=== PATIENT | female | born 1960 | race Caucasian/White ===

== ENCOUNTER 2019-04-06 15:46 | Inpatient (IN) | payer MEDICARE, MEDICAID, SELFPAY ==
[2019-04-06] VITALS (9 sets, daily range): BP systolic 127–180; BP diastolic 53–115; PULSE 81–106; RESP 18–26; TEMP 36.8–37; O2SAT 90–98; BMI 46.3; BMI 45.2
--- NOTE | 2019-04-06 16:13 | EKG12_ITS ---
Test Reason : SOB Blood Pressure : / mmHG Vent. Rate : 092 BPM Atrial Rate : 092 BPM P-R Int : 150 ms QRS Dur : 076 ms QT Int : 340 ms P-R-T Axes : 069 054 052 degrees QTc Int : 420 ms Normal sinus rhythm Normal ECG Confirmed by YAW LEIJA, GERALD ([id number]), video news editor JAMES BERGER ([id number]) on 04/08/2019 2:04:50 PM Referred By: Jory Raines Confirmed By:GERALD TIDWELL MD
--- NOTE | 2019-04-06 16:34 | ED.VIS.DYS ---
History of Present Illness Chief Complaint: Shortness of Breath Informant: Patient Narrative: Patient presenting for evaluation secondary to shortness of breath. Patient has a underlying history of COPD, chronically on 3 L at home. Patient reports that over the course of about the last 10 days she has had persistent wheezing cough shortness of breath and subjective fevers. She denies any nausea vomiting or diarrhea. She reports that she presented to her primary care office, and they started her on a course of prednisone. She reports that she has been on that over the course of about the last 8 days but is not having any improvement in her symptoms. She denies any chest pain, she does endorse that she has been having some issues with orthopnea recently. She denies any unintended weight gain. No recent hospital admissions or antibiotic exposures. Review of systems otherwise negative. Past Medical History - Allergies and Home Meds Allergies/Adverse Reactions: Allergies cephalexin [From Keflex] Allergy (Verified 04/06/19 15:47) Angioedema ciprofloxacin [From Cipro] Allergy (Verified 04/06/19 15:47) Angioedema sulfamethoxazole [From Bactrim] Allergy (Verified 04/06/19 15:47) Angioedema trimethoprim [From Bactrim] Allergy (Verified 04/06/19 15:47) Angioedema Primary Care Physician: Jake Chavez MD [Family Provider] - Past Medical History: - - COPD, CHF, diabetes, hyperlipidemia Smoking Status: Current every day smoker Review of Systems All systems negative except as indicated General: Reports: Fever, Subjective Eyes: Denies: Visual changes - bilaterally, Diplopia ENT: Denies: Rhinorrhea, Sore throat Cardiovascular: Denies: Chest pain Respiratory: Reports: Dyspnea, Cough, Dyspnea on exertion, Orthopnea Gastrointestinal: Denies: Abdominal pain, Nausea, Vomiting, Diarrhea, Melena, Hematochezia Genitourinary: Denies: Dysuria, Hematuria, Frequency Musculoskeletal: Denies: Back pain, Extremity Pain Skin: Denies: Rash, Wounds Neurological: Denies: Headache, Weakness, Numbness Physical Exam Vital Signs/Narrative: Vital Signs Temp Pulse Resp BP Pulse Ox 04/06/19 15:58 89 24 H 98 04/06/19 15:47 98.5 F 81 18 148/70 H 97 Inital Vital Signs reviewed: Yes General: Well nourished, Well developed, Obese, No Acute Distress Head: Normocephalic, Atraumatic Eyes: Perrl, EOMI. Negative for: Pale conjunctiva, Scleral icterus ENT: Moist mucous membranes Neck: Supple, Nontender Cardiovascular: Regular rate, Regular rhythm, No murmurs Respiratory: - - Prolonged expiratory phase with wheezing throughout the lung santiago and some poor air movement. No respiratory distress or accessory muscle usage. Abdomen: Soft, Nontender, Nondistended, Normal bowel sounds Extremities: Edema - +1 bilaterally symmetric Skin: Normal color, No rash Neurological: Alert, Oriented x3, Cranial nerves II-XII grossly intact, Normal Strength, Normal Sensation Psychological: Normal affect, Normal Mood Diagnostic/Tx/Re-eval Chest X-Ray - ED: 2 View, Read by ED Physician, Read by Radiologist, Normal - Medical Decision Making Patient presenting for evaluation secondary to shortness of breath. Patient was given breathing treatments and Solu-Medrol in the emergency department. PA and lateral chest x-ray by my personal review as well as radiology is found to be negative. CBC chemistry and troponin as well as BNP found to be unremarkable. After 3 breathing treatments, the patient was still significantly dyspneic and was hypoxic on her home O2 at 3 L. She was given an additional 3 breathing treatments, and still has hypoxia at rest on her home O2. I believe she requires admission for failure of outpatient treatment. Disposition: Admit to Med Surg ED Disposition - Plan for ED Patient: Disposition: Acute Care Hospital [facility] Diagnosis: COPD exacerbation, Failure of outpatient treatment
[2019-04-06] MEDS: Albuterol 2.5 MG/3 ML VIAL.NEB. INHALATION ×6 (16:40→18:51)
[2019-04-06] MEDS: Ipratropium/Albuterol Sulfate 3 ML AMPUL.NEB INHALATION ×2 (16:40→23:00)
--- NOTE | 2019-04-06 16:42 | ED.RN ---
2 attempts by moustapha flores 3 attempted by this nurse. unsuccessful./
[2019-04-06] MEDS: MethylPREDNISolone 125 MG/2 ML Vial IV (16:54)
--- NOTE | 2019-04-06 17:05 | RAD_ITS ---
STUDY: X-RAY CHEST REASON FOR EXAM: Female, 59 years old. Chest pain TECHNIQUE: Frontal view of the chest COMPARISON: None. FINDINGS: The lungs are clear. There are no pleural effusions. There is no pneumothorax. The heart is normal in size. The visualized osseous structures are within normal limits. RAD/Chest PA and Lateral IMPRESSION: No acute thoracic pathology. Electronically Signed: Jake Mariano, at 17:34 EST Tel , Service support ,
[2019-04-06 17:37] LABS: Absolute Lymphocyte Count 1.99 X10^3/uL (0.83-4.51); Absolute Neutrophil Count 6.5 X10^3/uL (2.0-7.7); Basophil# 0.03 X10^3/uL; Basophil% 0.3 % (0-1); Eosinophil# 0.09 X10^3/uL; Hematocrit 40.6 % (37-47); Hemoglobin 13.1 g/dL (12.0-15.0); Lymphocyte # 1.99 X10^3/ul (4.0); Lymphocyte % 21.2 % (19-41); Mean Corp Hgb Conc 32.3 g/dL (32-36); Mean Corpuscular Hgb 30.1 pg (27.0-32.0); Mean Corpuscular Volume 93.3 fL (81-99); Mean Platelet Vol. 10.2 fl (6.2-12.0); Monocyte# 0.74 X10^3/uL; Monocyte% 7.9 % (0-10); NRBC Flagged by Analyzer 0 % (0-5); Neutrophil # 6.47 X10^3/uL (2.7-7.7); Neutrophil % 68.9 % (47-70); Platelet Count 215 K/mm3 (150-450); RBC Distribution Width CV 14.1 % (11.6-14.6); RBC Distribution Width SD 48.4 fl (35.1-43.9); Red Blood Count 4.35 M/mm3 (4.2-5.4); White Blood Count 9.4 K/mm3 (4.4-11.0)
[2019-04-06 17:40] LABS: Anion Gap 5 (5-15); BUN 9 mg/dL (7-18); BUN/Creat Ratio 11.2 RATIO (10-20); Calcium,Total 9.1 mg/dL (8.5-10.1); Chloride 100 mmol/L (98-107); EST Glomerular Filtration Rate 78 mL/min (>60); Est Glom Filt Rate - Afr Amer 94 mL/min (>60); Estimated Creatinine Clearance 60.62 ml/min; Glucose 125 mg/dL (74-106); Potassium 4.3 mmol/L (3.5-5.1); Sodium Level 134 mmol/L (136-145)
--- NOTE | 2019-04-06 20:11 | PCM.HP.STD ---
History of Present Illness Date of Admission: 04/06/19 The patient is a 59 year old F with multiple medical issues who presented to the ED today with worsening SOB. She has chronic underlying COPD for which she is only on albuterol at home. She was seen by her PCP about 8 days ago, after having 2 days of SOB, and was given a course of prednisone. She has not had any improvement in her sx and still is complaining SOB. She states she wheezes chronically and still smokes 1/2 PPD but has been smoking for 46 yrs and was smoking 3 PPD up until about 10 yrs ago. She is on chronic O2 at home, which she removes when she smokes, of about 3 L. She denies CP but does c/o of some chest tightness with trying to breath deeply. She states that she is feeling a little better since treatment in the ED but is still fairly SOB. She does have ISABELL and wears CPAP at home of she thinks 10 cm H20. She has chills but no documented fever. She is tachypneic and sats are 90% at the lowest on 3 L in the ED. Past Medical History Past Medical History (Chronic Problems): Chronic Problems (Last Updated 04/06/19 @ 21:11 by Jory Raines DO) COPD exacerbation (Chronic) Medical History: Medical History (Last Updated 04/06/19 @ 21:11 by Jory Raines DO) Anxiety F41.9 Depression F32.9 Diabetes E11.9 GERD (gastroesophageal reflux disease) K21.9 Morbid obesity E66.01 Neuropathy G62.9 ISABELL (obstructive sleep apnea) G47.33 COPD (chronic obstructive pulmonary disease) J44.9 Allergies cephalexin [From Keflex] Allergy (Verified 04/06/19 15:47) Angioedema ciprofloxacin [From Cipro] Allergy (Verified 04/06/19 15:47) Angioedema sulfamethoxazole [From Bactrim] Allergy (Verified 04/06/19 15:47) Angioedema trimethoprim [From Bactrim] Allergy (Verified 04/06/19 15:47) Angioedema Home Medications: Ambulatory Orders Medication Instructions Recorded Colestipol HCl 1 gm PO DAILY 04/06/19 Divalproex Ec 500 mg PO BID 04/06/19 Ibuprofen 600 mg PO TID 04/06/19 Insulin Glargine,Hum.rec.anlog 60 unit SQ QHS 04/06/19 [Basaglar Kwikpen U-100] Insulin Regular, Human [Novolin R] 0 unit SUBCUT ACHS 04/06/19 Lorazepam 0.5 mg PO BID PRN PRN 04/06/19 Metformin HCl 500 mg PO BID 04/06/19 Pantoprazole Sodium [Protonix] 40 mg PO DAILY 04/06/19 Potassium Chloride [K-Dur] 30 meq PO BID 04/06/19 Prednisone 10 mg PO DAILY 04/06/19 Pregabalin 100 mg PO TID 04/06/19 Quetiapine Fumarate [Seroquel] 12.5 mg PO DAILY 04/06/19 Sucralfate [Carafate] 1 gm PO BID 04/06/19 Venlafaxine HCl [Venlafaxine HCl 75 mg PO DAILY 04/06/19 ER] traZODone [Desyrel] 100 mg PO QHS 04/06/19 Surgical History: no surgical history Psychiatric History: No pertinent psych hx Lives: Spouse/ Significant Other Smoking Status: Current every day smoker Tobacco Use: Cigarettes - 10 cigs/day Alcohol: None Drugs: None Review of Systems Constitutional: Reports: Chills, Weakness, Fatigue. Denies: Anorexia, Fever, Night Sweats, Malaise, Weight Change Eyes: Denies: Blurred vision, Cataracts, Conjunctivae Inflammation, Double vision, Drainage, Eyelid Inflammation, Pain, Redness, Vision Change HEENT: Reports: Nasal Congestion. Denies: Difficulty Hearing, Difficulty Swallowing, Dysphasia, Ear Pain, Eye Pain, Hard of Hearing, Head Aches, Hearing Changes, Nasal bleeding, Post Nasal Drip, Sinus Congestion, Sinus Drainage, Sore Throat, Visual Changes Cardiovascular: Reports: Chest Tightness, Light Headedness, Palpitations, Paroxysmal Noc. Dyspnea, Syncope. Denies: Chest Pain, Claudication, Chest Pressure, Edema, Heaviness, Orthopnea Respiratory: Reports: Cough, Pleuritic Pain, Shortness of Breath, Shortness of breath at rest, Sputum production, Wheezing. Denies: Hemoptysis Gastrointestinal: Denies: Abdominal Pain, Constipation, Diarrhea, Dyspepsia, Hematemesis, Hematochezia, Nausea, Melena, Vomiting Genitourinary: Denies: Dysuria, Frequency, Hematuria, Hesitancy, Incontinence, Nocturia, Retention, Urgency Musculoskeletal: Denies: Arm Pain, Back Pain, Foot Pain, Hand Pain, Joint Pain, Joint stiffness, Joint swelling, Joint Tenderness, Leg Pain, Muscle pain, Neck Pain, Shoulder Pain Skin: Reports: Dryness. Denies: Jaundice, Lesions, Pruritis, Rash, Skin Changes Neurological: Denies: Balance problems, Blurred vision, Double vision, Change in Speech, Slurred speech, Confusion, Difficulty swallowing, Focal weakness, Headaches, Incoordination, Numbness, Tingling, Tremor, Seizures Psychiatric: Denies: Anxiety, Depression, Suicidal Ideations Endocrine: Denies: Change in Body Habitus, Heat/ Cold Intolerance, Polydipsia, Polyuria Hematologic/ Lymphatic: Denies: Adenopathy VTE Information - Inpt Only VTE Present on Admission: No VTE Mechan Device Prophylaxis: SCD's VTE Pharm Prophylaxis ordered?: Yes Patient Problems: Active and Suspected Problems (Last Updated 04/06/19 @ 21:11 by Jory Raines DO) Failure of outpatient treatment (Acute) - Physical Exam Vitals/I&O's: Vital Signs Temp Pulse Resp BP Pulse Ox 98.4 F 104 H 20 H 180/101 H 90 04/06/19 17:24 04/06/19 18:42 04/06/19 18:42 04/06/19 18:42 04/06/19 18:42 Oxygen Flow Rate (L/min) 3 Oxygen Delivery Method Nasal Cannula Weight: 114.759 kg Body Mass Index (BMI) 46.3 General: Alert, Oriented x3, Cooperative, No apparent distress, Well developed, Well nourished, - - MO HEENT: Atraumatic, PERRLA, EOMI, Normocephalic, EAC Clear Oral: Moist Mucosa, No Gingival or Mucosal Lesions/ Ulcerations, - - fair dentition, no thrush Neck: Supple, No JVD, Negative Carotid Bruits, Negative Hepatojugular Reflux, No Nodes, Trachea Midline, Thyroid Normal Size and Texture Lungs: No rhonchi, No rales, Diminished - diffusely, Short of Breath, Tachypneic - very mild, Wheezes - diffuse Cardiovascular: Regular rate, Normal S1, Normal S2, No murmurs, No Ectopic Activity, No rub noted, No Gallop Abdomen: Bowel Sounds Present, Soft, Non Tender, Non-Distended, No Hepato-splenomegaly, Obese Extremities: No clubbing, No cyanosis, Edema - trace B LE Skin: No rashes Musculoskeletal: No Muscle Wasting Lymphatic: No Cervical, Supraclavicular, or Inguinal Adenopathy Neurological: Cranial nerves II-XII grossly intact, Deep Tendon Reflexes 2+/4 and Symmetrical, Neuro grossly intact, Motor Exam 5/5 strength throughout Psych/Mental Status: Normal Affect, Appropriate, Alert and oriented to time, place, person, mood and affect Microbiology Past 72 Hours 04/06/19 16:45 Mucosa - Nose Influenza Types A,B Direct FA (JULIETA) - Final Laboratory Results 04/06/19 16:55: WBC 9.4, RBC 4.35, Hgb 13.1, Hct 40.6, MCV 93.3, MCH 30.1, MCHC 32.3, RDW Std Deviation 48.4 H, RDW Coeff of Da 14.1, Plt Count 215, MPV 10.2, Immature Gran % (Auto) 0.700, Neut % (Auto) 68.9, Lymph % (Auto) 21.2, [place] % (Auto) 7.9, Eos % (Auto) 1.0, Baso % (Auto) 0.3, Absolute Neuts (auto) 6.5, Absolute Lymphs (auto) 1.99, Nucleated RBC % 0 04/06/19 16:55: Sodium 134 L, Potassium 4.3, Chloride 100, Carbon Dioxide 29.0, Anion Gap 5, BUN 9, Creatinine 0.80, Estim Creat Clear Calc 60.62, Est GFR (MDRD) Af Amer 94, Est GFR (MDRD) Non-Af 78, BUN/Creatinine Ratio 11.2, Glucose 125 H, Calcium 9.1, Troponin I < 0.015 04/06/19 16:55: B-Natriuretic Peptide 20.0 Assessment/Plan All Active Problems (Last Updated 04/06/19 @ 21:11 by Jory Raines DO) Failure of outpatient treatment (Acute) Acute on Chronic Hypoxemic Respiratory Insufficiency suspected 2/2 AECOPD -5 L nasal cannula (baseline 3) -ok for sat 90-92% -Azithro and Zosyn (many abx allergies) -DuoNebs scheduled -legionella/S.pneumo urine antigens -flu swab -solumedrol 60 q 6 hrs -check CT chest -cxr limited with body habitus -consider ECHO depending on CT results (trops neg/BMP low) -CPAP at HS -Consult pulm -pt needs outpt f/u ISABELL -CPAP 10 cm H2O at hs MO -recommend wgt loss Mild Hyponatremia -monitor--> may be related to pulm issues DM-2 -check A1c -continue Basal insulin 60 u at HS -hold metformin -SSI Med dose -may need higher doses with steroids Diabetic neuropathy -continue Elavil and Lyrica Depression/Anxiety -continue Seroquel/Effexor -prn ativan (home med) would try to wean GERD -Continue PPI/Carafate Tobacco Abuse -Nicotine patch -recommend cessation DVT prophylaxis -SCD/Heparin Code Visit Inpatient E&M: [id number] Init Hosp L3
[2019-04-06] MEDS: Heparin Injection (Vial) 5,000 UNIT/ML VIAL 5000 UNIT SC (23:07)
[2019-04-06] MEDS: traZODone 100 MG Tablet PO (23:08)
[2019-04-06] MEDS: guaiFENesin 600 MG Tablet PO (23:08)
[2019-04-06] MEDS: QUEtiapine 25 MG Tablet 12.5 MG PO (23:08)
[2019-04-06] MEDS: Pregabalin 50 MG Capsule 100 MG PO (23:12)
[2019-04-06 23:21] LABS: Bedside Glucose 290 mg/dL (70-110)
[2019-04-07] VITALS (13 sets, daily range): BP systolic 122–143; BP diastolic 60–86; PULSE 70–102; RESP 14–24; TEMP 36.6–37; O2SAT 91–96
--- NOTE | 2019-04-07 00:01 | CT_ITS ---
HISTORY: PERSISTENT SOB, COPD, DAILY 02, 1/2 PPD SMOKER, DIAB TECHNIQUE: Helically acquired images of the chest were obtained without IV contrast. Number of images including paperwork: [id number]. A radiation dose optimization technique was used for this scan. COMPARISON: None FINDINGS: Motion artifact mildly limits evaluation. VASCULATURE: Vascular calcification including calcification of the coronary arteries. HEART/PERICARDIUM: Mildly enlarged MEDIASTINUM: Unremarkable. ADENOPATHY: No pathologic appearing adenopathy. THYROID: Unremarkable visualized portions. LUNG PARENCHYMA: No consolidation or mass. Mild linear basilar subsegmental atelectasis versus scarring. No focal infiltrate. PLEURAL SPACES: Unremarkable. UPPER ABDOMEN: Bilateral adrenal adenomas, measuring about 2.6 x 1.5 cm on the right and 2.3 x 1.7 cm on the left. OSSEOUS AND SOFT TISSUE STRUCTURES: No acute skeletal findings. Radiopaque cement within L1 partially visualized. DEVICES: Cervical spine hardware partially visualized. CT/Chest without Contrast IMPRESSION: Mild linear basilar subsegmental atelectasis versus scarring. Individualized dose optimization techniques were used for this CT. at 0101 Reported and signed by: Kori Stapleton MD Electronically Signed: Kori Stapleton MD at 1:01 EST Tel , Service support ,
[2019-04-07] MEDS: MethylPREDNISolone 125 MG/2 ML Vial 60 MG IV ×4 (00:39→17:47)
[2019-04-07] MEDS: Ipratropium/Albuterol Sulfate 3 ML AMPUL.NEB INHALATION ×6 (02:30→23:51)
[2019-04-07] MEDS: Heparin Injection (Vial) 5,000 UNIT/ML VIAL 5000 UNIT SC ×3 (06:12→21:31)
[2019-04-07] MEDS: Pregabalin 50 MG Capsule 100 MG PO ×3 (06:12→21:32)
[2019-04-07 06:19] LABS: Absolute Lymphocyte Count 0.77 X10^3/uL (0.83-4.51); Absolute Neutrophil Count 6.7 X10^3/uL (2.0-7.7); Basophil# 0.02 X10^3/uL; Basophil% 0.3 % (0-1); Hematocrit 39.4 % (37-47); Hemoglobin 12.4 g/dL (12.0-15.0); Lymphocyte # 0.77 X10^3/ul (4.0); Lymphocyte % 10.1 % (19-41); Mean Corp Hgb Conc 31.5 g/dL (32-36); Mean Corpuscular Hgb 29.2 pg (27.0-32.0); Mean Corpuscular Volume 92.9 fL (81-99); Monocyte# 0.11 X10^3/uL; Monocyte% 1.4 % (0-10); NRBC Flagged by Analyzer 0 % (0-5); Neutrophil # 6.68 X10^3/uL (2.7-7.7); Neutrophil % 87.2 % (47-70); Platelet Count 227 K/mm3 (150-450); RBC Distribution Width CV 13.8 % (11.6-14.6); Red Blood Count 4.24 M/mm3 (4.2-5.4); White Blood Count 7.7 K/mm3 (4.4-11.0)
[2019-04-07] MEDS: Sucralfate 1 GM Tablet PO ×2 (06:53→17:46)
[2019-04-07] MEDS: Insulin Lispro 100 UNIT/ML INSULN.PEN SC ×3 (06:53→17:46)
[2019-04-07 07:23] LABS: ALB/GLOB Ratio 0.8 RATIO (0.9-2.4); AST(SGOT) 5 U/L (15-37); Alanine Aminotransfer ALT/SGPT 13 U/L (13-56); Albumin, Serum 3.2 g/dL (3.2-5.0); Alkaline Phosphatase 53 U/L (45-117); Anion Gap 7 (5-15); BUN 12 mg/dL (7-18); BUN/Creat Ratio 12.1 RATIO (10-20); Calcium,Total 8.8 mg/dL (8.5-10.1); Chloride 98 mmol/L (98-107); Creatinine, Serum 0.99 mg/dL (0.55-1.02); EST Glomerular Filtration Rate 61 mL/min (>60); Est Glom Filt Rate - Afr Amer 74 mL/min (>60); Estimated Creatinine Clearance 48.99 ml/min; Glucose 237 mg/dL (74-106); Phosphorus 3.4 mg/dL (2.5-4.9); Potassium 4.7 mmol/L (3.5-5.1); Protein, Total 7.2 g/dL (6.4-8.2); Sodium Level 134 mmol/L (136-145); Thyroid Stim Hormone (TSH) 0.81 uIU/mL (0.358-3.74)
[2019-04-07 07:25] LABS: Bedside Glucose 240 mg/dL (70-110)
--- NOTE | 2019-04-07 07:53 | PCM.CONS.PUL ---
Reason for Consult Date of Consultation: 04/07/19 Reason for Consultation: COPD exacerbation History of Present Illness: The patient is a 59-year-old female, with a history as outlined below, who presented to the emergency department on April 06 with complaints of shortness of breath. The patient reportedly has a history of COPD of unknown severity along with chronic hypoxemic respiratory failure with a baseline 3 L/min supplemental oxygen requirement. The patient reports that she was previously being managed by a transportation broker in [place]. She recently relocated to the area, noting that she was last seen by her prior pulmonary provider in the spring 2018. She apparently was evaluated by her primary care provider last week, who placed her on prednisone. The patient's symptoms apparently did not respond to the use of the steroid. The patient is an active smoker of 0.5 packs of cigarettes per day. She was previously a heavier smoker and has been smoking now for approximately 46 years. In addition to her history of COPD, she reports having known obstructive sleep apnea, for which she is prescribed nocturnal Pap therapy. The patient states that she is currently only prescribed a Ventolin rescue inhaler in her home environment. She does not currently utilize any form of a maintenance inhaler regimen. In addition to her shortness of breath, the patient does report having previously had a cough, which was nonproductive in nature. On presentation to the emergency department, the patient was noted to be afebrile and hemodynamically stable. She was maintaining appropriate oxygen saturations on her baseline 3 L/min requirement. Laboratory evaluation revealed no evidence of a leukocytosis. Chemistry profile was unremarkable. Troponin and BNP were both unremarkable. Plain film chest x-ray revealed no acute cardiopulmonary process. A CT chest was subsequently obtained which revealed no focal infiltrate, consolidation, nodule or mass. The patient was subsequently treated with aerosols and IV steroids. The patient was admitted to the medical surgical floor, where she has been maintained on antimicrobials, bronchodilators and steroids. Past Medical History Past Medical History (Chronic Problems): Chronic Problems (Last Updated 04/06/19 @ 21:11 by Jory Raines DO) COPD exacerbation (Chronic) Medical History: Medical History (Last Updated 04/06/19 @ 21:11 by Jory Raines DO) Anxiety F41.9 Depression F32.9 Diabetes E11.9 GERD (gastroesophageal reflux disease) K21.9 Morbid obesity E66.01 Neuropathy G62.9 ISABELL (obstructive sleep apnea) G47.33 COPD (chronic obstructive pulmonary disease) J44.9 Allergies cephalexin [From Keflex] Allergy (Verified 04/06/19 15:47) Angioedema ciprofloxacin [From Cipro] Allergy (Verified 04/06/19 15:47) Angioedema sulfamethoxazole [From Bactrim] Allergy (Verified 04/06/19 15:47) Angioedema trimethoprim [From Bactrim] Allergy (Verified 04/06/19 15:47) Angioedema bees Adverse Reaction (Uncoded 04/06/19 20:14) Hives seafood Adverse Reaction (Uncoded 04/06/19 20:14) Hives Home Medications: Ambulatory Orders Medication Instructions Recorded Colestipol HCl 1 gm PO DAILY 04/06/19 Divalproex Ec 500 mg PO BID 04/06/19 Ibuprofen 600 mg PO TID 04/06/19 Insulin Glargine,Hum.rec.anlog 60 unit SQ QHS 04/06/19 [Basaglar Kwikpen U-100] Insulin Regular, Human [Novolin R] 0 unit SUBCUT ACHS 04/06/19 Lorazepam 0.5 mg PO BID PRN PRN 04/06/19 Metformin HCl 500 mg PO BID 04/06/19 Pantoprazole Sodium [Protonix] 40 mg PO DAILY 04/06/19 Potassium Chloride [K-Dur] 30 meq PO BID 04/06/19 Prednisone 10 mg PO DAILY 04/06/19 Pregabalin 100 mg PO TID 04/06/19 Quetiapine Fumarate [Seroquel] 12.5 mg PO DAILY 04/06/19 Sucralfate [Carafate] 1 gm PO BID 04/06/19 Venlafaxine HCl [Venlafaxine HCl 75 mg PO DAILY 04/06/19 ER] traZODone [Desyrel] 100 mg PO QHS 04/06/19 Surgical History: no surgical history Psychiatric History: No pertinent psych hx Lives: Spouse/ Significant Other Smoking Status: Current every day smoker Tobacco Use: Cigarettes - 10 cigs/day Alcohol: None Drugs: None Review of Systems Constitutional: Denies: Chills, Fever Eyes: Denies: Blurred vision, Double vision HEENT: Denies: Head Aches, Sinus Congestion, Sinus Drainage Cardiovascular: Denies: Chest Pain, Palpitations Respiratory: Reports: Cough, Shortness of Breath. Denies: Sputum production Gastrointestinal: Denies: Abdominal Pain, Nausea, Vomiting Genitourinary: Denies: Dysuria Musculoskeletal: Denies: Joint Pain, Joint Tenderness Skin: Denies: Rash, Wounds Neurological: Denies: Numbness, Tingling, Focal weakness Psychiatric: Reports: Anxiety Hematologic/ Lymphatic: Denies: Easy Bruising, Easy Bleeding Patient Problems: Active and Suspected Problems (Last Updated 04/06/19 @ 21:11 by Jory Raines DO) Failure of outpatient treatment (Acute) Objective: The patient's most recent lab work, culture data and imaging studies have all been personally reviewed. Rapid influenza screen was negative. Sputum culture is currently pending. - Physical Exam Vitals/I&O's: Vital Signs Temp Pulse Resp BP Pulse Ox 98.0 F 76 20 H 122/71 H 93 04/07/19 07:45 04/07/19 07:45 04/07/19 07:45 04/07/19 07:45 04/07/19 07:45 Oxygen Flow Rate (L/min) 3 Oxygen Delivery Method Nasal Cannula Weight: 246 lb 0.574 oz Body Mass Index (BMI) 45.2 Intake and Output for Last 24 Hours 04/05/19 04/06/19 04/07/19 23:59 23:59 23:59 Intake Total 872.25 / 872.25 Output Total 950 / 950 Balance -77.75 / -77.75 General: Alert, Cooperative, No apparent distress, - - Morbidly obese. Sitting upright in bed. HEENT: Atraumatic, PERRLA, Normocephalic Oral: No Gingival or Mucosal Lesions/ Ulcerations Neck: Supple, No Nodes, Trachea Midline, - - Large neck circumference with redundant soft tissue. Lungs: - - Poor patient dependent inspiratory effort with globally diminished air movement. No appreciable wheezes, rales or rhonchi. Cardiovascular: Regular rate, Regular Rhythm, Normal S1, Normal S2, No murmurs Abdomen: Bowel Sounds Present, Soft, Non Tender, Obese Extremities: No clubbing, No cyanosis, Edema Skin: No breakdown Musculoskeletal: No Tenderness to Palpation of Joints or Extremities, No Muscle Wasting Lymphatic: No Cervical, Supraclavicular, or Inguinal Adenopathy Neurological: Cranial nerves II-XII grossly intact, Neuro grossly intact Psych/Mental Status: Flat Affect Labs (Last 48 Hours) 04/06/19 04/06/19 04/06/19 16:55 16:55 16:55 WBC 9.4 RBC 4.35 Hgb 13.1 Hct 40.6 MCV 93.3 MCH 30.1 MCHC 32.3 RDW Std Deviation 48.4 H RDW Coeff of Da 14.1 Plt Count 215 MPV 10.2 Immature Gran % (Auto) 0.700 Neut % (Auto) 68.9 Lymph % (Auto) 21.2 Terry % (Auto) 7.9 Eos % (Auto) 1.0 Baso % (Auto) 0.3 Absolute Neuts (auto) 6.5 Absolute Lymphs (auto) 1.99 Nucleated RBC % 0 Sodium 134 L Potassium 4.3 Chloride 100 Carbon Dioxide 29.0 Anion Gap 5 BUN 9 Creatinine 0.80 Estim Creat Clear Calc 60.62 Est GFR (MDRD) Af Amer 94 Est GFR (MDRD) Non-Af 78 BUN/Creatinine Ratio 11.2 Glucose 125 H Hemoglobin A1c Calcium 9.1 Phosphorus Magnesium Total Bilirubin AST ALT Alkaline Phosphatase Troponin I < 0.015 B-Natriuretic Peptide 20.0 Total Protein Albumin Globulin Albumin/Globulin Ratio TSH POC Glucose 04/06/19 04/07/19 04/07/19 23:04 05:35 05:35 WBC 7.7 RBC 4.24 Hgb 12.4 Hct 39.4 MCV 92.9 MCH 29.2 MCHC 31.5 L RDW Std Deviation 47.0 H RDW Coeff of Da 13.8 Plt Count 227 MPV 10.0 Immature Gran % (Auto) 1.000 H Neut % (Auto) 87.2 H Lymph % (Auto) 10.1 L Terry % (Auto) 1.4 Eos % (Auto) 0.0 Baso % (Auto) 0.3 Absolute Neuts (auto) 6.7 Absolute Lymphs (auto) 0.77 L Nucleated RBC % 0 Sodium Potassium Chloride Carbon Dioxide Anion Gap BUN Creatinine Estim Creat Clear Calc Est GFR (MDRD) Af Amer Est GFR (MDRD) Non-Af BUN/Creatinine Ratio Glucose Hemoglobin A1c Pending Calcium Phosphorus Magnesium Total Bilirubin AST ALT Alkaline Phosphatase Troponin I B-Natriuretic Peptide Total Protein Albumin Globulin Albumin/Globulin Ratio TSH POC Glucose 290 H 04/07/19 04/07/19 05:35 06:52 WBC RBC Hgb Hct MCV MCH MCHC RDW Std Deviation RDW Coeff of Da Plt Count MPV Immature Gran % (Auto) Neut % (Auto) Lymph % (Auto) Terry % (Auto) Eos % (Auto) Baso % (Auto) Absolute Neuts (auto) Absolute Lymphs (auto) Nucleated RBC % Sodium 134 L Potassium 4.7 Chloride 98 Carbon Dioxide 29.0 Anion Gap 7 BUN 12 Creatinine 0.99 Estim Creat Clear Calc 48.99 Est GFR (MDRD) Af Amer 74 Est GFR (MDRD) Non-Af 61 BUN/Creatinine Ratio 12.1 Glucose 237 H Hemoglobin A1c Calcium 8.8 Phosphorus 3.4 Magnesium 2.0 Total Bilirubin 0.20 AST 5 L ALT 13 Alkaline Phosphatase 53 Troponin I B-Natriuretic Peptide Total Protein 7.2 Albumin 3.2 Globulin 4.0 Albumin/Globulin Ratio 0.8 L TSH 0.81 POC Glucose 240 H Microbiology 04/06/19 16:45 Mucosa - Nose Influenza Types A,B Direct FA ([facility]) - Final Clinical Impression(s) from Imaging Studies Chest X-Ray 04/06/19 17:05 IMPRESSION: No acute thoracic pathology. Electronically Signed: Jake Mariano, at 17:34 EST Tel , Service support , Chest CT 04/07/19 00:01 IMPRESSION: Mild linear basilar subsegmental atelectasis versus scarring. Individualized dose optimization techniques were used for this CT. at 0101 Reported and signed by: Kori Stapleton MD Electronically Signed: Kori Stapleton MD at 1:01 EST Tel , Service support , Current Medications Albuterol/Ipratropium (Duoneb) 3 ml INHALATION Q4H.RT GI Last Admin: 04/07/19 07:13 Dose: 3 ml Documented by: Dextrose (D50w Syringe) 0 gm IV X1 PRN; Protocol PRN Reason: Hypoglycemia Glucagon () 1 mg IM .X1 PRN PRN Reason: Hypoglycemia Guaifenesin (Mucinex) 600 mg PO BID [facility] Last Admin: 04/06/19 23:08 Dose: 600 mg Documented by: Heparin Sodium (Porcine) (Heparin Na) 5,000 unit SC Q8 [facility] Last Admin: 04/07/19 06:12 Dose: 5,000 unit Documented by: Azithromycin 500 mg/ Dextrose 255 mls @ 250 mls/hr IV Q24@2200 [facility] Stop: 04/08/19 23:02 Last Infusion: 04/07/19 00:13 Dose: Infused Documented by: Piperacillin Sod/Tazobactam (Sod 3.375 gm/ Sodium Chloride) 50 mls @ 12.5 mls/hr IV Q8 [facility] Last Admin: 04/07/19 06:13 Dose: 12.5 mls/hr Documented by: Sodium Chloride () 250 mls @ 15 mls/hr IV .[id number] PRN PRN Reason: Saline Flush Last Infusion: 04/07/19 00:40 Dose: 0 mls/hr Documented by: Insulin Glargine (Lantus (Bkc)) 60 units SC QHS [facility] Last Admin: 04/06/19 23:08 Dose: 60 u Documented by: Insulin Human Lispro (Humalog Kwikpen (Bkc)) 0 unit SC TIDAC [facility]; Protocol Last Admin: 04/07/19 06:53 Dose: 3 u Documented by: Lorazepam (Ativan) 0.5 mg PO Q12H PRN PRN PRN Reason: ANXIETY Magnesium Hydroxide (Milk Of Magnesia) 30 ml PO DAILY PRN PRN PRN Reason: Constipation Melatonin (Melatonin) 3 mg PO QHS PRN PRN PRN Reason: INSOMNIA Methylprednisolone (Solu-Medrol) 60 mg IV Q6 [facility] Last Admin: 04/07/19 06:13 Dose: 60 mg Documented by: Nicotine (Nicoderm Cq (Pbkc)) 14 mg TRANSDERM. DAILY [facility] Nutritional Formula (Lactose Free) (Glucerna Shake) 120 ml PO 4X/DAY [facility] Nystatin (Mycostatin Powder) 1 applic TOPICAL BID [facility]; Protocol Pantoprazole Sodium (Protonix) 40 mg PO DAILY [facility] Pregabalin (Lyrica) 100 mg PO TID [facility] Last Admin: 04/07/19 06:12 Dose: 100 mg Documented by: Quetiapine Fumarate (Seroquel) 12.5 mg PO QHS [facility] Last Admin: 04/06/19 23:08 Dose: 12.5 mg Documented by: Sodium Chloride () 10 - 40 ml IV UD PRN PRN Reason: SALINE FLUSH Sucralfate (Carafate) 1 gm PO BID@0700,1600 [facility] Last Admin: 04/07/19 06:53 Dose: 1 gm Documented by: Trazodone HCl (Desyrel) 100 mg PO QHS [facility] Last Admin: 04/06/19 23:08 Dose: 100 mg Documented by: Venlafaxine HCl (Effexor Xr) 75 mg PO DAILY [facility] Assessment/Plan All Active Problems (Last Updated 04/06/19 @ 21:11 by Jory Raines DO) Failure of outpatient treatment (Acute) RECOMMENDATIONS: 1. Continue bronchodilators and steroids. 2. Continue empiric antimicrobials, pending culture results. 3. Check respiratory viral panel. 4. Continue baseline supplemental oxygen at 3 L/min. 5. Continue PAP therapy with naps and nightly. 6. Perform walking oximetry study prior to consideration for discharge home. 7. Outpatient pulmonary follow-up within 2 weeks of discharge is warranted. IMPRESSIONS: 1. COPD with exacerbation The patient presented to the hospital with complaints of shortness of breath. She appears to be maintaining appropriate oxygen saturations on her baseline 3 L/min requirement. She does have an extensive smoking history and does report having been evaluated by transportation broker in [place] previously. Strangely, however, the patient is only prescribed Ventolin on an as-needed basis in her home environment. She is not currently on any maintenance inhalers. Neither the patient's chest x-ray or CT chest revealed evidence of pneumonia. However, antibiotics can be continued, pending the results of the patient's sputum culture. We will plan to obtain a respiratory viral panel as well. In the interim, the patient will be continued on bronchodilators and IV steroids. I would recommend outpatient pulmonary follow-up within 2 weeks so that baseline PFTs can be obtained. In addition, I do find it strange that the patient is currently only prescribed Ventolin on an as-needed basis in her home environment, despite having a known history of COPD. She would likely benefit from the initiation of a maintenance inhaler regimen and can likely be placed on a combination LABA/LAMA, like Anoro or Stiolto Respimat, pending her follow up in the pulmonary clinic. 2. Chronic hypoxemic respiratory failure The patient has a 3 L/min baseline supplemental oxygen requirement and is currently maintaining appropriate saturations on the aforementioned flow rate. I would recommend that a walking oximetry study be performed prior to consideration for discharge home. 3. Obstructive sleep apnea The patient does report a history of sleep apnea with unknown nocturnal PAP pressure settings. For now, the patient will be continued on nocturnal CPAP therapy. We can attempt to obtain her outside sleep study records upon follow-up in the pulmonary medicine clinic. 4. Tobacco dependency I personally spent 5 minutes discussing the deleterious effects of continued tobacco use with the patient, including modalities which could be utilized to achieve a smoke-free lifestyle. Agree with continuing nicotine replacement therapy, while admitted to the hospital. Given the patient's age and smoking history, she would be a candidate for low-dose CT screening of the chest, which can be completed on an ongoing basis 1 year from her recent CAT scan. 5. Morbid obesity/diabetes mellitus/anxiety/GERD Complicates care, management, recovery and prognosis. Continue home medications as indicated. This note was generated with [employer] dictation software. It may contain incorrect words, spelling, and punctuation that were not noted in checking the note before signing. Code Visit Inpatient E&M: 05277 Init Hosp L3 - Behavior Interventions Behavior Intervention: 07341 Smoking Cessation 3-10 min
[2019-04-07 08:06] LABS: Hemoglobin A1c 6.7 % (4.2-6.3)
--- NOTE | 2019-04-07 08:21 | NURSING ---
Dr. Quijano in with pt at this time for consult.
[2019-04-07] MEDS: guaiFENesin 600 MG Tablet PO ×2 (10:47→21:31)
[2019-04-07] MEDS: Pantoprazole Sodium 40 MG Tablet PO (10:47)
[2019-04-07] MEDS: Venlafaxine XR 75 MG Capsule PO (10:48)
[2019-04-07] MEDS: Nystatin Powder 15gm Bottle 1 APPLIC TOPICAL ×2 (10:48→21:37)
--- NOTE | 2019-04-07 11:00 | CASEMGMT ---
RN CM Face to Face with patient for initial transition planning/care coordination assessment. RN CM introduced self and role at [facility]. Patient lying in bed, alert and oriented. Patient willing to participate in assessment and is able to answer all questions appropriately. Care providers, pharmacy, and demographics verified. Patient wishes to discharge home, denies need for home health at this time. Patient states she has no further needs or concerns at this time. CM to follow for discharge planning needs that may arise. PCP: Yordan Specialists: none [facility]: [facility] Prescription Benefit: yes Living Will/HPOA: none LNOK: Niece Living Arrangements: Patient lives with niece in mobile home with 3 steps to enter home. Transportation: niece DME/HHC: Patient has cane, rollator, cpap, nebulizer, oxygen 3 lpm through [facility] with portability. Patient denying HHC. Has been to [facility] in the past. Patient denied HHC at this time, list provided of HHC if needed in the future. Disposition Plan: Patient to discharge home with family support and follow-up plans in place. Abby VERGARA, RN, CM
[2019-04-07 11:21] LABS: Bedside Glucose 216 mg/dL (70-110)
--- NOTE | 2019-04-07 12:51 | PN_ITS ---
<Chicho Tao - Last Filed: 04/07/19 12:51> Patient Problems: Active and Suspected Problems (Last Updated 04/06/19 @ 21:11 by Jory Raines DO) Failure of outpatient treatment (Acute) Subjective: Pt somewhat lethargic this AM. Non productive cough. Ongoing SOB but improved overnight. Tolerating CPAP at night. No fever/chills. C/o sinus congestion, sore throat, no cough, body aches. Some chest heaviness. No increased LE edema No nausea/vomiting/diarrhea. - Physical Exam Vitals/I&O's: Vital Signs Temp Pulse Resp BP Pulse Ox 98.0 F 101 H 20 H 122/71 H 94 04/07/19 07:45 04/07/19 11:10 04/07/19 11:10 04/07/19 07:45 04/07/19 08:10 Oxygen Flow Rate (L/min) 3 Oxygen Delivery Method Nasal Cannula Weight: 246 lb 0.574 oz Body Mass Index (BMI) 45.2 Intake and Output for Last 24 Hours 04/05/19 04/06/19 04/07/19 23:59 23:59 23:59 Intake Total 922.25 / 922.25 Output Total 950 / 950 Balance -27.75 / -27.75 General: Alert, Oriented x3, Cooperative, Lethargic HEENT: Atraumatic, PERRLA, EOMI, Normocephalic Neck: Supple, No JVD, Negative Carotid Bruits Lungs: Diminished, Wheezes Cardiovascular: Regular rate, No murmurs Abdomen: Bowel Sounds Present, Soft, Non Tender, Obese Extremities: No edema, Capillary Refill Less than 3 Seconds Skin: No rashes, No breakdown Musculoskeletal: No Tenderness to Palpation of Joints or Extremities Neurological: Cranial nerves II-XII grossly intact Psych/Mental Status: Normal Affect, Appropriate, Alert and oriented to time, place, person, mood and affect Microbiology Past 72 Hours 04/07/19 00:30 Sputum, Expectorated/Coughed Gram Stain - Final 04/06/19 16:45 Mucosa - Nose Influenza Types A,B Direct FA (JULIETA) - Final Laboratory Results 04/06/19 16:55: WBC 9.4, RBC 4.35, Hgb 13.1, Hct 40.6, MCV 93.3, MCH 30.1, MCHC 32.3, RDW Std Deviation 48.4 H, RDW Coeff of Da 14.1, Plt Count 215, MPV 10.2, Immature Gran % (Auto) 0.700, Neut % (Auto) 68.9, Lymph % (Auto) 21.2, [place] % (Auto) 7.9, Eos % (Auto) 1.0, Baso % (Auto) 0.3, Absolute Neuts (auto) 6.5, Absolute Lymphs (auto) 1.99, Nucleated RBC % 0 04/06/19 16:55: Sodium 134 L, Potassium 4.3, Chloride 100, Carbon Dioxide 29.0, Anion Gap 5, BUN 9, Creatinine 0.80, Estim Creat Clear Calc 60.62, Est GFR (MDRD) Af Amer 94, Est GFR (MDRD) Non-Af 78, BUN/Creatinine Ratio 11.2, Glucose 125 H, Calcium 9.1, Troponin I < 0.015 04/06/19 16:55: B-Natriuretic Peptide 20.0 04/06/19 23:04: POC Glucose 290 H 04/07/19 05:35: Hemoglobin A1c 6.7 H 04/07/19 05:35: WBC 7.7, RBC 4.24, Hgb 12.4, Hct 39.4, MCV 92.9, MCH 29.2, MCHC 31.5 L, RDW Std Deviation 47.0 H, RDW Coeff of Da 13.8, Plt Count 227, MPV 10.0, Immature Gran % (Auto) 1.000 H, Neut % (Auto) 87.2 H, Lymph % (Auto) 10.1 L, [place] % (Auto) 1.4, Eos % (Auto) 0.0, Baso % (Auto) 0.3, Absolute Neuts (auto) 6.7, Absolute Lymphs (auto) 0.77 L, Nucleated RBC % 0 04/07/19 05:35: Sodium 134 L, Potassium 4.7, Chloride 98, Carbon Dioxide 29.0, Anion Gap 7, BUN 12, Creatinine 0.99, Estim Creat Clear Calc 48.99, Est GFR (MDRD) Af Amer 74, Est GFR (MDRD) Non-Af 61, BUN/Creatinine Ratio 12.1, Glucose 237 H, Calcium 8.8, Phosphorus 3.4, Magnesium 2.0, Total Bilirubin 0.20, AST 5 L , ALT 13, Alkaline Phosphatase 53, Total Protein 7.2, Albumin 3.2, Globulin 4.0, Albumin/Globulin Ratio 0.8 L, TSH 0.81 04/07/19 06:52: POC Glucose 240 H 04/07/19 11:14: POC Glucose 216 H Current Medications Albuterol/Ipratropium (Duoneb) 3 ml INHALATION Q4H.RT [facility] Last Admin: 04/07/19 11:10 Dose: 3 ml Documented by: Dextrose (D50w Syringe) 0 gm IV X1 PRN; Protocol PRN Reason: Hypoglycemia Glucagon () 1 mg IM .X1 PRN PRN Reason: Hypoglycemia Guaifenesin (Mucinex) 600 mg PO BID [facility] Last Admin: 04/07/19 10:47 Dose: 600 mg Documented by: Heparin Sodium (Porcine) (Heparin Na) 5,000 unit SC Q8 [facility] Last Admin: 04/07/19 06:12 Dose: 5,000 unit Documented by: Azithromycin 500 mg/ Dextrose 255 mls @ 250 mls/hr IV Q24@2200 [facility] Stop: 04/08/19 23:02 Last Infusion: 04/07/19 00:13 Dose: Infused Documented by: Piperacillin Sod/Tazobactam (Sod 3.375 gm/ Sodium Chloride) 50 mls @ 12.5 mls/hr IV Q8 [facility] Last Infusion: 04/07/19 10:13 Dose: Infused Documented by: Sodium Chloride () 250 mls @ 15 mls/hr IV .[id number] PRN PRN Reason: Saline Flush Last Infusion: 04/07/19 00:40 Dose: 0 mls/hr Documented by: Insulin Glargine (Lantus (Bkc)) 60 units SC QHS [facility] Last Admin: 04/06/19 23:08 Dose: 60 u Documented by: Insulin Human Lispro (Humalog Kwikpen (Bkc)) 0 unit SC TIDAC [facility]; Protocol Last Admin: 04/07/19 12:06 Dose: 2 u Documented by: Lorazepam (Ativan) 0.5 mg PO Q12H PRN PRN PRN Reason: ANXIETY Magnesium Hydroxide (Milk Of Magnesia) 30 ml PO DAILY PRN PRN PRN Reason: Constipation Melatonin (Melatonin) 3 mg PO QHS PRN PRN PRN Reason: INSOMNIA Methylprednisolone (Solu-Medrol) 60 mg IV Q6 [facility] Last Admin: 04/07/19 12:07 Dose: 60 mg Documented by: Nicotine (Nicoderm Cq (Pbkc)) 14 mg TRANSDERM. DAILY [facility] Last Admin: 04/07/19 10:48 Dose: Not Given Documented by: Nystatin (Mycostatin Powder) 1 applic TOPICAL BID [facility]; Protocol Last Admin: 04/07/19 10:48 Dose: 1 applicatio Documented by: Pantoprazole Sodium (Protonix) 40 mg PO DAILY [facility] Last Admin: 04/07/19 10:47 Dose: 40 mg Documented by: Pregabalin (Lyrica) 100 mg PO TID [facility] Last Admin: 04/07/19 06:12 Dose: 100 mg Documented by: Quetiapine Fumarate (Seroquel) 12.5 mg PO QHS [facility] Last Admin: 04/06/19 23:08 Dose: 12.5 mg Documented by: Sodium Chloride () 10 - 40 ml IV UD PRN PRN Reason: SALINE FLUSH Sucralfate (Carafate) 1 gm PO BID@0700,1600 [facility] Last Admin: 04/07/19 06:53 Dose: 1 gm Documented by: Trazodone HCl (Desyrel) 100 mg PO QHS [facility] Last Admin: 04/06/19 23:08 Dose: 100 mg Documented by: Venlafaxine HCl (Effexor Xr) 75 mg PO DAILY [facility] Last Admin: 04/07/19 10:48 Dose: 75 mg Documented by: Medical Necessity - Tobacco Use Smoking Status: Current every day smoker Tobacco Use: Cigarettes Assessment/Plan All Active Problems (Last Updated 04/06/19 @ 21:11 by Jory Raines DO) Failure of outpatient treatment (Acute) 1. Acute COPD exacerbation with chronic hypoxic resp failure - stable at baseline. Still SOB and very wheezy. Continue steroids, duonebs, antibiotics (azithro/zosyn). No fever/leukocytosis. Negative BNP. Resp panel negative. Sputum culture pending. Flu screen negative. -CXR negative, CT chest with atelectasis/scarring. 2. ISABELL - CPAP qhs and with naps. 3. DMt2 with morbid obesity - SSI and lantus daily. [employer] consult 4. Bipolar disorder - seroquel, trazodone, effexor, ativan, melatonin. Multiple sedating meds if lethargy does not improve adjustments may be necessary. 5. Peripheral neuropathy - lyrica, contributing to multiple sedating meds. 6. Ongoing nicotine abuse - needs complete cessation. Continue patch. DVT ppx: heparin DC planning: anticipate no needs at dc, already has o2. This patient was seen by Chicho Tao PA-C under the supervision of Doctor Yee. <Berkley Fraire - Last Filed: 04/07/19 15:54> - Physical Exam Vitals/I&O's: Vital Signs Temp Pulse Resp BP Pulse Ox 98.0 F 79 20 H 143/72 H 94 04/07/19 14:00 04/07/19 14:55 04/07/19 14:55 04/07/19 14:00 04/07/19 14:28 Oxygen Flow Rate (L/min) 3 Oxygen Delivery Method Nasal Cannula Weight: 246 lb 0.574 oz Body Mass Index (BMI) 45.2 Intake and Output for Last 24 Hours 04/05/19 04/06/19 04/07/19 23:59 23:59 23:59 Intake Total 1162.25 / 1162.25 Output Total 950 / 950 Balance 212.25 / 212.25 Microbiology Past 72 Hours 04/07/19 08:10 Mucosa - Other Respiratory Panel (PCR) - Final Rhinovirus 04/07/19 00:30 Sputum, Expectorated/Coughed Gram Stain - Final 04/06/19 16:45 Mucosa - Nose Influenza Types A,B Direct FA (JULIETA) - Final Laboratory Results 04/06/19 16:55: WBC 9.4, RBC 4.35, Hgb 13.1, Hct 40.6, MCV 93.3, MCH 30.1, MCHC 32.3, RDW Std Deviation 48.4 H, RDW Coeff of Da 14.1, Plt Count 215, MPV 10.2, Immature Gran % (Auto) 0.700, Neut % (Auto) 68.9, Lymph % (Auto) 21.2, [place] % (Auto) 7.9, Eos % (Auto) 1.0, Baso % (Auto) 0.3, Absolute Neuts (auto) 6.5, Absolute Lymphs (auto) 1.99, Nucleated RBC % 0 04/06/19 16:55: Sodium 134 L, Potassium 4.3, Chloride 100, Carbon Dioxide 29.0, Anion Gap 5, BUN 9, Creatinine 0.80, Estim Creat Clear Calc 60.62, Est GFR (MDRD) Af Amer 94, Est GFR (MDRD) Non-Af 78, BUN/Creatinine Ratio 11.2, Glucose 125 H, Calcium 9.1, Troponin I < 0.015 04/06/19 16:55: B-Natriuretic Peptide 20.0 04/06/19 23:04: POC Glucose 290 H 04/07/19 05:35: Hemoglobin A1c 6.7 H 04/07/19 05:35: WBC 7.7, RBC 4.24, Hgb 12.4, Hct 39.4, MCV 92.9, MCH 29.2, MCHC 31.5 L, RDW Std Deviation 47.0 H, RDW Coeff of Da 13.8, Plt Count 227, MPV 10.0, Immature Gran % (Auto) 1.000 H, Neut % (Auto) 87.2 H, Lymph % (Auto) 10.1 L, [place] % (Auto) 1.4, Eos % (Auto) 0.0, Baso % (Auto) 0.3, Absolute Neuts (auto) 6.7, Absolute Lymphs (auto) 0.77 L, Nucleated RBC % 0 04/07/19 05:35: Sodium 134 L, Potassium 4.7, Chloride 98, Carbon Dioxide 29.0, Anion Gap 7, BUN 12, Creatinine 0.99, Estim Creat Clear Calc 48.99, Est GFR (MDRD) Af Amer 74, Est GFR (MDRD) Non-Af 61, BUN/Creatinine Ratio 12.1, Glucose 237 H, Calcium 8.8, Phosphorus 3.4, Magnesium 2.0, Total Bilirubin 0.20, AST 5 L , ALT 13, Alkaline Phosphatase 53, Total Protein 7.2, Albumin 3.2, Globulin 4.0, Albumin/Globulin Ratio 0.8 L, TSH 0.81 04/07/19 06:52: POC Glucose 240 H 04/07/19 11:14: POC Glucose 216 H Current Medications Albuterol/Ipratropium (Duoneb) 3 ml INHALATION Q4H.RT [facility] Last Admin: 04/07/19 14:55 Dose: 3 ml Documented by: Dextrose (D50w Syringe) 0 gm IV X1 PRN; Protocol PRN Reason: Hypoglycemia Glucagon () 1 mg IM .X1 PRN PRN Reason: Hypoglycemia Guaifenesin (Mucinex) 600 mg PO BID [facility] Last Admin: 04/07/19 10:47 Dose: 600 mg Documented by: Heparin Sodium (Porcine) (Heparin Na) 5,000 unit SC Q8 [facility] Last Admin: 04/07/19 14:12 Dose: 5,000 unit Documented by: Azithromycin 500 mg/ Dextrose 255 mls @ 250 mls/hr IV Q24@2200 [facility] Stop: 04/08/19 23:02 Last Infusion: 04/07/19 00:13 Dose: Infused Documented by: Piperacillin Sod/Tazobactam (Sod 3.375 gm/ Sodium Chloride) 50 mls @ 12.5 mls/hr IV Q8 [facility] Last Admin: 04/07/19 14:11 Dose: 12.5 mls/hr Documented by: Sodium Chloride () 250 mls @ 15 mls/hr IV .[id number] PRN PRN Reason: Saline Flush Last Infusion: 04/07/19 00:40 Dose: 0 mls/hr Documented by: Insulin Glargine (Lantus (Bkc)) 60 units SC QHS [facility] Last Admin: 04/06/19 23:08 Dose: 60 u Documented by: Insulin Human Lispro (Humalog Kwikpen (Bkc)) 0 unit SC TIDAC [facility]; Protocol Last Admin: 04/07/19 12:06 Dose: 2 u Documented by: Lorazepam (Ativan) 0.5 mg PO Q12H PRN PRN PRN Reason: ANXIETY Magnesium Hydroxide (Milk Of Magnesia) 30 ml PO DAILY PRN PRN PRN Reason: Constipation Melatonin (Melatonin) 3 mg PO QHS PRN PRN PRN Reason: INSOMNIA Methylprednisolone (Solu-Medrol) 60 mg IV Q6 [facility] Last Admin: 04/07/19 12:07 Dose: 60 mg Documented by: Nicotine (Nicoderm Cq (Pbkc)) 14 mg TRANSDERM. DAILY [facility] Last Admin: 04/07/19 10:48 Dose: Not Given Documented by: Nystatin (Mycostatin Powder) 1 applic TOPICAL BID [facility]; Protocol Last Admin: 04/07/19 10:48 Dose: 1 applicatio Documented by: Pantoprazole Sodium (Protonix) 40 mg PO DAILY [facility] Last Admin: 04/07/19 10:47 Dose: 40 mg Documented by: Pregabalin (Lyrica) 100 mg PO TID [facility] Last Admin: 04/07/19 14:11 Dose: 100 mg Documented by: Quetiapine Fumarate (Seroquel) 12.5 mg PO QHS [facility] Last Admin: 04/06/19 23:08 Dose: 12.5 mg Documented by: Sodium Chloride () 10 - 40 ml IV UD PRN PRN Reason: SALINE FLUSH Sucralfate (Carafate) 1 gm PO BID@0700,1600 [facility] Last Admin: 04/07/19 06:53 Dose: 1 gm Documented by: Trazodone HCl (Desyrel) 100 mg PO QHS [facility] Last Admin: 04/06/19 23:08 Dose: 100 mg Documented by: Venlafaxine HCl (Effexor Xr) 75 mg PO DAILY [facility] Last Admin: 04/07/19 10:48 Dose: 75 mg Documented by: Assessment/Plan Patient seen by Chicho Tao PA-C under my supervision Patient seen and examined. She was admitted with complaint of shortness of breath and is being managed for acute exacerbation of COPD. Patient still complained of shortness of breath which he said was much better than when she came in. She admitted to a cough but denied any fever chills or palpitations. Review of systems otherwise negative. Labs and vitals reviewed. o/e: Vital Signs Height 5 ft 2 in Weight: 246 lb 0.574 oz Weight in Pounds 246.0 lbs Pulse Ox 94 Temperature 98.0 F Pulse Rate 79 Respiratory Rate 20 Blood Pressure 143/72 Blood Pressure Position Semi-Fowlers General: Alert, Oriented x3, Cooperative, Lethargic HEENT: Atraumatic, PERRLA, EOMI, Normocephalic Neck: Supple, No JVD, Negative Carotid Bruits Lungs: decreased breath sounds bibasally, coarse crackles and rhonchi bilaterally. On 3L of oxygen Cardiovascular: Regular rate, No murmurs Abdomen: Bowel Sounds Present, Soft, Non Tender, Obese Extremities: No edema, Capillary Refill Less than 3 Seconds Skin: No rashes, No breakdown Musculoskeletal: No Tenderness to Palpation of Joints or Extremities Neurological: Cranial nerves II-XII grossly intact Psych/Mental Status: Normal Affect, Appropriate, Alert and oriented to time, place, person, mood and affect Plan is to continue breathing treatments, and steroids. Currently on Zosyn and azithromycin. Pulmonology on board. Titrate oxygen to maintain saturation above 90%. Respiratory panel was positive for rhinovirus. Sputum Gram stain showed 4+ white cells cultures pending. Continue CPAP nightly for sleep apnea. Counseled on quitting using alcohol. Per pulmonology, she would benefit from initiation of maintenance inhaler regimen and can be placed on a combination of LABA/LAMA. Will need follow-up in pulmonology clinic. Rest of management as per Chicho Tao PA-C's note, which I have reviewed and endorsed. Code Visit Inpatient E&M: 19871 Subs Hosp L3
[2019-04-07 16:25] LABS: Bedside Glucose 289 mg/dL (70-110)
[2019-04-07 21:31] LABS: Bedside Glucose 392 mg/dL (70-110)
[2019-04-07] MEDS: Acetaminophen 325 MG Tablet 650 MG PO (21:31)
[2019-04-07] MEDS: QUEtiapine 25 MG Tablet 12.5 MG PO (21:32)
[2019-04-07] MEDS: traZODone 100 MG Tablet PO (21:32)
[2019-04-08] VITALS (8 sets, daily range): BP systolic 149–154; BP diastolic 57–100; PULSE 76–88; RESP 18–20; TEMP 36.6–36.7; O2SAT 89–94
[2019-04-08] MEDS: MethylPREDNISolone 125 MG/2 ML Vial 60 MG IV ×2 (00:03→06:08)
[2019-04-08] MEDS: Heparin Injection (Vial) 5,000 UNIT/ML VIAL 5000 UNIT SC (06:08)
[2019-04-08] MEDS: Pregabalin 50 MG Capsule 100 MG PO (06:09)
[2019-04-08] MEDS: Sucralfate 1 GM Tablet PO (06:10)
[2019-04-08] MEDS: Insulin Lispro 100 UNIT/ML INSULN.PEN SC (06:17)
[2019-04-08 06:23] LABS: Anion Gap 5 (5-15); BUN 25 mg/dL (7-18); BUN/Creat Ratio 25.4 RATIO (10-20); Calcium,Total 9.2 mg/dL (8.5-10.1); Chloride 99 mmol/L (98-107); Creatinine, Serum 0.99 mg/dL (0.55-1.02); EST Glomerular Filtration Rate 62 mL/min (>60); Est Glom Filt Rate - Afr Amer 74 mL/min (>60); Estimated Creatinine Clearance 48.99 ml/min; Glucose 328 mg/dL (74-106); Potassium 4.8 mmol/L (3.5-5.1); Sodium Level 133 mmol/L (136-145)
[2019-04-08 06:31] LABS: Bedside Glucose 324 mg/dL (70-110)
--- NOTE | 2019-04-08 07:07 | PN_ITS ---
Subjective: The patient was seen and examined at the bedside this morning. Events from the last 24 hours have been reviewed. The patient is currently afebrile, hemodynamically stable and maintaining appropriate oxygen saturations on 3 L/min. The patient does report interval improvement in her perceived dyspnea over the last 24 hours. Objective: The patient's most recent lab work, culture data and imaging studies have all been personally reviewed. Respiratory viral panel was positive for rhinovirus. Sputum culture is currently pending. - Physical Exam Vitals/I&O's: Vital Signs Temp Pulse Resp BP Pulse Ox 97.9 F 83 18 154/100 H 92 04/08/19 04:00 04/08/19 04:00 04/08/19 04:00 04/08/19 04:00 04/08/19 04:00 Oxygen Flow Rate (L/min) 3 Oxygen Delivery Method Bi-pap Weight: 246 lb 4.101 oz Body Mass Index (BMI) 45.2 Intake and Output for Last 24 Hours 04/06/19 04/07/19 04/08/19 23:59 23:59 23:59 Intake Total 1817.25 / 2117.25 690 / 690 Output Total 1250 / 1550 600 / 600 Balance 567.25 / 567.25 90 / 90 General: Alert, Cooperative, No apparent distress HEENT: Atraumatic, PERRLA, Normocephalic Oral: No Gingival or Mucosal Lesions/ Ulcerations Neck: Supple, No Nodes, Trachea Midline Lungs: No rhonchi, No wheeze, No rales, Diminished Cardiovascular: Regular rate, Regular Rhythm, Normal S1, Normal S2 Abdomen: Bowel Sounds Present, Soft, Non Tender, Obese Extremities: No clubbing, No cyanosis, No edema Skin: No breakdown Musculoskeletal: No Tenderness to Palpation of Joints or Extremities, No Muscle Wasting Lymphatic: No Cervical, Supraclavicular, or Inguinal Adenopathy Neurological: Cranial nerves II-XII grossly intact, Neuro grossly intact Psych/Mental Status: Normal Affect, Appropriate Labs (Last 48 Hours) 04/06/19 04/06/19 04/06/19 16:55 16:55 16:55 WBC 9.4 RBC 4.35 Hgb 13.1 Hct 40.6 MCV 93.3 MCH 30.1 MCHC 32.3 RDW Std Deviation 48.4 H RDW Coeff of Da 14.1 Plt Count 215 MPV 10.2 Immature Gran % (Auto) 0.700 Neut % (Auto) 68.9 Lymph % (Auto) 21.2 Crosby % (Auto) 7.9 Eos % (Auto) 1.0 Baso % (Auto) 0.3 Absolute Neuts (auto) 6.5 Absolute Lymphs (auto) 1.99 Nucleated RBC % 0 Sodium 134 L Potassium 4.3 Chloride 100 Carbon Dioxide 29.0 Anion Gap 5 BUN 9 Creatinine 0.80 Estim Creat Clear Calc 60.62 Est GFR (MDRD) Af Amer 94 Est GFR (MDRD) Non-Af 78 BUN/Creatinine Ratio 11.2 Glucose 125 H Hemoglobin A1c Calcium 9.1 Phosphorus Magnesium Total Bilirubin AST ALT Alkaline Phosphatase Troponin I < 0.015 B-Natriuretic Peptide 20.0 Total Protein Albumin Globulin Albumin/Globulin Ratio TSH POC Glucose 04/06/19 04/07/19 04/07/19 23:04 05:35 05:35 WBC 7.7 RBC 4.24 Hgb 12.4 Hct 39.4 MCV 92.9 MCH 29.2 MCHC 31.5 L RDW Std Deviation 47.0 H RDW Coeff of Da 13.8 Plt Count 227 MPV 10.0 Immature Gran % (Auto) 1.000 H Neut % (Auto) 87.2 H Lymph % (Auto) 10.1 L Crosby % (Auto) 1.4 Eos % (Auto) 0.0 Baso % (Auto) 0.3 Absolute Neuts (auto) 6.7 Absolute Lymphs (auto) 0.77 L Nucleated RBC % 0 Sodium Potassium Chloride Carbon Dioxide Anion Gap BUN Creatinine Estim Creat Clear Calc Est GFR (MDRD) Af Amer Est GFR (MDRD) Non-Af BUN/Creatinine Ratio Glucose Hemoglobin A1c 6.7 H Calcium Phosphorus Magnesium Total Bilirubin AST ALT Alkaline Phosphatase Troponin I B-Natriuretic Peptide Total Protein Albumin Globulin Albumin/Globulin Ratio TSH POC Glucose 290 H 04/07/19 04/07/19 04/07/19 05:35 06:52 11:14 WBC RBC Hgb Hct MCV MCH MCHC RDW Std Deviation RDW Coeff of Da Plt Count MPV Immature Gran % (Auto) Neut % (Auto) Lymph % (Auto) Crosby % (Auto) Eos % (Auto) Baso % (Auto) Absolute Neuts (auto) Absolute Lymphs (auto) Nucleated RBC % Sodium 134 L Potassium 4.7 Chloride 98 Carbon Dioxide 29.0 Anion Gap 7 BUN 12 Creatinine 0.99 Estim Creat Clear Calc 48.99 Est GFR (MDRD) Af Amer 74 Est GFR (MDRD) Non-Af 61 BUN/Creatinine Ratio 12.1 Glucose 237 H Hemoglobin A1c Calcium 8.8 Phosphorus 3.4 Magnesium 2.0 Total Bilirubin 0.20 AST 5 L ALT 13 Alkaline Phosphatase 53 Troponin I B-Natriuretic Peptide Total Protein 7.2 Albumin 3.2 Globulin 4.0 Albumin/Globulin Ratio 0.8 L TSH 0.81 POC Glucose 240 H 216 H 04/07/19 04/07/19 04/08/19 16:18 21:25 05:45 WBC RBC Hgb Hct MCV MCH MCHC RDW Std Deviation RDW Coeff of Da Plt Count MPV Immature Gran % (Auto) Neut % (Auto) Lymph % (Auto) Crosby % (Auto) Eos % (Auto) Baso % (Auto) Absolute Neuts (auto) Absolute Lymphs (auto) Nucleated RBC % Sodium 133 L Potassium 4.8 Chloride 99 Carbon Dioxide 29.0 Anion Gap 5 BUN 25 H Creatinine 0.99 Estim Creat Clear Calc 48.99 Est GFR (MDRD) Af Amer 74 Est GFR (MDRD) Non-Af 62 BUN/Creatinine Ratio 25.4 H Glucose 328 H Hemoglobin A1c Calcium 9.2 Phosphorus Magnesium Total Bilirubin AST ALT Alkaline Phosphatase Troponin I B-Natriuretic Peptide Total Protein Albumin Globulin Albumin/Globulin Ratio TSH POC Glucose 289 H 392 H 04/08/19 06:16 WBC RBC Hgb Hct MCV MCH MCHC RDW Std Deviation RDW Coeff of Da Plt Count MPV Immature Gran % (Auto) Neut % (Auto) Lymph % (Auto) Crosby % (Auto) Eos % (Auto) Baso % (Auto) Absolute Neuts (auto) Absolute Lymphs (auto) Nucleated RBC % Sodium Potassium Chloride Carbon Dioxide Anion Gap BUN Creatinine Estim Creat Clear Calc Est GFR (MDRD) Af Amer Est GFR (MDRD) Non-Af BUN/Creatinine Ratio Glucose Hemoglobin A1c Calcium Phosphorus Magnesium Total Bilirubin AST ALT Alkaline Phosphatase Troponin I B-Natriuretic Peptide Total Protein Albumin Globulin Albumin/Globulin Ratio TSH POC Glucose 324 H Microbiology 04/07/19 08:10 Mucosa - Other Respiratory Panel (PCR) - Final Rhinovirus 04/07/19 00:30 Sputum, Expectorated/Coughed Gram Stain - Final 04/06/19 16:45 Mucosa - Nose Influenza Types A,B Direct FA (JULIETA) - Final Clinical Impression(s) from Imaging Studies Chest X-Ray 04/06/19 17:05 IMPRESSION: No acute thoracic pathology. Electronically Signed: Jake Montserrat, at 17:34 EST Tel , Service support , Chest CT 04/07/19 00:01 IMPRESSION: Mild linear basilar subsegmental atelectasis versus scarring. Individualized dose optimization techniques were used for this CT. at 0101 Reported and signed by: Kori Stapleton MD Electronically Signed: Kori Stapleton MD at 1:01 EST Tel , Service support , Current Medications Acetaminophen (Tylenol) 650 mg PO Q6H PRN PRN PRN Reason: Non-cardiac pain (mod-severe) Last Admin: 04/07/19 21:31 Dose: 650 mg Documented by: Albuterol/Ipratropium (Duoneb) 3 ml INHALATION Q4H.RT [facility] Last Admin: 04/08/19 03:00 Dose: Not Given Documented by: Dextrose (D50w Syringe) 0 gm IV X1 PRN; Protocol PRN Reason: Hypoglycemia Glucagon () 1 mg IM .X1 PRN PRN Reason: Hypoglycemia Guaifenesin (Mucinex) 600 mg PO BID [facility] Last Admin: 04/07/19 21:31 Dose: 600 mg Documented by: Heparin Sodium (Porcine) (Heparin Na) 5,000 unit SC Q8 [facility] Last Admin: 04/08/19 06:08 Dose: 5,000 unit Documented by: Azithromycin 500 mg/ Dextrose 255 mls @ 250 mls/hr IV Q24@2200 [facility] Stop: 04/08/19 23:02 Last Infusion: 04/07/19 23:03 Dose: Infused Documented by: Piperacillin Sod/Tazobactam (Sod 3.375 gm/ Sodium Chloride) 50 mls @ 12.5 mls/hr IV Q8 [facility] Last Admin: 04/08/19 06:09 Dose: 12.5 mls/hr Documented by: Sodium Chloride () 250 mls @ 15 mls/hr IV .[id number] PRN PRN Reason: Saline Flush Last Infusion: 04/07/19 00:40 Dose: 0 mls/hr Documented by: Insulin Glargine (Lantus (Bkc)) 60 units SC QHS [facility] Last Admin: 04/07/19 21:32 Dose: 60 u Documented by: Insulin Human Lispro (Humalog Kwikpen (Bkc)) 0 unit SC TIDAC [facility]; Protocol Last Admin: 04/08/19 06:17 Dose: 5 u Documented by: Lorazepam (Ativan) 0.5 mg PO Q12H PRN PRN PRN Reason: ANXIETY Magnesium Hydroxide (Milk Of Magnesia) 30 ml PO DAILY PRN PRN PRN Reason: Constipation Melatonin (Melatonin) 3 mg PO QHS PRN PRN PRN Reason: INSOMNIA Methylprednisolone (Solu-Medrol) 60 mg IV Q6 [facility] Last Admin: 04/08/19 06:08 Dose: 60 mg Documented by: Nicotine (Nicoderm Cq (Pb)) 14 mg TRANSDERM. DAILY [facility] Last Admin: 04/07/19 10:48 Dose: Not Given Documented by: Nystatin (Mycostatin Powder) 1 applic TOPICAL BID [facility]; Protocol Last Admin: 04/07/19 21:37 Dose: 1 applicatio Documented by: Pantoprazole Sodium (Protonix) 40 mg PO DAILY [facility] Last Admin: 04/07/19 10:47 Dose: 40 mg Documented by: Pregabalin (Lyrica) 100 mg PO TID [facility] Last Admin: 04/08/19 06:09 Dose: 100 mg Documented by: Quetiapine Fumarate (Seroquel) 12.5 mg PO QHS [facility] Last Admin: 04/07/19 21:32 Dose: 12.5 mg Documented by: Sodium Chloride () 10 - 40 ml IV UD PRN PRN Reason: SALINE FLUSH Sodium Chloride () 10 - 40 ml IV UD PRN PRN Reason: SALINE FLUSH Sucralfate (Carafate) 1 gm PO BID@0700,1600 [facility] Last Admin: 04/08/19 06:10 Dose: 1 gm Documented by: Trazodone HCl (Desyrel) 100 mg PO QHS [facility] Last Admin: 04/07/19 21:32 Dose: 100 mg Documented by: Venlafaxine HCl (Effexor Xr) 75 mg PO DAILY [facility] Last Admin: 04/07/19 10:48 Dose: 75 mg Documented by: Medical Necessity - Tobacco Use Smoking Status: Current every day smoker Tobacco Use: Cigarettes Assessment/Plan All Active Problems (Last Updated 04/06/19 @ 21:11 by Jory Raines DO) Failure of outpatient treatment (Acute) RECOMMENDATIONS: 1. Continue bronchodilators and steroids. Plan for prednisone taper at discharge. 2. Discontinue antimicrobials. 3. Perform walking oximetry study prior to consideration for discharge home. 4. Outpatient pulmonary follow-up in 2 weeks is warranted. 5. Continue nocturnal Pap therapy. 6. Continue nicotine replacement therapy. IMPRESSIONS: 1. COPD with exacerbation secondary to rhinovirus infection The patient presented to the hospital with complaints of shortness of breath. She appears to be maintaining appropriate oxygen saturations on her baseline 3 L/min requirement. 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 Strangely, however, the patient is only prescribed Ventolin on an as-needed basis in her home environment. She is not currently on any maintenance inhalers. Neither the patient's chest x-ray or CT chest revealed evidence of pneumonia. She was positive, nonetheless, for rhinovirus. Therefore, antimicrobials can be discontinued from my perspective. Recommend continuing scheduled bronchodilators and steroids. The patient should be placed on a prednisone taper at discharge. I would recommend outpatient pulmonary follow-up within 2 weeks so that baseline PFTs can be obtained. In addition, I do find it strange that the patient is currently only prescribed Ventolin on an as-needed basis in her home environment, despite having a known history of COPD. She would likely benefit from the initiation of a maintenance inhaler regimen and can likely be placed on a combination LABA/LAMA, like Anoro or Stiolto Respimat, pending her follow up in the pulmonary clinic. 2. Chronic hypoxemic respiratory failure The patient has a 3 L/min baseline supplemental oxygen requirement and is currently maintaining appropriate saturations on the aforementioned flow rate. I would recommend that a walking oximetry study be performed prior to c onsideration for discharge home. 3. Obstructive sleep apnea The patient does report a history of sleep apnea with unknown nocturnal PAP pressure settings. For now, the patient will be continued on nocturnal CPAP therapy. We can attempt to obtain her outside sleep study records upon follow- up in the pulmonary medicine clinic. 4. Tobacco dependency Agree with continuing nicotine replacement therapy, while admitted to the hospital. Given the patient's age and smoking history, she would be a candidate for low-dose CT screening of the chest, which can be completed on an ongoing basis 1 year from her recent CAT scan. 5. Morbid obesity/diabetes mellitus/anxiety/GERD Complicates care, management, recovery and prognosis. Continue home medications as indicated. This note was generated with [employer] dictation software. It may contain incorrect words, spelling, and punctuation that were not noted in checking the note before signing. Code Visit Inpatient E&M: 67481 Subs Hosp L2
[2019-04-08] MEDS: Ipratropium/Albuterol Sulfate 3 ML AMPUL.NEB INHALATION (07:20)
[2019-04-08] MEDS: Venlafaxine XR 75 MG Capsule PO (09:53)
[2019-04-08] MEDS: Nystatin Powder 15gm Bottle 1 APPLIC TOPICAL (09:53)
[2019-04-08] MEDS: Pantoprazole Sodium 40 MG Tablet PO (09:53)
[2019-04-08] MEDS: guaiFENesin 600 MG Tablet PO (09:53)
--- NOTE | 2019-04-08 10:32 | PCM.DC ---
- Discharge Diagnoses Current Active Problems: Current Active and Chronic Problems (Last Updated 04/06/19 @ 21:11 by Jory Raines DO) COPD exacerbation (Chronic) Failure of outpatient treatment (Acute) You will use the following diet at home:: Calorie/Carbohydrate Controlled (specify 1200, 1400, etc) - 1800 lexis / day, Cardiac Your food should be the consistency of: Regular Your liquids should be the consistency of: Regular/Thin Discharge Activity: Return to Normal Activity Allergies/Adverse Reactions: Allergies cephalexin [From Keflex] Allergy (Verified 04/06/19 15:47) Angioedema ciprofloxacin [From Cipro] Allergy (Verified 04/06/19 15:47) Angioedema sulfamethoxazole [From Bactrim] Allergy (Verified 04/06/19 15:47) Angioedema trimethoprim [From Bactrim] Allergy (Verified 04/06/19 15:47) Angioedema bees Adverse Reaction (Uncoded 04/06/19 20:14) Hives seafood Adverse Reaction (Uncoded 04/06/19 20:14) Hives Medications to take at Discharge Colestipol HCl 1 gm PO DAILY 04/06/19 Divalproex Ec 500 mg PO BID 04/06/19 Ibuprofen 600 mg PO TID 04/06/19 Insulin Glargine,Hum.rec.anlog [Basaglar Kwikpen U-100] 60 unit SQ QHS 04/06/19 Insulin Regular, Human [Novolin R] 0 unit SUBCUT ACHS 04/06/19 Lorazepam 0.5 mg PO BID PRN PRN 04/06/19 Metformin HCl 500 mg PO BID 04/06/19 Pantoprazole Sodium [Protonix] 40 mg PO DAILY 04/06/19 Potassium Chloride [K-Dur] 30 meq PO BID 04/06/19 Pregabalin 100 mg PO TID 04/06/19 Quetiapine Fumarate [Seroquel] 12.5 mg PO DAILY 04/06/19 Sucralfate [Carafate] 1 gm PO BID 04/06/19 Venlafaxine HCl [Venlafaxine HCl ER] 75 mg PO DAILY 04/06/19 traZODone [Desyrel] 100 mg PO QHS 04/06/19 Guaifenesin [Mucinex] 600 mg PO BID tablet 04/08/19 Prednisone 10 mg PO UD #30 tab 04/08/19 Umeclidinium Brm/Vilanterol Tr [Anoro Ellipta 62.5-25 Mcg INH] 1 puff IH DAILY #1 blst.w.dev 04/08/19 The following prescriptions were given: Umeclidinium Brm/Vilanterol Tr [Anoro Ellipta 62.5-25 Mcg INH] 1 puff IH DAILY #1 blst.w.dev Transmission Status: Pending to [facility] Prednisone 10 mg PO UD #30 tab Transmission Status: Pending to [facility] Primary Care Physician: DOMINIQUE GEORGE [Other] Please follow up with your Primary Care Physician in: 1-2 weeks Test Results: Test results from this visit will be discussed in further detail at your follow-up appointment, if applicable. Please Follow Up With: Maren Ponce NP-C When: 2 weeks Proposed Discharge Date: 04/08/19
--- NOTE | 2019-04-08 14:28 | PCM.DC.SUM ---
<Chicho Tao - Last Filed: 04/08/19 14:28> Discharge Date and Diagnosis Date of Admission: 04/06/19 Date of Discharge: 04/08/19 - Primary Discharge Diagnosis COPD exacerbation secondary to acute rhinovirus bronchitis Chronic hypoxic respiratory failure secondary to COPD Ongoing nicotine abuse Obstructive sleep apnea Type 2 diabetes with morbid obesity Bipolar disorder Peripheral neuropathy - Secondary Discharge Diagnosis Chronic Problems (Last Updated 04/06/19 @ 21:11 by Jory Raines DO) COPD exacerbation (Chronic) Hospital Course and Treatment Imaging Results: RAD/Chest PA and Lateral IMPRESSION: No acute thoracic pathology. CT/Chest without Contrast IMPRESSION: Mild linear basilar subsegmental atelectasis versus scarring. Individualized dose optimization techniques were used for this CT. Consultations: PulmonologyAnthony Operations: None Procedures: None Summary of Care Provided: Hospital Course: The patient is a 59 year old F past medical history of COPD with chronic hypoxic respiratory failure uses 3 L of oxygen at baseline, obstructive sleep apnea compliant with CPAP nightly at home, ongoing nicotine abuse, type 2 diabetes with morbid obesity, peripheral neuropathy, bipolar disorder, who presented to the emergency room with complaints of increased shortness of breath. She had failed outpatient prednisone however she was still very wheezy and still smoking about half pack per day. She is 90% on her home oxygen level in the emergency room. She her chest x-ray was unremarkable. She was admitted to the medical surgical floor for acute COPD exacerbation. She was started on IV Solu-Medrol and provided with DuoNeb therapy. Empiric antibiotics were started with Zosyn and azithromycin based on her allergies. She was continued on CPAP at night. Respiratory panel was obtained and demonstrated rhinovirus. 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 Follow-up CT of the chest did not reveal an acute process. Antibiotics were discontinued. She was transitioned to an oral prednisone taper. She was ambulated in the [place] and declined to 89% while ambulating on 3 L. Was recommended that she may short-term use 4 L per minimal ambulating she feels short of breath. She was advised to follow-up with the pulmonary medicine clinic in 2 weeks. She only has an albuterol inhaler at home for her COPD we prescribed her Anoro at discharge. She will also need to follow-up with her PCP in 1 to 2 weeks. She was discharged home in stable condition. This patient was seen by Chicho Tao PA-C under the supervision of Doctor Yee. [] - Physical Exam Vitals/I&O's: Vital Signs Temp Pulse Resp BP Pulse Ox 98.1 F 88 18 149/57 H 89 04/08/19 09:59 04/08/19 09:59 04/08/19 09:59 04/08/19 09:59 04/08/19 10:04 Oxygen Flow Rate (L/min) [ 3 AMBULATION with Oxygen] Oxygen Flow Rate (L/min) 3 Oxygen Delivery Method Nasal Cannula Weight: 246 lb 4.101 oz Body Mass Index (BMI) 45.2 Intake and Output for Last 24 Hours 04/06/19 04/07/19 04/08/19 23:59 23:59 23:59 Intake Total 1817.25 / 2117.25 747.75 / 747.75 Output Total 1250 / 1550 600 / 600 Balance 567.25 / 567.25 147.75 / 147.75 General: Alert, Oriented x3, Cooperative HEENT: Atraumatic, PERRLA, EOMI, Normocephalic Neck: Supple, No JVD, Negative Carotid Bruits Lungs: Diminished, Wheezes Cardiovascular: Regular rate, No murmurs Abdomen: Bowel Sounds Present, Soft, Non Tender Extremities: No edema, Capillary Refill Less than 3 Seconds Skin: No rashes, No breakdown Musculoskeletal: No Tenderness to Palpation of Joints or Extremities Neurological: Cranial nerves II-XII grossly intact Psych/Mental Status: Normal Affect, Appropriate, Alert and oriented to time, place, person, mood and affect Microbiology Past 72 Hours 04/07/19 00:30 Sputum, Expectorated/Coughed Gram Stain - Final 04/07/19 00:30 Sputum, Expectorated/Coughed Respiratory Culture - Preliminary Appears to be normal respiratory shivam. Further studies to follow. 04/07/19 08:10 Mucosa - Other Respiratory Panel (PCR) - Final Rhinovirus 04/06/19 16:45 Mucosa - Nose Influenza Types A,B Direct FA (JULIETA) - Final Laboratory Results 04/07/19 16:18: POC Glucose 289 H 04/07/19 21:25: POC Glucose 392 H 04/08/19 05:45: Sodium 133 L, Potassium 4.8, Chloride 99, Carbon Dioxide 29.0, Anion Gap 5, BUN 25 H, Creatinine 0.99, Estim Creat Clear Calc 48.99, Est GFR (MDRD) Af Amer 74, Est GFR (MDRD) Non-Af 62, BUN/Creatinine Ratio 25.4 H, Glucose 328 H, Calcium 9.2 04/08/19 06:16: POC Glucose 324 H Discharge Diet: Low fat/ Low Cholesterol, 1800 Calorie Control Diet, 2000 mg Sodium Diet Discharge Activity: Return to Normal Activity Home Medications: Medications to take at Discharge Colestipol HCl 1 gm PO DAILY 04/06/19 Divalproex Ec 500 mg PO BID 04/06/19 Ibuprofen 600 mg PO TID 04/06/19 Insulin Glargine,Hum.rec.anlog [Basaglar Kwikpen U-100] 60 unit SQ QHS 04/06/19 Insulin Regular, Human [Novolin R] 0 unit SUBCUT ACHS 04/06/19 Lorazepam 0.5 mg PO BID PRN PRN 04/06/19 Metformin HCl 500 mg PO BID 04/06/19 Pantoprazole Sodium [Protonix] 40 mg PO DAILY 04/06/19 Potassium Chloride [K-Dur] 30 meq PO BID 04/06/19 Pregabalin 100 mg PO TID 04/06/19 Quetiapine Fumarate [Seroquel] 12.5 mg PO DAILY 04/06/19 Sucralfate [Carafate] 1 gm PO BID 04/06/19 Venlafaxine HCl [Venlafaxine HCl ER] 75 mg PO DAILY 04/06/19 traZODone [Desyrel] 100 mg PO QHS 04/06/19 Guaifenesin [Mucinex] 600 mg PO BID tab 04/08/19 Prednisone 10 mg PO UD #30 tab 04/08/19 Umeclidinium Brm/Vilanterol Tr [Anoro Ellipta 62.5-25 Mcg INH] 1 puff IH DAILY #1 blst.w.dev 04/08/19 Following Prescrptions Were Given to Patient: Umeclidinium Brm/Vilanterol Tr [Anoro Ellipta 62.5-25 Mcg INH] 1 puff IH DAILY #1 blst.w.dev Transmission Status: Received by [facility] Prednisone 10 mg PO UD #30 tab Transmission Status: Received by [facility] Primary Care Physician: DOMINIQUE GEORGE [Other] Please follow up with your Primary Care Physician in: 1-2 weeks Please Follow Up With: Maren Ponce NP-C When: 2 weeks Disposition: Home Minutes spent on discharge:: 35 Patient Condition:: Stable Medical Necessity - Tobacco Use Smoking Status: Current every day smoker Tobacco Use: Cigarettes Meaningful Use Info Meaningful Use Diagnoses (Choose all that apply): None applicable <Berkley Fraire - Last Filed: 04/08/19 16:19> Discharge Date and Diagnosis - Secondary Discharge Diagnosis Chronic Problems (Last Updated 04/06/19 @ 21:11 by Jory Raines DO) COPD exacerbation (Chronic) Hospital Course and Treatment Summary of Care Provided: patient seen by Chicho Tao PA-C under my supervision The patient is a 59 year old F with an extensive past medical history as listed. She was admitted through the ED with complaint of worsening shortness of breath with associated wheezing. She was admitted and managed for acute exacerbation of COPD and was started on Solu-Medrol and breathing treatments and was started on Zosyn and azithromycin on account of history of allergies. Chest x-ray showed no acute cardiopulmonary process. Respiratory panel was positive for rhinovirus. Pulmonary medicine was consulted. CT of the chest also was negative. Antibiotics were discontinued after respiratory panel tested positive for rhinovirus. She was switched to an oral prednisone taper and plan was for her to be discharged home. With ambulation on her baseline 3 L of oxygen, patient desaturated to 89%. She however refused to stay any further recommendation was that she could increase her oxygen level to at least 4 L while ambulating if she felt so short of breath as the acute COPD exacerbation was likely resulting in increased oxygen requirements. She was discharged home on 04/08/2019 and is follow-up with pulmonary clinic in 2 weeks and is also to follow-up with her PCP in 1 to 2 weeks. Patient not be using any albuterol inhaler at home and so she was also prescribed with an oral at discharge. She was counseled on compliance and counseled to quit smoking. She was discharged home on 04/08/2019. Patient seen and examined prior to discharge. She felt much better. Review of systems otherwise negative. Labs and vitals reviewed. Home medication reviewed and reconciled. o/e: Vital Signs Height 5 ft 2 in Weight: 246 lb 4.101 oz Weight in Pounds 246.3 lbs Pulse Ox [AMBULATION with 89 Oxygen] Pulse Ox 94 Temperature 98.1 F Pulse Rate 88 Respiratory Rate 18 Blood Pressure 149/57 Blood Pressure Position Semi-Fowlers General: Alert, Oriented x3, Cooperative, Lethargic HEENT: Atraumatic, PERRLA, EOMI, Normocephalic Neck: Supple, No JVD, Negative Carotid Bruits Lungs: decreased breath sounds bibasally, coarse crackles and rhonchi bilaterally. On 3L of oxygen Cardiovascular: Regular rate, No murmurs Abdomen: Bowel Sounds Present, Soft, Non Tender, Obese Extremities: No edema, Capillary Refill Less than 3 Seconds Skin: No rashes, No breakdown Musculoskeletal: No Tenderness to Palpation of Joints or Extremities Neurological: Cranial nerves II-XII grossly intact Psych/Mental Status: Normal Affect, Appropriate, Alert and oriented to time, place, person, mood and affect Plan as above. Rest as per Chicho Tao PA-C's note, which I have reviewed and endorsed. - Physical Exam Vitals/I&O's: Vital Signs Temp Pulse Resp BP Pulse Ox 98.1 F 88 18 149/57 H 89 04/08/19 09:59 04/08/19 09:59 04/08/19 09:59 04/08/19 09:59 04/08/19 10:04 Oxygen Flow Rate (L/min) [ 3 AMBULATION with Oxygen] Oxygen Flow Rate (L/min) 3 Oxygen Delivery Method Nasal Cannula Weight: 246 lb 4.101 oz Body Mass Index (BMI) 45.2 Intake and Output for Last 24 Hours 04/06/19 04/07/19 04/08/19 23:59 23:59 23:59 Intake Total 1817.25 / 2117.25 747.75 / 747.75 Output Total 1250 / 1550 600 / 600 Balance 567.25 / 567.25 147.75 / 147.75 Microbiology Past 72 Hours 04/07/19 00:30 Sputum, Expectorated/Coughed Gram Stain - Final 04/07/19 00:30 Sputum, Expectorated/Coughed Respiratory Culture - Preliminary Appears to be normal respiratory shivam. Further studies to follow. 04/07/19 08:10 Mucosa - Other Respiratory Panel (PCR) - Final Rhinovirus 04/06/19 16:45 Mucosa - Nose Influenza Types A,B Direct FA (JULIETA) - Final Laboratory Results 04/07/19 16:18: POC Glucose 289 H 04/07/19 21:25: POC Glucose 392 H 04/08/19 05:45: Sodium 133 L, Potassium 4.8, Chloride 99, Carbon Dioxide 29.0, Anion Gap 5, BUN 25 H, Creatinine 0.99, Estim Creat Clear Calc 48.99, Est GFR (MDRD) Af Amer 74, Est GFR (MDRD) Non-Af 62, BUN/Creatinine Ratio 25.4 H, Glucose 328 H, Calcium 9.2 04/08/19 06:16: POC Glucose 324 H Code Visit Inpatient E&M: 60074 Disch Hosp
== END 2019-04-08 11:00 | disposition home or self-care (01) | DRG 191 ==
LOC: ED 18:33 → MS3 18:49
PROVIDERS: Physician Assistant; Admitting Provider Internal Medicine; Emergency Provider Emergency Medicine; Referring Provider Internal Medicine; Visit Provider Student in an Organized Health Care Education/Training Program
DX: J44.1 Chronic obstructive pulmonary disease with (acute) exacerbation (principal); Z68.42 Body mass index [BMI] 45.0-49.9, adult; E87.1 Hypo-osmolality and hyponatremia; J96.11 Chronic respiratory failure with hypoxia; J20.6 Acute bronchitis due to rhinovirus; J44.0 Chronic obstructive pulmonary disease with (acute) lower respiratory infection; Z99.81 Dependence on supplemental oxygen; F17.210 Nicotine dependence, cigarettes, uncomplicated; G47.33 Obstructive sleep apnea (adult) (pediatric); E66.01 Morbid (severe) obesity due to excess calories; F31.9 Bipolar disorder, unspecified; E11.42 Type 2 diabetes mellitus with diabetic polyneuropathy; Z79.4 Long term (current) use of insulin
CPT/HCPCS: 36415; 71046; 71250; 80048; 80053; 82962; 83036; 83735; 83880; 84100; 84443; 84484; 85025; 87070; 87205; 87633; 87804; 93005; 94002; 94003; 94640; 94660; 97802; 99251; 99282; 99406; J7050; G0463

== ENCOUNTER 2019-04-25 23:14 | Inpatient (IN) | payer MEDICARE, MEDICAID, SELFPAY ==
[2019-04-06 20:15] VITALS: BMI 45.2
[2019-04-25 23:19] VITALS: BP 164/67; PULSE 118; RESP 29; TEMP 37.2; O2SAT 88; BMI 47.9
[2019-04-25 23:22] VITALS: BP 164/67; PULSE 118; RESP 21; TEMP 37.2; O2SAT 94
[2019-04-25 23:33] VITALS: O2SAT 88
--- NOTE | 2019-04-25 23:46 | EKG12_ITS ---
Test Reason : DYSRHYTHMIA Blood Pressure : / mmHG Vent. Rate : 112 BPM Atrial Rate : 112 BPM P-R Int : 136 ms QRS Dur : 086 ms QT Int : 310 ms P-R-T Axes : 002 -10 025 degrees QTc Int : 423 ms Sinus tachycardia Otherwise normal ECG Confirmed by CRISTIN LEIJA, ANITA ([id number]), pictures editor WALTER CARL ([id number]) on 04/26/2019 12:07:30 PM Referred By: Confirmed By:RAS AMARAL MD
--- NOTE | 2019-04-25 23:46 | RAD_ITS ---
STUDY: X-RAY CHEST REASON FOR EXAM: Female, 59 years old. Shortness of breath. TECHNIQUE: Single AP portable view of the chest. COMPARISON: 04/07/2019. FINDINGS: The lungs are normally expanded with fullness of the central vessels, left more than right suggestive of mild vascular congestion. There is no demonstrated pleural abnormality. There is borderline cardiomegaly. Normal mediastinum and felipa. There is atherosclerotic calcification of the aortic arch with tortuosity. There are diffuse degenerative changes of the visualized thoracic spine. Normal visualized ribs, clavicles, and shoulders. There is no demonstrated abnormality of the visualized soft tissue structures of the upper abdomen. RAD/Chest 1 View (Portable) IMPRESSION: Asymmetric vascular congestion, left more than right, cannot exclude superimposed pneumonia. Electronically Signed: Maryanne Alvarez MD at 0:46 EST , Service support ,
[2019-04-26] VITALS (24 sets, daily range): BP systolic 112–127; BP diastolic 50–88; PULSE 70–113; RESP 12–32; TEMP 36.3–37.7; O2SAT 92–97; BMI 45.8; BMI 45.9
[2019-04-26] LABS: Absolute Lymphocyte Count 1.36 X10^3/uL (0.83-4.51); Absolute Neutrophil Count 11.3 X10^3/uL (2.0-7.7); Basophil# 0.04 X10^3/uL; Basophil% 0.3 % (0-1); Eosinophil# 0.01 X10^3/uL; Eosinophils% 0.1 % (0-5); Hematocrit 39.6 % (37-47); Hemoglobin 13.2 g/dL (12.0-15.0); Lymphocyte # 1.36 X10^3/ul (4.0); Mean Corp Hgb Conc 33.3 g/dL (32-36); Mean Corpuscular Hgb 30.1 pg (27.0-32.0); Mean Corpuscular Volume 90.4 fL (81-99); Mean Platelet Vol. 9.7 fl (6.2-12.0); Monocyte% 5.9 % (0-10); NRBC Flagged by Analyzer 0.1 % (0-5); Neutrophil # 11.29 X10^3/uL (2.7-7.7); Neutrophil % 82.8 % (47-70); Platelet Count 223 K/mm3 (150-450); RBC Distribution Width CV 14.8 % (11.6-14.6); RBC Distribution Width SD 49.2 fl (35.1-43.9); Red Blood Count 4.38 M/mm3 (4.2-5.4); White Blood Count 13.6 K/mm3 (4.4-11.0)
[2019-04-26] MEDS: Ipratropium/Albuterol Sulfate 3 ML AMPUL.NEB INHALATION ×5 (00:07→23:20)
[2019-04-26] MEDS: Albuterol 2.5 MG/3 ML VIAL.NEB. INHALATION ×3 (00:07→01:10)
[2019-04-26 00:18] LABS: Anion Gap 6 (5-15); BUN 4 mg/dL (7-18); BUN/Creat Ratio 4.4 RATIO (10-20); Calcium,Total 8.9 mg/dL (8.5-10.1); Chloride 96 mmol/L (98-107); EST Glomerular Filtration Rate 68 mL/min (>60); Est Glom Filt Rate - Afr Amer 83 mL/min (>60); Estimated Creatinine Clearance 53.89 ml/min; Glucose 172 mg/dL (74-106); Potassium 4.8 mmol/L (3.5-5.1); Sodium Level 132 mmol/L (136-145)
[2019-04-26 00:36] LABS: Allen Test POS; Base Excess 6 mmol/L (-2 to +2); Bicarbonate 30.7 mmol/L (22-26); Blood Gas Specimen Type ART; O2 Delivery Device Nasal Can; PO2 66 mmHG (75-100); SITE L Radial; SO2 92 % (95-99); Time Given 20; Total Carbon Dioxide 32 mmol/L; pCO2 51.8 mmHg (35-45); pH 7.38 (7.35-7.45)
[2019-04-26] MEDS: MethylPREDNISolone 125 MG/2 ML Vial IV (00:42)
--- NOTE | 2019-04-26 01:10 | ED.VISSUMM ---
- ER Visit Summary Date of Service: 04/26/19 Chief Complaint: Shortness of breath History of Present Illness: The patient is a 59 F presenting with shortness of breath. Patient states she has not been feeling well for several days. She became more short of breath today. She has tried home CPAP. She typically wears home O2 3L as needed. She was recently treated for sinusitis with Z-Isaías and steroids. She has finished these antibiotics and steroids. On EMS arrival she was 83% on room air. She complains of chills, shortness of breath, cough, headache. She denies chest pain or other complaints. Physical Examination: Vitals are stable. Temperature 99. Heart rate 118, respiratory rate 21. Pulse ox 94% on nasal cannula. HEENT exam is unremarkable. Neck is supple. Lungs are diminished and wheezing bilaterally. Heart is regular rate and rhythm. Abdomen is soft nontender nondistended. Extremities are unremarkable. Skin is warm and dry. No focal neurologic deficit. Remainder of exam is unremarkable. Emergency Department Course and Treatment: EKG is sinus tachycardia 101 rate 112 with no acute ischemic changes. Patient was put on BiPAP on arrival. She was given albuterol, Atrovent aerosols. She was given Solu-Medrol IV. CBC shows a white count of 13.6. Chemistries show sodium 132, glucose 172. Troponin is negative. Lactic acid is normal. Influenza negative. Chest x-ray shows asymmetric vascular congestion, left more than right, cannot exclude superimposed pneumonia. Due to multiple allergies she was given Unasyn and Zithromax. Discussed with the hospitalist for admission. Disposition: Admission Impression: COPD exacerbation, hypoxia, pneumonia This note was generated with [employer] dictation software. It may contain incorrect words, spelling, and punctuation that were not noted in review of the chart prior to signing ED Disposition - Plan for ED Patient: Referrals: DOMINIQUE GEORGE [Other]
--- NOTE | 2019-04-26 01:36 | CPS ---
Pt. was given initial Duoneb and one Albuterol via aerosol mask. The following two Albuterol tx.'s were given to pt. in-line with the BiPaP
--- NOTE | 2019-04-26 02:43 | HP.PCM_ITS ---
History of Present Illness Date of Admission: 04/26/19 Chief Complaint: Shortness of breath The patient is a 59 year old F with PMH as below who presents with shortness of breath from home. She was recently discharged from the hospital after COPD exacerbation. Initially she was on antibiotics however was found to be secondary to RSV and was just discharged on prednisone. She comes back in today saying that she has not been feeling well for the last several days and that she has been more short of breath today. She is on 3 L nasal cannula at home as needed, and was recently treated by her PCP for sinusitis, Z-Isaías and steroids have been provided to her at that time. She has completed the course and still does not feel any better. On arrival by EMS she was 83% on room air and was complaining of chills and shortness of breath as well as a cough. Because of her respiratory status she was started on BiPAP in the ER and appears to be doing a little bit better. Leukocytosis in the ER 13.6 and chest x-ray showed a possible pneumonia but also vascular congestion. Past Medical History Past Medical History (Chronic Problems): Chronic Problems (Last Updated 04/06/19 @ 21:11 by Jory Raines DO) COPD exacerbation (Chronic) Medical History: Medical History (Last Updated 04/06/19 @ 21:11 by Jory Raines DO) Anxiety F41.9 Depression F32.9 Diabetes E11.9 GERD (gastroesophageal reflux disease) K21.9 Morbid obesity E66.01 Neuropathy G62.9 ISABELL (obstructive sleep apnea) G47.33 COPD (chronic obstructive pulmonary disease) J44.9 Allergies cephalexin [From Keflex] Allergy (Verified 04/25/19 23:18) Angioedema ciprofloxacin [From Cipro] Allergy (Verified 04/25/19 23:18) Angioedema doxycycline Allergy (Verified 04/25/19 23:18) Unknown sulfamethoxazole [From Bactrim] Allergy (Verified 04/25/19 23:18) Angioedema trimethoprim [From Bactrim] Allergy (Verified 04/25/19 23:18) Angioedema bees Adverse Reaction (Uncoded 04/25/19 23:18) Hives seafood Adverse Reaction (Uncoded 04/25/19 23:18) Hives Home Medications: Ambulatory Orders Medication Instructions Recorded Colestipol HCl 1 gm PO BID 04/06/19 Divalproex Ec 500 mg PO BID 04/06/19 Ibuprofen 600 mg PO TID PRN PRN 04/06/19 Insulin Glargine,Hum.rec.anlog 10 unit SQ DAILY 04/06/19 [Basaglar Kwikpen U-100] Lorazepam 0.5 mg PO BID PRN PRN 04/06/19 Metformin HCl 500 mg PO BID 04/06/19 Pantoprazole Sodium [Protonix] 40 mg PO DAILY 04/06/19 Potassium Chloride [K-Dur] 30 meq PO BID 04/06/19 Pregabalin 100 mg PO TID 04/06/19 Quetiapine Fumarate [Seroquel] 25 mg PO QHS 04/06/19 Sucralfate [Carafate] 1 gm PO DAILY 04/06/19 Venlafaxine HCl [Venlafaxine HCl 75 mg PO DAILY 04/06/19 ER] traZODone [Desyrel] 100 mg PO QHS 04/06/19 Guaifenesin [Mucinex] 600 mg PO BID tab 04/08/19 Umeclidinium Brm/Vilanterol Tr 1 puff IH DAILY #1 blst.w.dev 04/08/19 [Anoro Ellipta 62.5-25 Mcg INH] Furosemide 40 mg PO BID 04/25/19 Insulin Aspart [Novolog Flexpen 0 units SUBCUT TIDCM 04/25/19 ([facility])] Loperamide [Imodium] 2 mg PO Q2H PRN PRN 04/25/19 Paliperidone Palmitate [Invega 234 mg IM Q30D 04/25/19 Sustenna] Surgical History: no surgical history Psychiatric History: No pertinent psych hx Smoking Status: Current every day smoker Tobacco Use: Cigarettes Alcohol: None Drugs: None - *Family History Maternal Family History: Family History (Last Updated 04/06/19 @ 21:11 by Jory Raines DO) Other unknown Paternal Family History: Family History (Last Updated 04/06/19 @ 21:11 by Jory Raines DO) Other unknown Review of Systems Constitutional: Reports: Chills, Fever HEENT: Denies: Head Aches, Sinus Congestion, Sinus Drainage Cardiovascular: Denies: Chest Pain, Palpitations Respiratory: Reports: Cough, Shortness of Breath. Denies: Shortness of breath at rest, Sputum production Gastrointestinal: Denies: Abdominal Pain, Nausea, Vomiting Genitourinary: Denies: Dysuria Musculoskeletal: Denies: Joint Pain, Joint Tenderness Skin: Denies: Rash, Wounds Neurological: Denies: Numbness, Tingling, Focal weakness Psychiatric: Denies: Anxiety, Depression Hematologic/ Lymphatic: Denies: Easy Bruising, Easy Bleeding VTE Information - Inpt Only VTE Present on Admission: No - Physical Exam Vitals/I&O's: Vital Signs Temp Pulse Resp BP Pulse Ox 99.1 F 107 H 32 H 124/57 H 93 04/26/19 02:20 04/26/19 02:20 04/26/19 02:20 04/26/19 02:20 04/26/19 02:20 Oxygen Flow Rate (L/min) 4 Oxygen Delivery Method Bi-pap Weight: 250 lb 14.177 oz Body Mass Index (BMI) 45.8 General: Alert, Oriented x3, Cooperative, No apparent distress HEENT: Atraumatic, PERRLA, EOMI, Normocephalic Oral: Dry Mucosa Neck: Supple, No JVD Lungs: Diminished, Wheezes, - - Poor air movement Cardiovascular: Regular rate, Regular Rhythm, Normal S1, Normal S2, No murmurs Abdomen: Soft, Non Tender, Non-Distended, No Hepato-splenomegaly Extremities: No edema, Capillary Refill Less than 3 Seconds Microbiology Past 72 Hours 04/26/19 00:10 Mucosa - Nose Influenza Types A,B Direct FA (JULIETA) - Final Laboratory Results 04/25/19 23:26: WBC 13.6 H, RBC 4.38, Hgb 13.2, Hct 39.6, MCV 90.4, MCH 30.1, MCHC 33.3, RDW Std Deviation 49.2 H, RDW Coeff of Da 14.8 H, Plt Count 223, MPV 9.7, Immature Gran % (Auto) 0.900, Neut % (Auto) 82.8 H, Lymph % (Auto) 10.0 L, [place] % (Auto) 5.9, Eos % (Auto) 0.1, Baso % (Auto) 0.3, Absolute Neuts (auto) 11.3 H, Absolute Lymphs (auto) 1.36, Nucleated RBC % 0.1 04/25/19 23:26: Sodium 132 L, Potassium 4.8, Chloride 96 L, Carbon Dioxide 30.0, Anion Gap 6, BUN 4 L, Creatinine 0.90, Estim Creat Clear Calc 53.89, Est GFR (MDRD) Af Amer 83, Est GFR (MDRD) Non-Af 68, BUN/Creatinine Ratio 4.4 L, Glucose 172 H, Calcium 8.9, Troponin I < 0.015 04/25/19 23:26: Lactic Acid 1.0 04/26/19 00:28: Specimen Type ART, Sample Site L Radial, pH 7.38, Bicarbonate Actual 30.7 H, POC Total CO2 32, Base Excess 6 H, O2 Saturation 92 L, ABG pCO2 51.8 H, ABG pO2 66 L, Stuart Test POS, O2 Delivery Device Nasal Can, Liter Flow 4.0, Blood Gas Notified Whom ED MD, Blood Gas Notified Time 20 Current Medications Sodium Chloride () 10 - 40 ml IV UD PRN PRN Reason: SALINE FLUSH Assessment/Plan All Active Problems (Last Updated 04/06/19 @ 21:11 by Jory Raines DO) Failure of outpatient treatment (Acute) 1. Acute on chronic hypoxic respiratory failure secondary to COPD exacerbation and possible pneumonia -Chest x-ray has chronic congestion but cannot exclude superimposed pneumonia -Because there is no definitive source of infection, she is not septic -Given leukocytosis, will initiate treatment with Unasyn and azithromycin -Continue with duo nebs and steroids -Continue with BiPAP, can recheck ABG in a few hours -Given vascular congestion, shortness of breath, may need an echo if she still here on Saturday -In the meantime will obtain a BNP 2. IDDM 2/diabetic neuropathy -Hold her metformin, continue with her insulin -Accu-Cheks AC at bedtime continue with sliding scale insulin -Continue with Lyrica 3. GERD -Stable -Continue with PPI 4. Anxiety/depression -Stable -Continue with Seroquel and Effexor -Continue with Ativan as needed DVT: Lovenox Code Visit Inpatient E&M: 29320 Init Hosp L3
[2019-04-26 04:24] LABS: Absolute Lymphocyte Count 0.56 X10^3/uL (0.83-4.51); Absolute Neutrophil Count 12.4 X10^3/uL (2.0-7.7); Basophil# 0.01 X10^3/uL; Basophil% 0.1 % (0-1); Hematocrit 36.6 % (37-47); Hemoglobin 12.2 g/dL (12.0-15.0); Lymphocyte # 0.56 X10^3/ul (4.0); Lymphocyte % 4.2 % (19-41); Mean Corp Hgb Conc 33.3 g/dL (32-36); Mean Corpuscular Hgb 30.1 pg (27.0-32.0); Mean Corpuscular Volume 90.4 fL (81-99); Mean Platelet Vol. 9.2 fl (6.2-12.0); Monocyte# 0.31 X10^3/uL; Monocyte% 2.3 % (0-10); NRBC Flagged by Analyzer 0 % (0-5); Neutrophil # 12.39 X10^3/uL (2.7-7.7); Neutrophil % 92.7 % (47-70); POSITIVE DIFFERENTIAL YES; POSITIVE MORPHOLOGY YES; Platelet Count 197 K/mm3 (150-450); RBC Distribution Width CV 14.8 % (11.6-14.6); RBC Distribution Width SD 48.7 fl (35.1-43.9); Red Blood Count 4.05 M/mm3 (4.2-5.4); White Blood Count 13.4 K/mm3 (4.4-11.0)
[2019-04-26 04:26] LABS: Allen Test POS; Base Excess 5 mmol/L (-2 to +2); Bicarbonate 29.5 mmol/L (22-26); Blood Gas Specimen Type ART; EPAP 6; FI02 35; IPAP 14; PO2 62 mmHG (75-100); RR 12; SITE R Radial; SO2 91 % (95-99); Time Given 415; Total Carbon Dioxide 31 mmol/L; pCO2 48.7 mmHg (35-45); pH 7.39 (7.35-7.45)
[2019-04-26 04:33] LABS: Differential Indicated SCAN CRITERIA MET
[2019-04-26 04:34] LABS: Anion Gap 5 (5-15); BUN 6 mg/dL (7-18); BUN/Creat Ratio 7.6 RATIO (10-20); Calcium,Total 8.3 mg/dL (8.5-10.1); Chloride 96 mmol/L (98-107); Creatinine, Serum 0.79 mg/dL (0.55-1.02); EST Glomerular Filtration Rate 79 mL/min (>60); Est Glom Filt Rate - Afr Amer 96 mL/min (>60); Estimated Creatinine Clearance 61.39 ml/min; Glucose 236 mg/dL (74-106); Potassium 4.3 mmol/L (3.5-5.1); Sodium Level 130 mmol/L (136-145)
[2019-04-26 04:44] LABS: BNP,B-Type NATRIURETIC PEPTIDE 72.1 pg/mL (0-100)
[2019-04-26] MEDS: Pregabalin 50 MG Capsule 100 MG PO ×3 (05:15→21:44)
[2019-04-26] MEDS: Insulin Lispro 100 UNIT/ML INSULN.PEN SC ×4 (06:52→21:35)
[2019-04-26 06:55] LABS: Bedside Glucose 254 mg/dL (70-110)
--- NOTE | 2019-04-26 08:37 | PCM.PN.BLA ---
Progress Note Patient is a 59-year-old lady with past medical history sent in for BMI of 45.9, diabetes mellitus type 2 who presented with progressive shortness of breath and assessment of acute hypoxic and hypercapnic respiratory failure made. Admitted to a monitored bed for further management. Checks x-ray obtained demonstrated asymmetric vascular congestion, left more than right, cannot exclude superimposed pneumonia. Patient was placed on noninvasive ventilation admitted to monitored bed. Patient seen and examined. Her initial assessment including diagnostic work-up history and physical and management orders reviewed will follow. STROKE Vital Signs/Narrative: Vital Signs Pulse 04/26/19 07:27 71
[2019-04-26 11:45] LABS: Bedside Glucose 243 mg/dL (70-110)
[2019-04-26] MEDS: Venlafaxine XR 75 MG Capsule PO (11:48)
[2019-04-26] MEDS: Sucralfate 1 GM Tablet PO (11:48)
[2019-04-26] MEDS: Enoxaparin 40 MG/0.4 ML Syringe SC (11:49)
[2019-04-26] MEDS: Furosemide 40 MG Tablet PO ×2 (11:49→21:43)
[2019-04-26] MEDS: Pantoprazole Sodium 40 MG Tablet PO (11:49)
[2019-04-26] MEDS: 0.9% Saline Lock 10 ML Syringe IV ×3 (16:29→22:03)
[2019-04-26 18:56] LABS: Bedside Glucose 313 mg/dL (70-110)
[2019-04-26] MEDS: traZODone 100 MG Tablet PO (21:43)
[2019-04-26] MEDS: QUEtiapine 25 MG Tablet PO (21:43)
[2019-04-26 23:15] LABS: Bedside Glucose 361 mg/dL (70-110)
[2019-04-27] VITALS (17 sets, daily range): BP systolic 112–148; BP diastolic 63–75; PULSE 58–80; RESP 12–21; TEMP 35.9–36.8; O2SAT 92–96
[2019-04-27] MEDS: Pregabalin 50 MG Capsule 100 MG PO ×3 (05:22→21:58)
[2019-04-27] MEDS: Insulin Lispro 100 UNIT/ML INSULN.PEN SC ×4 (06:30→21:45)
[2019-04-27 06:55] LABS: Bedside Glucose 301 mg/dL (70-110)
[2019-04-27] MEDS: Ipratropium/Albuterol Sulfate 3 ML AMPUL.NEB INHALATION ×4 (07:13→20:18)
[2019-04-27 07:37] LABS: Absolute Lymphocyte Count 0.79 X10^3/uL (0.83-4.51); Absolute Neutrophil Count 8.7 X10^3/uL (2.0-7.7); Basophil# 0.01 X10^3/uL; Basophil% 0.1 % (0-1); Hematocrit 34.6 % (37-47); Hemoglobin 11.3 g/dL (12.0-15.0); Lymphocyte # 0.79 X10^3/ul (4.0); Lymphocyte % 7.9 % (19-41); Mean Corp Hgb Conc 32.7 g/dL (32-36); Mean Corpuscular Hgb 29.2 pg (27.0-32.0); Mean Corpuscular Volume 89.4 fL (81-99); Mean Platelet Vol. 9.8 fl (6.2-12.0); Monocyte# 0.52 X10^3/uL; Monocyte% 5.2 % (0-10); NRBC Flagged by Analyzer 0 % (0-5); Neutrophil # 8.67 X10^3/uL (2.7-7.7); Neutrophil % 86.1 % (47-70); Platelet Count 224 K/mm3 (150-450); RBC Distribution Width CV 14.5 % (11.6-14.6); RBC Distribution Width SD 46.9 fl (35.1-43.9); Red Blood Count 3.87 M/mm3 (4.2-5.4); White Blood Count 10.1 K/mm3 (4.4-11.0)
[2019-04-27 08:09] LABS: Anion Gap 3 (5-15); BUN 19 mg/dL (7-18); Calcium,Total 8.7 mg/dL (8.5-10.1); Chloride 97 mmol/L (98-107); Creatinine, Serum 0.91 mg/dL (0.55-1.02); EST Glomerular Filtration Rate 68 mL/min (>60); Est Glom Filt Rate - Afr Amer 82 mL/min (>60); Glucose 299 mg/dL (74-106); Magnesium 2.2 mg/dL (1.6-2.6); Potassium 4.7 mmol/L (3.5-5.1); Sodium Level 133 mmol/L (136-145)
[2019-04-27] MEDS: Venlafaxine XR 75 MG Capsule PO (09:57)
[2019-04-27] MEDS: Enoxaparin 40 MG/0.4 ML Syringe SC (09:58)
[2019-04-27] MEDS: Pantoprazole Sodium 40 MG Tablet PO (09:58)
[2019-04-27] MEDS: Furosemide 40 MG Tablet PO ×2 (09:58→21:58)
[2019-04-27] MEDS: Sucralfate 1 GM Tablet PO (11:41)
[2019-04-27 12:11] LABS: Bedside Glucose 363 mg/dL (70-110)
[2019-04-27] MEDS: 0.9% Saline Lock 10 ML Syringe IV (13:30)
--- NOTE | 2019-04-27 13:47 | CASEMGMT ---
READMISSION CHART REVIEW: Pt initially presented by car on 04/06-04/08/19 with increased SOB, without her oxygen tank, and after 8 days of prednisone. Pt was admitted for Acute exacerbation of COPD to MS3. Pt is normally on 3 liters of home oxygen but still smokes and removes it to smoke. Pt also has a cpap and nebulizer at home. Pt was initially placed on antibx but then stopped when RSV back positive and then discharged on another course of prednisone. Pt then returned on 04/26/19 by EMS with c/o worsening SOB. When EMS arrived, pt was 83% on room air. Pt is supposed to be on 3 liters at home. Pt admitted this time for hypoxic resp failure and pneumonia with elevated WBC and CXR with possible pna but also vascular congestion. Pt placed on 2 iv antibx at this time. CM to follow up with pt regarding oxygen adherence and for any further discharge planning/needs. Jose ALANIZ CM
--- NOTE | 2019-04-27 14:13 | PN_ITS ---
Subjective: Patient seen and examined. Drowsy on assessment. Reports improvement in shortness of breath. Denies fever, chills. - Physical Exam Vitals/I&O's: Vital Signs Temp Pulse Resp BP Pulse Ox 96.7 F L 68 18 134/75 H 95 04/27/19 09:20 04/27/19 11:21 04/27/19 11:21 04/27/19 09:20 04/27/19 11:21 Oxygen Flow Rate (L/min) 3 Oxygen Delivery Method Nasal Cannula Weight: 250 lb 14.177 oz Body Mass Index (BMI) 45.8 Intake and Output for Last 24 Hours 04/25/19 04/26/19 04/27/19 23:59 23:59 23:59 Intake Total 1034 / 1081 1154 / 1154 Output Total 800 / 800 Balance 234 / 281 1154 / 1154 General: - - Drowsy, no apparent distress HEENT: Atraumatic, PERRLA, EOMI, Normocephalic Oral: Dry Mucosa Neck: Supple, No JVD, Negative Carotid Bruits Lungs: Diminished, Wheezes Cardiovascular: Regular rate, Regular Rhythm, Normal S1, Normal S2, No murmurs Abdomen: Bowel Sounds Present, Soft, Non Tender, Non-Distended, Obese Extremities: No clubbing, No cyanosis, No edema, Capillary Refill Less than 3 Seconds Skin: No rashes, No breakdown Musculoskeletal: No Tenderness to Palpation of Joints or Extremities Neurological: Cranial nerves II-XII grossly intact, Neuro grossly intact Psych/Mental Status: Normal Affect, Appropriate Microbiology Past 72 Hours 04/26/19 21:40 Mucosa - Nasopharyngeal Respiratory Panel (PCR) - Final 04/26/19 16:57 Interface Orders Streptococcus pneumoniae Antigen (M - Final 04/26/19 16:57 Urine, Clean Catch Legionella Antigen - Final 04/26/19 00:10 Mucosa - Nose Influenza Types A,B Direct FA (JULIETA) - Final Laboratory Results 04/26/19 17:31: POC Glucose 313 H 04/26/19 21:27: POC Glucose 361 H 04/27/19 06:29: POC Glucose 301 H 04/27/19 06:43: WBC 10.1, RBC 3.87 L, Hgb 11.3 L, Hct 34.6 L, MCV 89.4, MCH 29.2, MCHC 32.7, RDW Std Deviation 46.9 H, RDW Coeff of Da 14.5, Plt Count 224, MPV 9.8, Immature Gran % (Auto) 0.700, Neut % (Auto) 86.1 H, Lymph % (Auto) 7.9 L, [place] % (Auto) 5.2, Eos % (Auto) 0.0, Baso % (Auto) 0.1, Absolute Neuts (auto) 8.7 H, Absolute Lymphs (auto) 0.79 L, Nucleated RBC % 0 04/27/19 06:43: Sodium 133 L, Potassium 4.7, Chloride 97 L, Carbon Dioxide 33.0 H, Anion Gap 3 L, BUN 19 H, Creatinine 0.91, Estim Creat Clear Calc 53.30, Est GFR (MDRD) Af Amer 82, Est GFR (MDRD) Non-Af 68, BUN/Creatinine Ratio 21.0 H, Glucose 299 H, Calcium 8.7, Magnesium 2.2 04/27/19 11:35: POC Glucose 363 H Current Medications Albuterol/Ipratropium (Duoneb) 3 ml INHALATION Q4HWA.RT [facility] Last Admin: 04/27/19 11:21 Dose: 3 ml Documented by: Colestipol HCl (Colestid Tablet) 1 gm PO BID [facility] Last Admin: 04/27/19 09:58 Dose: 1 gm Documented by: Dextrose (D50w Syringe) 0 gm IV X1 PRN; Protocol PRN Reason: Hypoglycemia Enoxaparin Sodium (Lovenox) 40 mg SC DAILY [facility] Last Admin: 04/27/19 09:58 Dose: 40 mg Documented by: Furosemide (Lasix) 40 mg PO BID [facility] Last Admin: 04/27/19 09:58 Dose: 40 mg Documented by: Glucagon () 1 mg IM .X1 PRN PRN Reason: Hypoglycemia Ampicillin Sodium/Sulbactam (Sodium 3 gm/ Sodium Chloride) 112 mls @ 150 mls/hr IV Q8 [facility] Last Admin: 04/27/19 13:30 Dose: 150 mls/hr Documented by: Azithromycin 500 mg/ Dextrose 255 mls @ 250 mls/hr IV Q24H [facility] Last Infusion: 04/27/19 00:09 Dose: Infused Documented by: Insulin Glargine (Lantus (Bkc)) 10 units SC DAILY [facility] Last Admin: 04/27/19 09:58 Dose: 10 units Documented by: Insulin Human Lispro (Humalog Kwikpen (Bkc)) 0 unit SC ACHS [facility]; Protocol Last Admin: 04/27/19 11:41 Dose: 8 u Documented by: Lorazepam (Ativan) 0.5 mg PO BID PRN PRN PRN Reason: ANXIETY Methylprednisolone (Solu-Medrol) 40 mg IV Q8 [facility] Last Admin: 04/27/19 13:29 Dose: 40 mg Documented by: Pantoprazole Sodium (Protonix) 40 mg PO DAILY [facility] Last Admin: 04/27/19 09:58 Dose: 40 mg Documented by: Potassium Chloride (K-Dur) 30 meq PO BID [facility] Last Admin: 04/27/19 09:57 Dose: 30 meq Documented by: Pregabalin (Lyrica) 100 mg PO TID [facility] Last Admin: 04/27/19 13:29 Dose: 100 mg Documented by: Quetiapine Fumarate (Seroquel) 25 mg PO QHS [facility] Last Admin: 04/26/19 21:43 Dose: 25 mg Documented by: Sodium Chloride () 10 - 40 ml IV UD PRN PRN Reason: SALINE FLUSH Last Admin: 04/27/19 13:30 Dose: 10 ml Documented by: Sucralfate (Carafate) 1 gm PO DAILY@0700 [facility] Last Admin: 04/27/19 11:41 Dose: 1 gm Documented by: Trazodone HCl (Desyrel) 100 mg PO QHS [facility] Last Admin: 04/26/19 21:43 Dose: 100 mg Documented by: Venlafaxine HCl (Effexor Xr) 75 mg PO DAILY [facility] Last Admin: 04/27/19 09:57 Dose: 75 mg Documented by: Medical Necessity - Tobacco Use Smoking Status: Current every day smoker Tobacco Use: Cigarettes Assessment/Plan All Active Problems (Last Updated 04/06/19 @ 21:11 by Jory Raines DO) Failure of outpatient treatment (Acute) 1. Acute on chronic hypoxic respiratory failure secondary to exacerbation of COPD and community-acquired pneumonia-on 3 L nasal cannula at baseline. Currently requiring 3 to 4 L, continue supplement oxygen to maintain O2 above 90%. 2. COPD exacerbation-respiratory panel negative. Continue IV Solu-Medrol. Albuterol and DuoNeb aerosols. 3. Community-acquired pneumonia-fever improved. Continue azithromycin and Unasyn. 4. ISABELL-continue CPAP regimen. 5. Tobacco dependence-encouraged tobacco cessation. 6. Type 2 diabetes mellitus with peripheral lbhernyrld-Gjao-Zierv AC at bedtime with sliding scale insulin. 7. Bipolar disorder/Anxiety/Depression-continue Seroquel, Effexor. 8. GERD- continue PPI. DVT prophylaxis- lovenox sc This patient was seen by SHEREEN Madrigal under the supervision of Dr. Abreu.
[2019-04-27 16:10] LABS: Bedside Glucose 319 mg/dL (70-110)
[2019-04-27] MEDS: traZODone 100 MG Tablet PO (21:58)
[2019-04-27] MEDS: QUEtiapine 25 MG Tablet PO (21:58)
[2019-04-27 22:36] LABS: Bedside Glucose 386 mg/dL (70-110)
[2019-04-28] VITALS (11 sets, daily range): BP systolic 135–148; BP diastolic 72–76; PULSE 57–73; RESP 12–18; TEMP 36.6–36.8; O2SAT 87–96
[2019-04-28] MEDS: Pregabalin 50 MG Capsule 100 MG PO (05:02)
[2019-04-28] MEDS: 0.9% Saline Lock 10 ML Syringe IV (05:02)
--- NOTE | 2019-04-28 05:55 | RAD_ITS ---
STUDY: X-RAY CHEST REASON FOR EXAM: Female, 59 years old. Shortness of breath. TECHNIQUE: PA and lateral views of the chest. COMPARISON: Comparison is made with prior study dated April 25, 2019. FINDINGS: EKG electrodes are seen. Mild increased markings at the lung bases likely worse on the left side suggestive of a bibasilar atelectasis. There is blunting of both costophrenic angles posteriorly. There is mild cardiac enlargement. Normal mediastinum and felipa. Normal visualized pulmonary arteries. There is atherosclerotic calcification of the aortic arch with tortuosity. Normal visualized thoracic spine. Prior fusion in the lower cervical spine. Prior vertebroplasty of the L1 vertebrae. There is no demonstrated abnormality of the visualized soft tissue structures of the upper abdomen. RAD/Chest PA and Lateral IMPRESSION: Mild degree of increased markings at the lung bases suggest bibasilar atelectasis slightly worse on the left side with blunting of both costophrenic angles. Electronically Signed: Bryan Kwok, at 10:52 EST , Service support ,
[2019-04-28] MEDS: Insulin Lispro 100 UNIT/ML INSULN.PEN SC ×2 (06:30→11:25)
[2019-04-28 06:44] LABS: Absolute Lymphocyte Count 1.12 X10^3/uL (0.83-4.51); Absolute Neutrophil Count 10.7 X10^3/uL (2.0-7.7); Basophil# 0.01 X10^3/uL; Basophil% 0.1 % (0-1); Hematocrit 35.5 % (37-47); Hemoglobin 11.6 g/dL (12.0-15.0); Lymphocyte # 1.12 X10^3/ul (4.0); Mean Corp Hgb Conc 32.7 g/dL (32-36); Mean Corpuscular Hgb 29.8 pg (27.0-32.0); Mean Corpuscular Volume 91.3 fL (81-99); Mean Platelet Vol. 9.5 fl (6.2-12.0); Monocyte# 0.67 X10^3/uL; Monocyte% 5.4 % (0-10); NRBC Flagged by Analyzer 0 % (0-5); Neutrophil # 10.65 X10^3/uL (2.7-7.7); Neutrophil % 85.1 % (47-70); Platelet Count 262 K/mm3 (150-450); RBC Distribution Width CV 14.6 % (11.6-14.6); RBC Distribution Width SD 49.1 fl (35.1-43.9); Red Blood Count 3.89 M/mm3 (4.2-5.4); White Blood Count 12.5 K/mm3 (4.4-11.0)
[2019-04-28 06:46] LABS: Bedside Glucose 299 mg/dL (70-110)
[2019-04-28 06:49] LABS: Anion Gap 3 (5-15); BUN 27 mg/dL (7-18); Calcium,Total 8.6 mg/dL (8.5-10.1); Chloride 98 mmol/L (98-107); EST Glomerular Filtration Rate 61 mL/min (>60); Est Glom Filt Rate - Afr Amer 73 mL/min (>60); Glucose 311 mg/dL (74-106); Potassium 4.9 mmol/L (3.5-5.1); Sodium Level 134 mmol/L (136-145)
[2019-04-28] MEDS: Ipratropium/Albuterol Sulfate 3 ML AMPUL.NEB INHALATION ×2 (07:06→10:47)
[2019-04-28] MEDS: Furosemide 40 MG Tablet PO (09:48)
[2019-04-28] MEDS: Venlafaxine XR 75 MG Capsule PO (09:48)
[2019-04-28] MEDS: Enoxaparin 40 MG/0.4 ML Syringe SC (09:49)
[2019-04-28] MEDS: Pantoprazole Sodium 40 MG Tablet PO (09:49)
--- NOTE | 2019-04-28 11:15 | DCINST_ITS ---
You will use the following diet at home:: Calorie/Carbohydrate Controlled (specify 1200, 1400, etc) Discharge Activity: Return to Normal Activity Call your doctor if you observe: Shortness of breath, Dizziness, Fainting spells, Chest pain Allergies/Adverse Reactions: Allergies cephalexin [From Keflex] Allergy (Verified 04/25/19 23:18) Angioedema ciprofloxacin [From Cipro] Allergy (Verified 04/25/19 23:18) Angioedema doxycycline Allergy (Verified 04/25/19 23:18) Unknown sulfamethoxazole [From Bactrim] Allergy (Verified 04/25/19 23:18) Angioedema trimethoprim [From Bactrim] Allergy (Verified 04/25/19 23:18) Angioedema bees Adverse Reaction (Uncoded 04/25/19 23:18) Hives seafood Adverse Reaction (Uncoded 04/25/19 23:18) Hives Medications to take at Discharge Colestipol HCl 1 gm PO BID 04/06/19 Divalproex Ec 500 mg PO BID 04/06/19 Ibuprofen 600 mg PO TID PRN PRN 04/06/19 Insulin Glargine,Hum.rec.anlog [Basaglar Kwikpen U-100] 60 unit SQ QHS 04/06/19 Lorazepam 0.5 mg PO BID PRN PRN 04/06/19 Metformin HCl 500 mg PO BID 04/06/19 Pantoprazole Sodium [Protonix] 40 mg PO DAILY 04/06/19 Potassium Chloride [K-Dur] 30 meq PO BID 04/06/19 Pregabalin 100 mg PO TID 04/06/19 Quetiapine Fumarate [Seroquel] 25 mg PO QHS 04/06/19 Sucralfate [Carafate] 1 gm PO DAILY 04/06/19 Venlafaxine HCl [Venlafaxine HCl ER] 75 mg PO DAILY 04/06/19 traZODone [Desyrel] 100 mg PO QHS 04/06/19 Furosemide 40 mg PO BID 04/25/19 Insulin Aspart [Novolog Flexpen] 0 units SUBCUT TIDCM 04/25/19 Loperamide [Imodium] 2 mg PO Q2H PRN PRN 04/25/19 Paliperidone Palmitate [Invega Sustenna] 234 mg IM Q30D 04/25/19 Guaifenesin [Mucinex] 600 mg PO BID 04/26/19 Azithromycin 250 mg PO DAILY 3 Days #3 tab 04/28/19 Prednisone See Taper PO DAILY #30 tab 04/28/19 Umeclidinium Brm/Vilanterol Tr [Anoro Ellipta 62.5-25 Mcg INH] 1 puff IH DAILY #1 blst.w.dev 04/28/19 The following prescriptions were given: Umeclidinium Brm/Vilanterol Tr [Anoro Ellipta 62.5-25 Mcg INH] 1 puff IH DAILY #1 blst.w.dev Transmission Status: Pending to [facility] Azithromycin 250 mg PO DAILY 3 Days #3 tab Transmission Status: Pending to [facility] Prednisone See Taper PO DAILY #30 tab Transmission Status: Pending to [facility] Primary Care Physician: DOMINIQUE GEORGE [Other] Please follow up with your Primary Care Physician in: 1 Week Test Results: Test results from this visit will be discussed in further detail at your follow- up appointment, if applicable. Please Follow Up With: Mathew Barillas MD When: As scheduled Proposed Discharge Date: 04/28/19
--- NOTE | 2019-04-28 11:16 | DS.PCM_ITS ---
Discharge Date and Diagnosis Date of Admission: 04/26/19 Date of Discharge: 04/28/19 - Primary Discharge Diagnosis 1. Acute on chronic hypoxic respiratory failure secondary to exacerbation of COPD 2. COPD exacerbation 3. Pneumonia RULED OUT 4. ISABELL 5. Tobacco dependence 6. Type 2 diabetes mellitus with peripheral neuropathy 7. Bipolar disorder/Anxiety/Depression 8. GERD - Secondary Discharge Diagnosis Chronic Problems (Last Updated 04/06/19 @ 21:11 by Jory Raines DO) COPD exacerbation (Chronic) Hospital Course and Treatment Imaging Results: Diagnostic Data Chest X-Ray 04/28/19 05:55 IMPRESSION: Mild degree of increased markings at the lung bases suggest bibasilar atelectasis slightly worse on the left side with blunting of both costophrenic angles. Electronically Signed: Bryan Sundar, at 10:52 EST , Service support , Operations: None Procedures: None Summary of Care Provided: The patient is a 59 year old F admitted 04/26/2019 due to shortness of breath. 1. Acute on chronic hypoxic respiratory failure secondary to exacerbation of COPD-on 3 L nasal cannula at baseline. Stable on chronic baseline requirements. 2. COPD exacerbation-respiratory panel negative. Prednisone taper at discharge. Continue home inhaler regimen. Complete course of azithromycin empirically. Patient has upcoming appointment to establish with [facility] pulmonary medicine, Dr. Barillas. 3. Community-acquired pneumonia-ruled out. Repeat chest x-ray without infiltrate. Afebrile. 4. ISABELL-continue CPAP regimen. 5. Tobacco dependence-encouraged tobacco cessation. 6. Type 2 diabetes mellitus with peripheral neuropathy-continue home regimen. 7. Bipolar disorder/Anxiety/Depression-continue Seroquel, Effexor. 8. GERD- continue PPI. General: - - Drowsy, no apparent distress HEENT: Atraumatic, PERRLA, EOMI, Normocephalic Oral: Dry Mucosa Neck: Supple, No JVD, Negative Carotid Bruits Lungs: Diminished, Wheezes Cardiovascular: Regular rate, Regular Rhythm, Normal S1, Normal S2, No murmurs Abdomen: Bowel Sounds Present, Soft, Non Tender, Non-Distended, Obese Extremities: No clubbing, No cyanosis, No edema, Capillary Refill Less than 3 Seconds Skin: No rashes, No breakdown Musculoskeletal: No Tenderness to Palpation of Joints or Extremities Neurological: Cranial nerves II-XII grossly intact, Neuro grossly intact Psych/Mental Status: Normal Affect, Appropriate Patient seen and examined prior to discharge. Physical assessment as noted above. Patient is stable for discharge with follow up recommendations as noted above. This patient was seen by SHEREEN Madrigal under the supervision of Dr. Abreu. - Physical Exam Vitals/I&O's: Vital Signs Temp Pulse Resp BP Pulse Ox 98.1 F 63 18 138/72 H 95 04/28/19 05:00 04/28/19 10:48 04/28/19 10:48 04/28/19 05:00 04/28/19 07:07 Oxygen Flow Rate (L/min) 3 Oxygen Delivery Method Nasal Cannula Weight: 250 lb 14.177 oz Body Mass Index (BMI) 45.8 Intake and Output for Last 24 Hours 04/26/19 04/27/19 04/28/19 23:59 23:59 23:59 Intake Total 1034 / 1081 2981 / 2981 240 / 240 Output Total 800 / 800 1450 / 1450 500 / 500 Balance 234 / 281 1531 / 1531 -260 / -260 Microbiology Past 72 Hours 04/25/19 23:42 Blood Culture (Wb) - Right Forearm Blood Culture - Preliminary No growth in 48 hours. 04/25/19 23:26 Blood Culture (Wb) - Anticubital Left Blood Culture - Prelimi nary No growth in 48 hours. 04/26/19 21:40 Mucosa - Nasopharyngeal Respiratory Panel (PCR) - Final 04/26/19 16:57 Interface Orders Streptococcus pneumoniae Antigen (M - Final 04/26/19 16:57 Urine, Clean Catch Legionella Antigen - Final 04/26/19 00:10 Mucosa - Nose Influenza Types A,B Direct FA (JULIETA) - Final Laboratory Results 04/27/19 11:35: POC Glucose 363 H 04/27/19 15:59: POC Glucose 319 H 04/27/19 21:44: POC Glucose 386 H 04/28/19 05:45: WBC 12.5 H, RBC 3.89 L, Hgb 11.6 L, Hct 35.5 L, MCV 91.3, MCH 29.8, MCHC 32.7, RDW Std Deviation 49.1 H, RDW Coeff of Da 14.6, Plt Count 262, MPV 9.5, Immature Gran % (Auto) 0.400, Neut % (Auto) 85.1 H, Lymph % (Auto) 9.0 L, [place] % (Auto) 5.4, Eos % (Auto) 0.0, Baso % (Auto) 0.1, Absolute Neuts (auto) 10.7 H, Absolute Lymphs (auto) 1.12, Nucleated RBC % 0 04/28/19 05:45: Sodium 134 L, Potassium 4.9, Chloride 98, Carbon Dioxide 33.0 H, Anion Gap 3 L, BUN 27 H, Creatinine 1.00, Estim Creat Clear Calc 48.50, Est GFR (MDRD) Af Amer 73, Est GFR (MDRD) Non-Af 61, BUN/Creatinine Ratio 27.0 H, Glucose 311 H, Calcium 8.6 04/28/19 06:29: POC Glucose 299 H Current Medications Albuterol/Ipratropium (Duoneb) 3 ml INHALATION Q4HWA.RT [facility] Last Admin: 04/28/19 10:47 Dose: 3 ml Documented by: Colestipol HCl (Colestid Tablet) 1 gm PO BID [facility] Last Admin: 04/28/19 09:48 Dose: 1 gm Documented by: Dextrose (D50w Syringe) 0 gm IV X1 PRN; Protocol PRN Reason: Hypoglycemia Enoxaparin Sodium (Lovenox) 40 mg SC DAILY [facility] Last Admin: 04/28/19 09:49 Dose: 40 mg Documented by: Furosemide (Lasix) 40 mg PO BID [facility] Last Admin: 04/28/19 09:48 Dose: 40 mg Documented by: Glucagon () 1 mg IM .X1 PRN PRN Reason: Hypoglycemia Guaifenesin (Mucinex) 1,200 mg PO BID [facility] Azithromycin 500 mg/ Dextrose 255 mls @ 250 mls/hr IV Q24H [facility] Last Infusion: 04/27/19 23:14 Dose: Infused Documented by: Insulin Glargine (Lantus ([facility])) 10 units SC DAILY [facility] Last Admin: 04/28/19 09:49 Dose: 10 units Documented by: Insulin Human Lispro (Humalog Kwikpen ([facility])) 0 unit SC ACHS [facility]; Protocol Last Admin: 04/28/19 06:30 Dose: 6 u Documented by: Lorazepam (Ativan) 0.5 mg PO BID PRN PRN PRN Reason: ANXIETY Methylprednisolone (Solu-Medrol) 40 mg IV Q8 [facility] Last Admin: 04/28/19 05:02 Dose: 40 mg Documented by: Pantoprazole Sodium (Protonix) 40 mg PO DAILY [facility] Last Admin: 04/28/19 09:49 Dose: 40 mg Documented by: Potassium Chloride (K-Dur) 30 meq PO BID [facility] Last Admin: 04/28/19 09:48 Dose: 30 meq Documented by: Pregabalin (Lyrica) 100 mg PO TID [facility] Last Admin: 04/28/19 05:02 Dose: 100 mg Documented by: Quetiapine Fumarate (Seroquel) 25 mg PO QHS [facility] Last Admin: 04/27/19 21:58 Dose: 25 mg Documented by: Sodium Chloride () 10 - 40 ml IV UD PRN PRN Reason: SALINE FLUSH Last Admin: 04/28/19 05:02 Dose: 10 ml Documented by: Trazodone HCl (Desyrel) 100 mg PO QHS [facility] Last Admin: 04/27/19 21:58 Dose: 100 mg Documented by: Venlafaxine HCl (Effexor Xr) 75 mg PO DAILY [facility] Last Admin: 04/28/19 09:48 Dose: 75 mg Documented by: Discharge Diet: Carb Control Diet Discharge Activity: Return to Normal Activity Call your doctor if you observe: Shortness of breath, Dizziness, Fainting spells, Chest pain Home Medications: Medications to take at Discharge Colestipol HCl 1 gm PO BID 04/06/19 Divalproex Ec 500 mg PO BID 04/06/19 Ibuprofen 600 mg PO TID PRN PRN 04/06/19 Insulin Glargine,Hum.rec.anlog [Basaglar Kwikpen U-100] 60 unit SQ QHS 04/06/19 Lorazepam 0.5 mg PO BID PRN PRN 04/06/19 Metformin HCl 500 mg PO BID 04/06/19 Pantoprazole Sodium [Protonix] 40 mg PO DAILY 04/06/19 Potassium Chloride [K-Dur] 30 meq PO BID 04/06/19 Pregabalin 100 mg PO TID 04/06/19 Quetiapine Fumarate [Seroquel] 25 mg PO QHS 04/06/19 Sucralfate [Carafate] 1 gm PO DAILY 04/06/19 Venlafaxine HCl [Venlafaxine HCl ER] 75 mg PO DAILY 04/06/19 traZODone [Desyrel] 100 mg PO QHS 04/06/19 Furosemide 40 mg PO BID 04/25/19 Insulin Aspart [Novolog Flexpen] 0 units SUBCUT TIDCM 04/25/19 Loperamide [Imodium] 2 mg PO Q2H PRN PRN 04/25/19 Paliperidone Palmitate [Invega Sustenna] 234 mg IM Q30D 04/25/19 Guaifenesin [Mucinex] 600 mg PO BID 04/26/19 Azithromycin 250 mg PO DAILY 3 Days #3 tab 04/28/19 Prednisone See Taper PO DAILY #30 tab 04/28/19 Umeclidinium Brm/Vilanterol Tr [Anoro Ellipta 62.5-25 Mcg INH] 1 puff IH DAILY #1 blst.w.dev 04/28/19 Following Prescrptions Were Given to Patient: Umeclidinium Brm/Vilanterol Tr [Anoro Ellipta 62.5-25 Mcg INH] 1 puff IH DAILY #1 blst.w.dev Transmission Status: Pending to [facility] Azithromycin 250 mg PO DAILY 3 Days #3 tab Transmission Status: Pending to [facility] Prednisone See Taper PO DAILY #30 tab Transmission Status: Pending to [facility] Primary Care Physician: DOMINIQUE GEORGE [Other] Please follow up with your Primary Care Physician in: 1 Week Please Follow Up With: Mathew Barillas MD When: As scheduled Disposition: Home Minutes spent on discharge:: 35 Patient Condition:: Stable Medical Necessity - Tobacco Use Smoking Status: Current every day smoker Tobacco Use: Cigarettes Meaningful Use Info Meaningful Use Diagnoses (Choose all that apply): None applicable
--- NOTE | 2019-04-28 11:43 | PHA.DC.MC ---
Pharmacy Service has performed discharge medication reconciliation and counseling for this patient. The patient's discharge medication list was reviewed for discrepancies and discrepancies were resolved. The patient was counseled on the following discharge medications and changes in medications for homegoing were reviewed. 1. AZITHROMYCIN 2. PREDNISONE 3. ANORO INHALER The Reason for Use, instructions for use, and potential side effects were reviewed for all new medications. The patient's questions regarding all of their medications were answered. The patient was able to verbally demonstrate an understanding of their discharge medications. Home Medications Colestipol HCl 1 gm PO BID 04/06/19 Divalproex Ec 500 mg PO BID 04/06/19 Ibuprofen 600 mg PO TID PRN PRN 04/06/19 Insulin Glargine,Hum.rec.anlog [Basaglar Kwikpen U-100] 60 unit SQ QHS 04/06/19 Lorazepam 0.5 mg PO BID PRN PRN 04/06/19 Metformin HCl 500 mg PO BID 04/06/19 Pantoprazole Sodium [Protonix] 40 mg PO DAILY 04/06/19 Potassium Chloride [K-Dur] 30 meq PO BID 04/06/19 Pregabalin 100 mg PO TID 04/06/19 Quetiapine Fumarate [Seroquel] 25 mg PO QHS 04/06/19 Sucralfate [Carafate] 1 gm PO DAILY 04/06/19 Venlafaxine HCl [Venlafaxine HCl ER] 75 mg PO DAILY 04/06/19 traZODone [Desyrel] 100 mg PO QHS 04/06/19 Furosemide 40 mg PO BID 04/25/19 Insulin Aspart [Novolog Flexpen] 0 units SUBCUT TIDCM 04/25/19 Loperamide [Imodium] 2 mg PO Q2H PRN PRN 04/25/19 Paliperidone Palmitate [Invega Sustenna] 234 mg IM Q30D 04/25/19 Guaifenesin [Mucinex] 600 mg PO BID 04/26/19 Azithromycin 250 mg PO DAILY 3 Days #3 tab 04/28/19 Prednisone See Taper PO DAILY #30 tab 04/28/19 Umeclidinium Brm/Vilanterol Tr [Anoro Ellipta 62.5-25 Mcg INH] 1 puff IH DAILY #1 blst.w.dev 04/28/19
--- NOTE | 2019-04-28 12:00 | NURSING ---
pt needing 4l with exertion and spo2 90-91% on. at 3l dropped to 87%. cm aware
--- NOTE | 2019-04-28 12:26 | CASEMGMT ---
Addendum entered by Abby Allred 04/28/19 13:34: Pt had told this RN CM that everything was supposed to sent to [facility] previously and is frustrated that it was not transferred. This RN CM advised pt that would call [facility] to make sure that they are aware that everything was to be transferred to them, pt voices understanding and gratitude at this time. New testing faxed to [facility] at this time with order, facesheet, and d/c summary at this time. Call to [facility] to update on pt's info being transferred to them and Lindsay voices understanding. This RN CM also advised her that this was supposed to be done previously and that pt is upset that it was not completed, voices understanding. Jose ALANIZ CM Original Note: Call to [facility] and per Lindsay, pt is set up through the [facility] and they are unable to access their files. Call to [facility] and she is updated on increased need at this time. Per rep, she was supposed to transfer pt over to [facility] and states will facilitate transfer at this time. She would still like new order faxed to [place] and then will forward all to [place]. Pt updated on all at this time, voices understanding. Pt voices no further questions/concerns/needs at this time. Pt is anxious to leave as family is down in car awaiting pt. Jose ALANIZ CM
--- NOTE | 2019-04-28 12:35 | NURSING ---
cm in and o2 turned down to 2l as ordered for at home. pt up in chair with no sign of distress. o2 on 2l at rest was 92-93%. up to amb in room on 2l and desated to 88% then 86% once when was telling story about dogs while ambulating. o2 up to 3l when up and was 89%. back into chair and was 94 in 2 minutes.
[2019-04-28 12:50] LABS: Bedside Glucose 379 mg/dL (70-110)
--- NOTE | 2019-04-29 16:01 | CASEMGMT ---
Case Management DC F/u Call: DC Date: 04/28/19 DC Diagnosis: 1. Acute on chronic hypoxic respiratory failure secondary to exacerbation of COPD 2. COPD exacerbation 3. Pneumonia RULED OUT 4. ISABELL 5. Tobacco dependence 6. Type 2 diabetes mellitus with peripheral neuropathy 7. Bipolar disorder/Anxiety/Depression 8. GERD DC Disposition: Home Lace/Strata: 03/22 Called patient cell phone listed on demographics, answered and this literary writer introduced self and role. Patient states that she is doing ok, confirmed filled medications and taking them. Denies issues, questions, or concerns with [facility], Medications or f/u. [facility] has an appointment with Pulm Dr Barillas in May, pcp appointment 05/04/19 at 1105. [facility] everything is situated with her Home oxygen through [facility]. Thanked patient for care choosing [facility] for care and ended conversation. Monse Carr, RNCM
== END 2019-04-28 12:48 | disposition home or self-care (01) | DRG 189 ==
LOC: ED 04-26 01:07 → PCU 04-26 02:20
PROVIDERS: Internal Medicine; Admitting Provider Family Medicine; Emergency Provider Emergency Medicine; Visit Provider Internal Medicine
DX: J96.21 Acute and chronic respiratory failure with hypoxia (principal); J44.1 Chronic obstructive pulmonary disease with (acute) exacerbation; Z68.42 Body mass index [BMI] 45.0-49.9, adult; Z99.81 Dependence on supplemental oxygen; E11.42 Type 2 diabetes mellitus with diabetic polyneuropathy; G47.33 Obstructive sleep apnea (adult) (pediatric); F41.9 Anxiety disorder, unspecified; F31.9 Bipolar disorder, unspecified; K21.9 Gastro-esophageal reflux disease without esophagitis; Z79.4 Long term (current) use of insulin; F17.210 Nicotine dependence, cigarettes, uncomplicated; E66.01 Morbid (severe) obesity due to excess calories
CPT/HCPCS: 36415; 36600; 71045; 71046; 80048; 82803; 82962; 83605; 83735; 83880; 84484; 85025; 87040; 87449; 87633; 87804; 93005; 94002; 94003; 94640; 99251; 99285; J7030; A4216; G0463; J0295

== ENCOUNTER 2019-08-31 14:06 | Inpatient (IN) | payer MEDICARE, SELFPAY ==
[2019-04-26 02:18] VITALS: BMI 45.8
[2019-08-31] VITALS (14 sets, daily range): BP systolic 95–170; BP diastolic 49–89; PULSE 68–100; RESP 12–26; TEMP 36.1–37.1; O2SAT 92–100; BMI 43.4; BMI 42.5
--- NOTE | 2019-08-31 14:21 | RAD_ITS ---
STUDY: X-RAY CHEST REASON FOR EXAM: Female, 59 years old. Pt was 70% on room air and increased weakness with cough. Pt is normally on 3l of o2 and has not had it on in awhile. TECHNIQUE: Single AP portable view of the chest. COMPARISON: Comparison is made with prior study dated January 27, 2019. FINDINGS: EKG electrodes are seen. The lungs are clear and expanded. There is no demonstrated pleural abnormality. There is borderline cardiomegaly. Normal mediastinum and felipa. Normal visualized pulmonary arteries. Normal visualized aortic arch and descending thoracic aorta. There are diffuse degenerative changes of the visualized thoracic spine. Prior fusion in the lower cervical spine and vertebroplasty of an upper lumbar vertebrae. There is no demonstrated abnormality of the visualized soft tissue structures of the upper abdomen. RAD/Chest 1 View (Portable) IMPRESSION: Borderline cardiomegaly. The lungs are clear. Electronically Signed: Bryan Kwok, at 15:44 EDT , Service support ,
--- NOTE | 2019-08-31 14:21 | EKG12_ITS ---
Test Reason : SOB Blood Pressure : / mmHG Vent. Rate : 097 BPM Atrial Rate : 097 BPM P-R Int : 144 ms QRS Dur : 080 ms QT Int : 344 ms P-R-T Axes : 065 055 039 degrees QTc Int : 436 ms Normal sinus rhythm Normal ECG Confirmed by DEACON LEIJA, ERMA ([id number]), editor city WALTER CARL ([id number]) on 09/02/2019 8:47:59 AM Referred By: ERIC Confirmed By:ERMA WORTHY MD
[2019-08-31 14:42] LABS: Absolute Lymphocyte Count 1.73 X10^3/uL (0.83-4.51); Absolute Neutrophil Count 4.9 X10^3/uL (2.0-7.7); Basophil# 0.02 X10^3/uL; Basophil% 0.3 % (0-1); Eosinophil# 0.06 X10^3/uL; Eosinophils% 0.8 % (0-5); Hematocrit 37.7 % (37-47); Hemoglobin 11.9 g/dL (12.0-15.0); Lymphocyte # 1.73 X10^3/ul (4.0); Lymphocyte % 23.9 % (19-41); Mean Corp Hgb Conc 31.6 g/dL (32-36); Mean Corpuscular Hgb 31.6 pg (27.0-32.0); Mean Platelet Vol. 9.8 fl (6.2-12.0); Monocyte# 0.49 X10^3/uL; Monocyte% 6.8 % (0-10); NRBC Flagged by Analyzer 0 % (0-5); Neutrophil # 4.88 X10^3/uL (2.7-7.7); Neutrophil % 67.4 % (47-70); Platelet Count 169 K/mm3 (150-450); RBC Distribution Width CV 13.2 % (11.6-14.6); RBC Distribution Width SD 48.2 fl (35.1-43.9); Red Blood Count 3.77 M/mm3 (4.2-5.4); White Blood Count 7.2 K/mm3 (4.4-11.0)
[2019-08-31] MEDS: MethylPREDNISolone 125 MG/2 ML Vial IV (14:42)
--- NOTE | 2019-08-31 14:46 | CT_ITS ---
STUDY: CT BRAIN WITHOUT CONTRAST REASON FOR EXAM: Female, 59 years old. COPD, HAS NOT BEEN WEARING HER O2, INCREASED WEAKNESS, COUGH, DB RADIATION DOSAGE (If Supplied By Facility): CTDIvol = ( 44.99 ) mGy, DLP = ( 762.36 ) mGycm TECHNIQUE: Transaxial CT imaging of the brain was performed without administration of intravenous contrast material. Individualized dose optimization techniques were used for this CT. COMPARISON: No relevant priors. FINDINGS: Normal soft tissue structures. Normal calvarium. There is mild cerebral atrophy with widening of the extra-axial spaces and ventricular dilatation. Normal white matter tracts of the cerebral hemispheres. Normal basal ganglia and thalami. Normal brainstem. Normal cerebellum. There is no intracranial hemorrhage. There are no findings of an acute ischemic infarction. Normal visualized paranasal sinuses. CT/Brain/Head without Contrast IMPRESSION: Chronic involutional changes of the brain. Electronically Signed: Bryan Kwok, at 15:45 EDT , Service support ,
--- NOTE | 2019-08-31 14:48 | ED.DCSUM_ITS ---
- ER Visit Summary Date of Service: 08/31/19 Chief Complaint: [Shortness of breath, falls, generalized weakness] History of Present Illness: The patient is a 59 F [presents to the emergency department via EMS. Family called EMS because she had fallen twice today. Patient was found on the floor on EMS arrival. Patient is supposed to be on 3 L O2 at all times but she did not have her oxygen on and her oxygen level was in the 70s on EMS arrival. There is no evidence of injury or trauma. Patient is a poor historian but states that she has been feeling short of breath. She denies any chest pain. She does have history of COPD as well as anxiety, depression, GERD, and diabetes. Patient states she does not walk very well on her own. She denies abdominal pain. She denies urinary symptoms.] Patient's family member was contacted who stated that patient had recent admission earlier this month in [place] and was intubated and tested for novel coronavirus and was negative. Physical Examination: [HEENT-PERRLA, EOMI. Cranial nerves II through XII grossly intact. TMs clear. Mucous membranes moist. No adenopathy. No external evidence of trauma to her head. No C-spine tenderness on palpation. Good range of motion that is painless. Patient is somewhat somnolent and easily falls asleep. Cardiovascular-regular rate and rhythm with a 3 out of 6 stock ejection murmur noted. Lungs-coarse rhonchi bilaterally. Patient has some faint expiratory wheezes noted. No excessive muscle use or retractions. Abdomen-normoactive bowel sounds, soft, nontender, no rebound or rigidity, no peritoneal signs. Extremities-intact ?4, normal range of motion, normal pulses, atraumatic] Test Results: [EKG obtained arrival showed a sinus rhythm with a ventricular rate of [address] changes noted. Blood gas obtained on 3 L showed a pH of 7.336, CO2 of 68, P O2 of 126, bicarb of 36, and satting 98% on her 3 L. CBC with differential obtained showing a 7.2, hemoglobin 11.9, hematocrit 38, platelets 169.] Chemistries were unremarkable. Troponin was less than 0.015. Chest x-ray showed nothing acute. CT scan of the brain without contrast showed chronic involutional changes. Emergency Department Course and Treatment: [Patient was placed on director underwriter sales on arrival. Patient was placed on nasal cannula O2. Patient was started on BiPAP.] Treatment Plan: [Admit] Disposition: [Admit] Impression: [Hypercapnia COPD Falls Generalized weakness] This note was generated with Muzicall dictation software. It may contain incorrect words, spelling, and punctuation that were not noted in review of the chart prior to signing ED Disposition - Plan for ED Patient: Referrals: DOMINIQUE GEORGE [Other]
--- NOTE | 2019-08-31 14:54 | CPS ---
Critical CO2 value, Dr. Hernandez notified
[2019-08-31 15:01] LABS: Anion Gap 1 (5-15); BUN 11 mg/dL (7-18); BUN/Creat Ratio 13.9 RATIO (10-20); Calcium,Total 9.1 mg/dL (8.5-10.1); Chloride 97 mmol/L (98-107); Creatinine, Serum 0.79 mg/dL (0.55-1.02); EST Glomerular Filtration Rate 79 mL/min (>60); Est Glom Filt Rate - Afr Amer 96 mL/min (>60); Estimated Creatinine Clearance 61.39 ml/min; Glucose 132 mg/dL (74-106); Potassium 4.1 mmol/L (3.5-5.1); Sodium Level 134 mmol/L (136-145)
[2019-08-31 15:01] LABS: Base Excess 11 mmol/L (-2 to +2); Bicarbonate 36.5 mmol/L (22-26); PO2 126 mmHG (75-100); SO2 98 % (95-99); Total Carbon Dioxide 39 mmol/L; pCO2 68.3 mmHg (35-45); pH 7.34 (7.35-7.45)
[2019-08-31 15:02] LABS: Blood Gas Specimen Type ART; O2 Delivery Device Nasal Can; SITE R BRACHIAL; Time Given 1448
[2019-08-31 15:03] LABS: Bacteria 0 SEEN /hpf (None Seen); Mucous, Urine 0 SEEN /hpf (<or=2+); Red Blood Cells-Urine 0 SEEN /hpf (0-5); Squamous Epithelial Cells - UA 0 SEEN /hpf (5-10); White Blood Cells 0 SEEN /hpf (0-5)
[2019-08-31 15:04] LABS: Lactic Acid 1.7 mmol/L (0.4-1.9)
[2019-08-31 15:05] LABS: Color, Urine Yellow (Yellow); Glucose, Dipstick Normal (Normal); Ketone-Dipstick 15 mg/dl (Negative); Leukocyte Esterase-Dipstick Negative /ul (Negative); Nitrite-Dipstick Negative (Negative); Occult Blood-Urine Negative /ul (Negative); Protein-Dipstick Negative (Negative); Urine Bilirubin Dipstick Negative (Negative); Urine Clarity Clear (Clear); Urine Urobilinogen Normal (Normal)
--- NOTE | 2019-08-31 16:29 | HP.PCM_ITS ---
Problem List (1) COPD exacerbation Status: Acute (2) Metabolic encephalopathy Status: Acute (3) Acute and chronic respiratory failure with hypercapnia Status: Acute (4) Bipolar disorder Status: Chronic (5) Anxiety and depression Status: Chronic (6) GERD (gastroesophageal reflux disease) Status: Chronic (7) Chronic respiratory failure Status: Chronic (8) Obstructive sleep apnea Status: Chronic (9) COPD (chronic obstructive pulmonary disease) Status: Chronic (10) Type 2 diabetes mellitus Status: Chronic History of Present Illness Date of Admission: 08/31/19 Chief Complaint: Fall, shortness of breath. The patient is a 59 year old F with past medical history as mentioned above presented to the emergency room by squad because of fall and shortness of breath. At this time, patient is sleepy and lethargic and was not able to provide detailed history. I gathered information from the ER physician, nursing staff and patient's TERESA Austin. Reportedly, patient was found on the floor by the EMS upon arrival, did not have her oxygen on and her pulse ox was in the 70s when the paramedics arrived to her house. Patient was able to answer couple of simple questions. She did mention that she is not doing well for the last several days. She complained of shortness of breath. Denied any pain. I spoke with her POA Geovanna over the phone at [phone] and Geovanna stated that she is not sure of what happened today. She mentioned that the patient has been not compliant with her oxygen and BiPAP at home and she started to smoke again. Geovanna stated that patient was admitted to a hospital in [place] not in [place] in June 2019, had CO2 retention and aspiration pneumonia, was intubated and remained on mechanical ventilation for couple of days. Geovanna stated that patient had COVID-19 testing done in the beginning of this month which was negative. Patient history of chronic respiratory failure, secondary to COPD and obstructive sleep apnea and she has been on oxygen at 3 L at baseline and apparently, she is noncompliant. She will history of obstructive sleep apnea and she is supposed to be on BiPAP and also she is not compliant as well. She will history of type 2 diabetes mellitus which seemed to be under control with NovoLog and glargine insulin as well as metformin, hemoglobin A1c was 6.7% on March,. In the emergency department, patient was sleepy and lethargic, afebrile, initial blood pressure was low and then became high, was dyspneic and tachypneic, pulse ox was 100% on 3 L. Routine blood work was unremarkable. Lactic acid was normal. EKG revealed normal sinus rhythm without evidence of cardiac arrhythmias or acute skin changes. Troponin was negative. Lactic acid was normal. Urinalysis showed no evidence of infection. Chest x- ray showed mild cardiomegaly, no acute findings. CT scan brain showed no acute infarct or hemorrhage. She is being admitted for acute on chronic hypercapnic respiratory failure likely due to COPD exacerbation secondary to noncompliance and also admitted for encephalopathy which is likely due to CO2 retention. Past Medical History Past Medical History (Chronic Problems): Chronic Problems (Last Updated 04/06/19 @ 21:[address] Jory Raines DO) Bipolar disorder (Chronic) Anxiety and depression (Chronic) GERD (gastroesophageal reflux disease) (Chronic) Chronic respiratory failure (Chronic) Obstructive sleep apnea (Chronic) COPD (chronic obstructive pulmonary disease) (Chronic) Type 2 diabetes mellitus (Chronic) Medical History: Medical History (Last Updated 04/06/19 @ 21:[address] Jory Raines DO) Anxiety F41.9 Depression F32.9 Diabetes E11.9 GERD (gastroesophageal reflux disease) K21.9 Morbid obesity E66.01 Neuropathy G62.9 ISABELL (obstructive sleep apnea) G47.33 COPD (chronic obstructive pulmonary disease) J44.9 Allergies cephalexin [From Keflex] Allergy (Verified 08/31/19 14:12) Angioedema ciprofloxacin [From Cipro] Allergy (Verified 08/31/19 14:12) Angioedema doxycycline Allergy (Verified 08/31/19 14:12) Unknown sulfamethoxazole [From Bactrim] Allergy (Verified 08/31/19 14:12) Angioedema trimethoprim [From Bactrim] Allergy (Verified 08/31/19 14:12) Angioedema bees Adverse Reaction (Uncoded 08/31/19 14:12) Hives seafood Adverse Reaction (Uncoded 08/31/19 14:12) Hives Home Medications: Ambulatory Orders Medication Instructions Recorded Colestipol HCl 1 gm PO BID 04/06/19 Divalproex Ec 500 mg PO BID 04/06/19 Ibuprofen 600 mg PO TID PRN PRN 04/06/19 Insulin Glargine,Hum.rec.anlog 60 unit SQ QHS 04/06/19 [Basaglar Kwikpen U-100] Lorazepam 0.5 mg PO BID PRN PRN 04/06/19 Metformin HCl 500 mg PO BID 04/06/19 Pantoprazole Sodium [Protonix] 40 mg PO DAILY 04/06/19 Potassium Chloride [K-Dur] 30 meq PO BID 04/06/19 Pregabalin 100 mg PO TID 04/06/19 Quetiapine Fumarate [Seroquel] 25 mg PO QHS 04/06/19 Sucralfate [Carafate] 1 gm PO DAILY 04/06/19 Venlafaxine HCl [Venlafaxine HCl 75 mg PO DAILY 04/06/19 ER] traZODone [Desyrel] 100 mg PO QHS 04/06/19 Furosemide 40 mg PO BID 04/25/19 Insulin Aspart [Novolog Flexpen] 0 units SUBCUT TIDCM 04/25/19 Loperamide [Imodium] 2 mg PO Q2H PRN PRN 04/25/19 Paliperidone Palmitate [Invega 234 mg IM Q30D 04/25/19 Sustenna] Guaifenesin [Mucinex] 600 mg PO BID #60 tab 04/28/19 Prednisone See Taper PO DAILY #30 tab 04/28/19 Umeclidinium Brm/Vilanterol Tr 1 puff IH DAILY #1 blst.w.dev 04/28/19 [Anoro Ellipta 62.5-25 Mcg INH] Surgical History: noncontributory Psychiatric History: Anxiety, Bipolar, Depression 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 Jory Raines DO) Other unknown History Items: No pertinent history Paternal Family History: Family History (Last Updated 04/06/19 @ 21:[address] Jory Raines DO) Other unknown History Items: No pertinent history Review of Systems Constitutional: Reports: Weakness. Denies: Anorexia, Chills, Fever Eyes: Denies: Blurred vision, Double vision, Drainage, Redness HEENT: Denies: Difficulty Hearing, Ear Pain, Nasal Congestion, Sore Throat Cardiovascular: Reports: Chest Pain, Light Headedness, Palpitations, Syncope Respiratory: Reports: Shortness of Breath. Denies: Cough, Pleuritic Pain, Sputum production Gastrointestinal: Denies: Abdominal Pain, Constipation, Diarrhea, Nausea, Vomiting Genitourinary: Denies: Dysuria, Frequency, Hematuria Musculoskeletal: Denies: Arm Pain, Back Pain, Foot Pain Skin: Denies: Dryness, Rash Neurological: Denies: Balance problems, Double vision, Change in Speech, Focal weakness, Incoordination Psychiatric: Reports: Anxiety, Depression Endocrine: Denies: Change in Body Habitus, Polydipsia, Polyuria VTE Information - Inpt Only VTE Present on Admission: No VTE Mechan Device Prophylaxis: None VTE Pharm Prophylaxis ordered?: Yes Patient Problems: Active and Suspected Problems (Last Updated 04/06/19 @ 21:[address] Jory Raines, DO) COPD exacerbation (Acute) Metabolic encephalopathy (Acute) Acute and chronic respiratory failure with hypercapnia (Acute) - Physical Exam Vitals/I&O's: Vital Signs Temp Pulse Resp BP Pulse Ox 98.4 F 89 19 H 167/85 H 99 08/31/19 15:16 08/31/19 16:01 08/31/19 16:01 08/31/19 15:16 08/31/19 16:01 Oxygen Flow Rate (L/min) 3 Oxygen Delivery Method Room Air Weight: 237 lb 3.478 oz Body Mass Index (BMI) 43.4 General: Alert, - - Sleepy, lethargic, arousable. Moderately short of breath. HEENT: Atraumatic, PERRLA, EOMI, Normocephalic Oral: Moist Mucosa, No Gingival or Mucosal Lesions/ Ulcerations Neck: Supple, No JVD, Negative Carotid Bruits, Trachea Midline, Thyroid Normal Size and Texture Lungs: No wheeze, No rales, Diminished, Rhonchi, Short of Breath, - - Markedly decreased breath sounds bilateral, rhonchi. Cardiovascular: Regular rate, Regular Rhythm, Normal S1, Normal S2, PMI Normal Abdomen: Bowel Sounds Present, Soft, Non Tender, Non-Distended, No Hepato- splenomegaly, Obese Extremities: No clubbing, No cyanosis, Edema - Trace edema. Skin: No rashes, No breakdown Lymphatic: No Cervical, Supraclavicular, or Inguinal Adenopathy Neurological: Cranial nerves II-XII grossly intact, Neuro grossly intact Psych/Mental Status: Appropriate, Flat Affect Laboratory Results 08/31/19 14:30: WBC 7.2, RBC 3.77 L, Hgb 11.9 L, Hct 37.7, MCV 100.0 H, MCH 31.6, MCHC 31.6 L, RDW Std Deviation 48.2 H, RDW Coeff of Da 13.2, Plt Count 169, MPV 9.8, Immature Gran % (Auto) 0.800, Neut % (Auto) 67.4, Lymph % (Auto) 23.9, Tripp % (Auto) 6.8, Eos % (Auto) 0.8, Baso % (Auto) 0.3, Absolute Neuts (auto) 4.9, Absolute Lymphs (auto) 1.73, Nucleated RBC % 0 08/31/19 14:30: Sodium 134 L, Potassium 4.1, Chloride 97 L, Carbon Dioxide 36.0 H, Anion Gap 1 L, BUN 11, Creatinine 0.79, Estim Creat Clear Calc 61.39, Est GFR (MDRD) Af Amer 96, Est GFR (MDRD) Non-Af 79, BUN/Creatinine Ratio 13.9, Glucose 132 H, Calcium 9.1, Troponin I < 0.015 08/31/19 14:30: Lactic Acid 1.7 08/31/19 14:48: Specimen Type ART, Sample Site R BRACHIAL, pH 7.34 L, Bicarbonate Actual 36.5 H, POC Total CO2 39, Base Excess 11 H, O2 Saturation 98, ABG pCO2 68.3 H*, ABG pO2 126 H, O2 Delivery Device Nasal Can, Liter Flow 3.0, Blood Gas Notified Whom ED , Blood Gas Notified Time 1448 08/31/19 14:50: Urine Color Yellow, Urine Clarity Clear, Urine pH 7.0, Ur Specific [place] 1.010, Urine Protein Negative, Urine Glucose (UA) Normal, Urine Ketones 15 H, Urine Occult Blood Negative, Urine Nitrite Negative, Urine Bilirubin Negative, Urine Urobilinogen Normal, Ur Leukocyte Esterase Negative, Urine RBC 0 SEEN, Urine WBC 0 SEEN, Ur Squamous Epith Cells 0 SEEN, Urine Bacteria 0 SEEN, Urine Mucus 0 SEEN Clinical Impression(s) from Imaging Studies Chest X-Ray 08/31/19 14:21 IMPRESSION: Borderline cardiomegaly. The lungs are clear. Electronically Signed: Bryan Kwok, at 15:44 EDT , Service support , Brain CT 08/31/19 14:46 IMPRESSION: Chronic involutional changes of the brain. Electronically Signed: Bryan Kwok, at 15:45 EDT , Service support , Assessment/Plan All Active Problems (Last Updated 04/06/19 @ 21:[address] Jory Raines DO) COPD exacerbation (Acute) Metabolic encephalopathy (Acute) Acute and chronic respiratory failure with hypercapnia (Acute) This is a 59 years old female patient presented to the emergency room because of shortness of breath and frequent falls, found to have acute on chronic hypercarbic respiratory failure attributed to COPD exacerbation, noncompliance to oxygen and BiPAP at home and also found to have acute encephalopathy likely metabolic. #1 acute on chronic hypercapnic respiratory failure: Probably due to acute COPD exacerbation, noncompliance with oxygen and BiPAP as well. Chest x-ray showed no acute findings. EKG was unremarkable. Troponin was negative. ABG revealed pH of 7.34, PCO2 of 68 and PO2 of 126. Reportedly according to the patient's POA, patient tested negative for coronavirus beginning of this month when she was admitted to the hospital and [place]. Plan: Admit to PCU, cardiac monitoring, continue BiPAP, bronchodilators, IV antibiotics, chest physio therapy, incentive spirometer, aspiration precautions, respiratory panel for viruses, repeat CBC and BMP tomorrow morning, PT OT evaluation and treatment. #2 acute COPD exacerbation: Chest x-ray reviewed as above. Plan for IV steroids, IV antibiotics, DuoNeb every 4 hours, albuterol PRN, chest physiotherapy, continue BiPAP as above. #3 metabolic encephalopathy: Likely because of CO2 retention. CT scan brain showed no acute findings. Patient is lethargic but arousable. No focal deficit. Plan to treat underlying etiology. #4 type 2 diabetes mellitus: ADA diet, Accu-Cheks, insulin sliding scale, continue home doses of NovoLog and glargine insulin. #5 anxiety/depression/bipolar disorder: Continue home medications when patient is fully awake and able to swallow safely. #6 COPD/chronic respiratory failure: With acute exacerbation as above. Plan as above. #7 obstructive sleep apnea: She is on BiPAP for now, continue. #8 GERD: Continue PPI. #9 CODE STATUS: Full code. I spoke with the patient's POA Geovanna at [phone]. Geovanna stated that patient is a full code at this time and plan if the patient required CPR and intubation, they would keep her on ventilation if needed for a week and then family will decide. #10 DVT prophylaxis: Subcu Lovenox. This note was generated with Spring[employer] dictation software. It may contain incorrect words, spelling, and punctuation that were not noted in checking the note before signing. Inpatient E&M: 19423 Init Hosp L3
[2019-08-31] MEDS: Insulin Lispro 100 UNIT/ML INSULN.PEN SC ×2 (18:37→23:57)
[2019-08-31 18:40] LABS: Bedside Glucose 195 mg/dL (70-110)
[2019-08-31] MEDS: Ipratropium/Albuterol Sulfate 3 ML AMPUL.NEB INHALATION (18:40)
--- NOTE | 2019-08-31 20:53 | CPS ---
BiPAP IPAP increased to 14 for decreased tidal volumes on IPAP of 12. These episodes of decreased tidal volumes were seen while patient was in a deep sleep. Tidal volumes were 200-250 and were improved with change. RN aware of change to BiPAP.
[2019-09-01] VITALS (17 sets, daily range): BP systolic 133–161; BP diastolic 67–87; PULSE 74–97; RESP 12–21; TEMP 36.6–37.1; O2SAT 94–100
[2019-09-01 00:05] LABS: Bedside Glucose 249 mg/dL (70-110)
[2019-09-01] MEDS: Ipratropium/Albuterol Sulfate 3 ML AMPUL.NEB INHALATION ×6 (03:31→22:55)
[2019-09-01] MEDS: Insulin Lispro 100 UNIT/ML INSULN.PEN SC ×3 (06:17→17:25)
[2019-09-01 06:56] LABS: Bedside Glucose 217 mg/dL (70-110)
[2019-09-01 07:12] LABS: Absolute Lymphocyte Count 0.88 X10^3/uL (0.83-4.51); Absolute Neutrophil Count 3.3 X10^3/uL (2.0-7.7); Basophil# 0.01 X10^3/uL; Basophil% 0.2 % (0-1); Hematocrit 36.5 % (37-47); Hemoglobin 12.1 g/dL (12.0-15.0); Lymphocyte # 0.88 X10^3/ul (4.0); Mean Corp Hgb Conc 33.2 g/dL (32-36); Mean Corpuscular Hgb 31.7 pg (27.0-32.0); Mean Corpuscular Volume 95.5 fL (81-99); Mean Platelet Vol. 9.4 fl (6.2-12.0); Monocyte# 0.11 X10^3/uL; Monocyte% 2.5 % (0-10); NRBC Flagged by Analyzer 0 % (0-5); Neutrophil # 3.34 X10^3/uL (2.7-7.7); Neutrophil % 76.2 % (47-70); Platelet Count 159 K/mm3 (150-450); RBC Distribution Width CV 12.6 % (11.6-14.6); RBC Distribution Width SD 44.3 fl (35.1-43.9); Red Blood Count 3.82 M/mm3 (4.2-5.4); White Blood Count 4.4 K/mm3 (4.4-11.0)
[2019-09-01 07:48] LABS: Anion Gap 7 (5-15); BUN 14 mg/dL (7-18); Calcium,Total 9.1 mg/dL (8.5-10.1); Chloride 94 mmol/L (98-107); Creatinine, Serum 0.67 mg/dL (0.55-1.02); EST Glomerular Filtration Rate 97 mL/min (>60); Est Glom Filt Rate - Afr Amer 117 mL/min (>60); Estimated Creatinine Clearance 72.39 ml/min; Glucose 222 mg/dL (74-106); Sodium Level 134 mmol/L (136-145)
--- NOTE | 2019-09-01 09:20 | CASEMGMT ---
KATTY PETERSON assessment: Face to Face with patient for initial transition planning/care coordination assessment. RN NICHOLAS introduced self and role at [facility], pt voices understanding and consents to assessment at this time. Pt is sitting up in bed with bipap in place in no distress at this time. Pt is A/Ox4 at this time but is slow to answer some questions. Care providers, pharmacy, and demographics verified/updated at this time. Presentation: Pt was 70% RA and increased weakness w/ cough-pt is supposed to be on 3liters at home Admitting dx: Acute chronic resp failure/COPD exac PCP: Yordan Specialists: Pt states does see a concrete mixer but cannot remember name at this time. [facility]erred [facility]: [facility] Prescription Benefit: Hum[employer] Living Will/HPOA: Pt states does not have LW/HPOA and declines info at this time. LNOK: Kristina Oleary, isaac Living Arrangements: Pt states lives with niece, Kristina, in a house with 15 steps to 2nd story and states some concerns at times with going upstairs. Pt states niece helps with ADL's, if needed. Transportation: Pt states niece drives her and states no transportation concerns at this time. DME/HHC: Pt states has the following DME: cane, walker, cpap, and 3liters home oxygen thru [facility]. Pt states no need for any further DME at this time. Pt states has had HHC and SNF in the past. Pt states no concerns with going home at time of discharge. Pt states is disabled. Pt states smokes about a pack/day and does not drink ETOH. Pt states no further concerns/needs at this time. CM to follow PT/OT evals and for any further discharge planning/needs. Advised pt to ask for CM if any further questions/concerns/needs arise, voices understanding. Pt Goal: Home Plan: TBD, pending PT/OT evals. [place] KATTY PETERSON
[2019-09-01] MEDS: Enoxaparin 40 MG/0.4 ML Syringe SC (10:26)
[2019-09-01] MEDS: Azithromycin 250 MG Tablet 500 MG PO (10:27)
[2019-09-01 12:40] LABS: Bedside Glucose 307 mg/dL (70-110)
[2019-09-01] MEDS: Nystatin Powder 15gm Bottle 1 APPLIC TOPICAL ×2 (12:56→21:19)
--- NOTE | 2019-09-01 13:00 | PN_ITS ---
<Christine Tineo - Last Filed: 09/01/19 13:08> Patient Problems: Active and Suspected Problems (Last Updated 04/06/19 @ 21:[address] Jory Raines DO) COPD exacerbation (Acute) Metabolic encephalopathy (Acute) Acute and chronic respiratory failure with hypercapnia (Acute) Subjective: Patient seen and examined. Drowsy this morning, BiPAP in place. Reports improvement in breathing. Denies fever, chills. - Physical Exam Vitals/I&O's: Vital Signs Temp Pulse Resp BP Pulse Ox 98.4 F 76 21 H 144/77 H 98 09/01/19 10:23 09/01/19 11:08 09/01/19 11:08 09/01/19 10:23 09/01/19 10:23 Oxygen Flow Rate (L/min) 3 Oxygen Delivery Method Nasal Cannula Weight: 232 lb 3.195 oz Body Mass Index (BMI) 42.5 Intake and Output for Last 24 Hours 08/30/19 08/31/19 09/01/19 23:59 23:59 23:59 Intake Total 495 / 495 0 / 0 Output Total 700 / 700 650 / 650 Balance -205 / -205 -650 / -650 General: Oriented x3, Cooperative, No apparent distress HEENT: Atraumatic, PERRLA, EOMI, Normocephalic Oral: Dry Mucosa Neck: Supple, No JVD, Negative Carotid Bruits Lungs: Diminished, Rhonchi Cardiovascular: Regular rate, Regular Rhythm, Normal S1, Normal S2, No murmurs Abdomen: Bowel Sounds Present, Soft, Non Tender, Non-Distended Extremities: No clubbing, No cyanosis, No edema, Capillary Refill Less than 3 Seconds Skin: No rashes, No breakdown Musculoskeletal: No Tenderness to Palpation of Joints or Extremities Neurological: Cranial nerves II-XII grossly intact, Neuro grossly intact Psych/Mental Status: Flat Affect Laboratory Results 08/31/19 14:30: WBC 7.2, RBC 3.77 L, Hgb 11.9 L, Hct 37.7, MCV 100.0 H, MCH 31.6, MCHC 31.6 L, RDW Std Deviation 48.2 H, RDW Coeff of Da 13.2, Plt Count 169, MPV 9.8, Immature Gran % (Auto) 0.800, Neut % (Auto) 67.4, Lymph % (Auto) 23.9, [place] % (Auto) 6.8, Eos % (Auto) 0.8, Baso % (Auto) 0.3, Absolute Neuts (auto) 4.9, Absolute Lymphs (auto) 1.73, Nucleated RBC % 0 08/31/19 14:30: Sodium 134 L, Potassium 4.1, Chloride 97 L, Carbon Dioxide 36.0 H, Anion Gap 1 L, BUN 11, Creatinine 0.79, Estim Creat Clear Calc 61.39, Est GFR (MDRD) Af Amer 96, Est GFR (MDRD) Non-Af 79, BUN/Creatinine Ratio 13.9, Glucose 132 H, Calcium 9.1, Troponin I < 0.015 08/31/19 14:30: Lactic Acid 1.7 08/31/19 14:48: Specimen Type ART, Sample Site R BRACHIAL, pH 7.34 L, Bicarbonate Actual 36.5 H, POC Total CO2 39, Base Excess 11 H, O2 Saturation 98, ABG pCO2 68.3 H*, ABG pO2 126 H, O2 Delivery Device Nasal Can, Liter Flow 3.0, Blood Gas Notified Whom ED MD, Blood Gas Notified Time 1448 08/31/19 14:50: Urine Color Yellow, Urine Clarity Clear, Urine pH 7.0, Ur Specific [place] 1.010, Urine Protein Negative, Urine Glucose (UA) Normal, Urine Ketones 15 H, Urine Occult Blood Negative, Urine Nitrite Negative, Urine Bilirubin Negative, Urine Urobilinogen Normal, Ur Leukocyte Esterase Negative, Urine RBC 0 SEEN, Urine WBC 0 SEEN, Ur Squamous Epith Cells 0 SEEN, Urine Bacteria 0 SEEN, Urine Mucus 0 SEEN 08/31/19 18:33: POC Glucose 195 H 08/31/19 23:55: POC Glucose 249 H 09/01/19 06:12: POC Glucose 217 H 09/01/19 06:35: WBC 4.4, RBC 3.82 L, Hgb 12.1, Hct 36.5 L, MCV 95.5, MCH 31.7, MCHC 33.2 D, RDW Std Deviation 44.3 H, RDW Coeff of Da 12.6, Plt Count 159, MPV 9.4, Immature Gran % (Auto) 1.100 H, Neut % (Auto) 76.2 H, Lymph % (Auto) 20.0, [place] % (Auto) 2.5, Eos % (Auto) 0.0, Baso % (Auto) 0.2, Absolute Neuts (auto) 3.3, Absolute Lymphs (auto) 0.88, Nucleated RBC % 0 09/01/19 06:35: Sodium 134 L, Potassium 4.0, Chloride 94 L, Carbon Dioxide 33.0 H, Anion Gap 7, BUN 14, Creatinine 0.67, Estim Creat Clear Calc 72.39, Est GFR (MDRD) Af Amer 117, Est GFR (MDRD) Non-Af 97, BUN/Creatinine Ratio 21.0 H, Glucose 222 H, Calcium 9.1 09/01/19 12:33: POC Glucose 307 H Current Medications Acetaminophen (Tylenol) 650 mg PO Q6H PRN PRN PRN Reason: Pain Score 1-10/Temp > 100.7 F Albuterol Sulfate (Ventolin Aerosols) 2.5 mg INHALATION Q2H PRN PRN PRN Reason: SHORTNESS OF BREATH Albuterol/Ipratropium (Duoneb) 3 ml INHALATION Q4H.RT [facility] Last Admin: 09/01/19 11:08 Dose: 3 ml Documented by: Azithromycin (Zithromax) 500 mg PO DAILY [facility] Last Admin: 09/01/19 10:27 Dose: 500 mg Documented by: Dextrose (D50w Syringe) 0 gm IV X1 PRN; Protocol PRN Reason: Hypoglycemia Enoxaparin Sodium (Lovenox) 40 mg SC DAILY [facility] Last Admin: 09/01/19 10:26 Dose: 40 mg Documented by: Glucagon () 1 mg IM .X1 PRN PRN Reason: Hypoglycemia Sodium Chloride () 250 mls @ 15 mls/hr IV .[id number] PRN PRN Reason: Saline Flush Sodium Chloride () 250 mls @ 15 mls/hr IV .[id number] PRN PRN Reason: Additional IVPB Infusion Insulin Human Lispro (Humalog Kwikpen (Bkc)) 0 unit SC Q6 [facility]; Protocol Last Admin: 09/01/19 06:17 Dose: 2 unit Documented by: Methylprednisolone (Solu-Medrol) 40 mg IV Q8 [facility] Last Admin: 09/01/19 06:17 Dose: 40 mg Documented by: Nystatin (Mycostatin Powder) 1 applic TOPICAL BID GI; Protocol Ondansetron HCl (Zofran) 4 mg IV Q8H PRN PRN PRN Reason: NAUSEA/VOMITING Senna/Docusate Sodium (Senokot-S, Vonda-Colace) 2 tablet PO BID PRN PRN PRN Reason: Constipation Sodium Chloride () 10 - 40 ml IV UD PRN PRN Reason: SALINE FLUSH Medical Necessity - Tobacco Use Smoking Status: Current every day smoker Tobacco Use: Cigarettes Assessment/Plan All Active Problems (Last Updated 04/06/19 @ 21:[address] Jory Raines, DO) COPD exacerbation (Acute) Metabolic encephalopathy (Acute) Acute and chronic respiratory failure with hypercapnia (Acute) 1. Acute on chronic combined hypercapnic and hypoxic respiratory failure secondary to COPD exacerbation, complicated by noncompliance with oxygen and B iPAP-continue supplemental oxygen to maintain O2 sat above 90%. Continue BiPAP as tolerated. Chest x-ray without acute findings. Patient continues to remain intermittently drowsy. Albuterol and DuoNeb aerosols. IV Solu-Medrol. Oral azithromycin. Patient is to be on 3 L nasal cannula chronically however had not been wearing her supplement oxygen prior to admission. Walking pulse ox prior to discharge. 2. Acute metabolic encephalopathy-secondary to #1. Treatment per above. 3. Type 2 diabetes [id number] with sliding scale insulin. 4. Anxiety/depression/bipolar-continue home medication regimen. Hold sedating regimen. 5. ISABELL-continue BiPAP as tolerated and nightly. 6. GERD-continue PPI. DVT prophylaxis-Lovenox subcu This patient was seen by SHEREEN Madrigal under the supervision of Dr. Montez. <Prudence Montez - Last Filed: 09/01/19 14:03> - Physical Exam Vitals/I&O's: Vital Signs Temp Pulse Resp BP Pulse Ox 98.4 F 76 21 H 144/77 H 98 09/01/19 10:23 09/01/19 11:08 09/01/19 11:08 09/01/19 10:23 09/01/19 10:23 Oxygen Flow Rate (L/min) 3 Oxygen Delivery Method Nasal Cannula Weight: 105.324 kg Body Mass Index (BMI) 42.5 Intake and Output for Last 24 Hours 08/30/19 08/31/1908/31/20 23:59 23:59 23:59 Intake Total 495 / 495 0 / 0 Output Total 700 / 700 650 / 650 Balance -205 / -205 -650 / -650 Laboratory Results 08/31/19 14:30: WBC 7.2, RBC 3.77 L, Hgb 11.9 L, Hct 37.7, MCV 100.0 H, MCH 31.6, MCHC 31.6 L, RDW Std Deviation 48.2 H, RDW Coeff of Da 13.2, Plt Count 169, MPV 9.8, Immature Gran % (Auto) 0.800, Neut % (Auto) 67.4, Lymph % (Auto) 23.9, [place] % (Auto) 6.8, Eos % (Auto) 0.8, Baso % (Auto) 0.3, Absolute Neuts (auto) 4.9, Absolute Lymphs (auto) 1.73, Nucleated RBC % 0 08/31/19 14:30: Sodium 134 L, Potassium 4.1, Chloride 97 L, Carbon Dioxide 36.0 H, Anion Gap 1 L, BUN 11, Creatinine 0.79, Estim Creat Clear Calc 61.39, Est GFR (MDRD) Af Amer 96, Est GFR (MDRD) Non-Af 79, BUN/Creatinine Ratio 13.9, Glucose 132 H, Calcium 9.1, Troponin I < 0.015 08/31/19 14:30: Lactic Acid 1.7 08/31/19 14:48: Specimen Type ART, Sample Site R BRACHIAL, pH 7.34 L, Bicarbonate Actual 36.5 H, POC Total CO2 39, Base Excess 11 H, O2 Saturation 98, ABG pCO2 68.3 H*, ABG pO2 126 H, O2 Delivery Device Nasal Can, Liter Flow 3.0, Blood Gas Notified Whom ED , Blood Gas Notified Time 1448 08/31/19 14:50: Urine Color Yellow, Urine Clarity Clear, Urine pH 7.0, Ur Specific [place] 1.010, Urine Protein Negative, Urine Glucose (UA) Normal, Urine Ketones 15 H, Urine Occult Blood Negative, Urine Nitrite Negative, Urine Bilirubin Negative, Urine Urobilinogen Normal, Ur Leukocyte Esterase Negative, Urine RBC 0 SEEN, Urine WBC 0 SEEN, Ur Squamous Epith Cells 0 SEEN, Urine Bacteria 0 SEEN, Urine Mucus 0 SEEN 08/31/19 18:33: POC Glucose 195 H 08/31/19 23:55: POC Glucose 249 H 09/01/19 06:12: POC Glucose 217 H 09/01/19 06:35: WBC 4.4, RBC 3.82 L, Hgb 12.1, Hct 36.5 L, MCV 95.5, MCH 31.7, MCHC 33.2 D, RDW Std Deviation 44.3 H, RDW Coeff of Da 12.6, Plt Count 159, MPV 9.4, Immature Gran % (Auto) 1.100 H, Neut % (Auto) 76.2 H, Lymph % (Auto) 20.0, [place] % (Auto) 2.5, Eos % (Auto) 0.0, Baso % (Auto) 0.2, Absolute Neuts (auto) 3.3, Absolute Lymphs (auto) 0.88, Nucleated RBC % 0 09/01/19 06:35: Sodium 134 L, Potassium 4.0, Chloride 94 L, Carbon Dioxide 33.0 H, Anion Gap 7, BUN 14, Creatinine 0.67, Estim Creat Clear Calc 72.39, Est GFR (MDRD) Af Amer 117, Est GFR (MDRD) Non-Af 97, BUN/Creatinine Ratio 21.0 H, Glucose 222 H, Calcium 9.1 09/01/19 12:33: POC Glucose 307 H Current Medications Acetaminophen (Tylenol) 650 mg PO Q6H PRN PRN PRN Reason: Pain Score 1-10/Temp > 100.7 F Albuterol Sulfate (Ventolin Aerosols) 2.5 mg INHALATION Q2H PRN PRN PRN Reason: SHORTNESS OF BREATH Albuterol/Ipratropium (Duoneb) 3 ml INHALATION Q4H.RT [facility] Last Admin: 09/01/19 11:08 Dose: 3 ml Documented by: Azithromycin (Zithromax) 500 mg PO DAILY [facility] Last Admin: 09/01/19 10:27 Dose: 500 mg Documented by: Dextrose (D50w Syringe) 0 gm IV X1 PRN; Protocol PRN Reason: Hypoglycemia Enoxaparin Sodium (Lovenox) 40 mg SC DAILY [facility] Last Admin: 09/01/19 10:26 Dose: 40 mg Documented by: Glucagon () 1 mg IM .X1 PRN PRN Reason: Hypoglycemia Sodium Chloride () 250 mls @ 15 mls/hr IV .[id number] PRN PRN Reason: Saline Flush Sodium Chloride () 250 mls @ 15 mls/hr IV .[id number] PRN PRN Reason: Additional IVPB Infusion Insulin Human Lispro (Humalog Kwikpen (Bkc)) 0 unit SC Q6 GI; Protocol Last Admin: 09/01/19 12:57 Dose: 3 unit Documented by: Methylprednisolone (Solu-Medrol) 40 mg IV Q8 GI Last Admin: 09/01/19 06:17 Dose: 40 mg Documented by: Nystatin (Mycostatin Powder) 1 applic TOPICAL BID GI; Protocol Last Admin: 09/01/19 12:56 Dose: 1 applicatio Documented by: Ondansetron HCl (Zofran) 4 mg IV Q8H PRN PRN PRN Reason: NAUSEA/VOMITING Senna/Docusate Sodium (Senokot-S, Vonda-Colace) 2 tablet PO BID PRN PRN PRN Reason: Constipation Sodium Chloride () 10 - 40 ml IV UD PRN PRN Reason: SALINE FLUSH Assessment/Plan This patient was seen in conjunction with Christine Tineo ENVELOPE PRESS OPERATOR. I have independently interviewed and examined the patient and reviewed pertinent historical, laboratory, and other data. Please refer to her note for patient's presentation, findings, and recommendations. Patient was seen and examined. She feels improved. Still lethargic but answers questions appropriately. No acute events overnight. Vitals were reviewed -stable Physical Exam: Gen: Comfortable, not pale, not jaundiced, alert oriented x3 CVS:HS I +II, regular, no murmurs RESP: Diminished at lung bases GI: BS present and normal, nontender, no palpable organs EXT:No edema Labs reviewed: ASSESSMENT: 1. Acute on chronic combined respiratory failure 2. COPD exacerbation 3. Acute metabolic encephalopathy 4. Type 2 DM 5. Anxiety/depression 6. ISABELL 7. GERD Meds reviewed Plan: Continue to use BiPAP, continue on oxygen Continue on Solu-Medrol, breathing treatments Will update home med list when med update Inpatient E&M: 64510 Subs Hosp L2
--- NOTE | 2019-09-01 14:15 | NURSING ---
Search Marketing Specialist notified this nurse that patient has a niece named Geovanna that had called for an update and that patient did not want Geovanna listed as a contact nor information given to her. This nurse spoke with CM who stated patient had informed her of the same and that she lives with a niece named Kristina but was unable to recall a phone number for her. This nurse then spoke to patient regarding Geovanna. Patient stated to this nurse that she does not want Geovanna Zavala notified or information given to her and prefers to have Kristina as her contact. When asked if she had a number for Kristina she stated she could not recall it.
[2019-09-01] MEDS: 0.9% Saline Lock 10 ML Syringe IV ×2 (14:30→21:20)
[2019-09-01 17:45] LABS: Bedside Glucose 266 mg/dL (70-110)
[2019-09-02] VITALS (16 sets, daily range): BP systolic 127–164; BP diastolic 63–90; PULSE 74–95; RESP 12–20; TEMP 36.6–37.1; O2SAT 94–99
[2019-09-02] MEDS: Insulin Lispro 100 UNIT/ML INSULN.PEN SC ×5 (00:23→20:57)
[2019-09-02 00:30] LABS: Bedside Glucose 275 mg/dL (70-110)
[2019-09-02] MEDS: Ipratropium/Albuterol Sulfate 3 ML AMPUL.NEB INHALATION ×6 (03:16→22:25)
[2019-09-02 06:46] LABS: Bedside Glucose 253 mg/dL (70-110)
[2019-09-02 06:48] LABS: Anion Gap 4 (5-15); BUN 15 mg/dL (7-18); BUN/Creat Ratio 21.5 RATIO (10-20); Calcium,Total 9.4 mg/dL (8.5-10.1); Chloride 96 mmol/L (98-107); EST Glomerular Filtration Rate 92 mL/min (>60); Est Glom Filt Rate - Afr Amer 111 mL/min (>60); Estimated Creatinine Clearance 69.29 ml/min; Glucose 254 mg/dL (74-106); Potassium 4.4 mmol/L (3.5-5.1); Sodium Level 134 mmol/L (136-145)
[2019-09-02] MEDS: Enoxaparin 40 MG/0.4 ML Syringe SC (09:54)
[2019-09-02] MEDS: Nystatin Powder 15gm Bottle 1 APPLIC TOPICAL ×2 (09:54→20:20)
[2019-09-02 11:36] LABS: Bedside Glucose 267 mg/dL (70-110)
--- NOTE | 2019-09-02 12:13 | PCM.PROGNOTE ---
<Christine Tineo - Last Filed: 09/02/19 12:20> Patient Problems: Active and Suspected Problems (Last Updated 04/06/19 @ 21:[address] Jory Raines DO) COPD exacerbation (Acute) Metabolic encephalopathy (Acute) Acute and chronic respiratory failure with hypercapnia (Acute) Subjective: Patient seen and examined. Appears more alert this morning. Denies fever, chills. Reports improvement in breathing. Nursing reports patient continues to be intermittently drowsy still. Encouraged BiPAP use. - Physical Exam Vitals/I&O's: Vital Signs Temp Pulse Resp BP Pulse Ox 97.8 F 80 20 H 149/82 H 99 09/02/19 09:15 09/02/19 11:34 09/02/19 11:34 09/02/19 09:15 09/02/19 09:50 Oxygen Flow Rate (L/min) 3 Oxygen Delivery Method Nasal Cannula Weight: 232 lb 3.195 oz Body Mass Index (BMI) 42.5 Intake and Output for Last 24 Hours 08/31/19 09/01/19 09/02/19 23:59 23:59 23:59 Intake Total 495 / 495 960 / 960 Output Total 700 / 700 1050 / 1050 200 / 200 Balance -205 / -205 -90 / -90 -200 / -200 General: Alert, Oriented x3, Cooperative HEENT: Atraumatic, PERRLA, EOMI, Normocephalic Oral: Dry Mucosa Neck: Supple, No JVD, Negative Carotid Bruits Lungs: Clear to auscultation, Diminished Cardiovascular: Regular rate, Regular Rhythm, Normal S1, Normal S2, No murmurs Abdomen: Bowel Sounds Present, Soft, Non Tender, Non-Distended Extremities: No clubbing, No cyanosis, No edema, Capillary Refill Less than 3 Seconds Skin: No rashes, No breakdown Musculoskeletal: No Tenderness to Palpation of Joints or Extremities Neurological: Cranial nerves II-XII grossly intact, Neuro grossly intact Psych/Mental Status: Flat Affect Microbiology Past 72 Hours 08/31/19 14:30 Blood Culture (Wb) - Anticubital Right Blood Culture - Preliminary No growth in 48 hours. 08/31/19 14:30 Blood Culture (Wb) - Anticubital Left Blood Culture - Preliminary No growth in 48 hours. Laboratory Results 09/01/19 12:33: POC Glucose 307 H 09/01/19 17:24: POC Glucose 266 H 09/02/19 00:19: POC Glucose 275 H 09/02/19 04:42: Sodium Cancelled, Potassium Cancelled, Chloride Cancelled, Carbon Dioxide Cancelled, Anion Gap Cancelled, BUN Cancelled, Creatinine Cancelled, Estim Creat Clear Calc Cancelled, Est GFR (MDRD) Af Amer Cancelled, Est GFR (MDRD) Non-Af Cancelled, BUN/Creatinine Ratio Cancelled, Glucose Cancelled, Calcium Cancelled 09/02/19 06:15: Sodium 134 L, Potassium 4.4, Chloride 96 L, Carbon Dioxide 34.0 H, Anion Gap 4 L, BUN 15, Creatinine 0.70, Estim Creat Clear Calc 69.29, Est GFR (MDRD) Af Amer 111, Est GFR (MDRD) Non-Af 92, BUN/Creatinine Ratio 21.5 H, Glucose 254 H, Calcium 9.4 09/02/19 06:32: POC Glucose 253 H 09/02/19 11:15: POC Glucose 267 H Current Medications Acetaminophen (Tylenol) 650 mg PO Q6H PRN PRN PRN Reason: Pain Score 1-10/Temp > 100.7 F Albuterol Sulfate (Ventolin Aerosols) 2.5 mg INHALATION Q2H PRN PRN PRN Reason: SHORTNESS OF BREATH Albuterol/Ipratropium (Duoneb) 3 ml INHALATION Q4H.RT [facility] Last Admin: 09/02/19 11:34 Dose: 3 ml Documented by: Azithromycin (Zithromax) 500 mg PO DAILY [facility] Last Admin: 09/01/19 10:27 Dose: 500 mg Documented by: Dextrose (D50w Syringe) 0 gm IV X1 PRN; Protocol PRN Reason: Hypoglycemia Enoxaparin Sodium (Lovenox) 40 mg SC DAILY [facility] Last Admin: 09/02/19 09:54 Dose: 40 mg Documented by: Glucagon () 1 mg IM .X1 PRN PRN Reason: Hypoglycemia Sodium Chloride () 250 mls @ 15 mls/hr IV .[id number] PRN PRN Reason: Saline Flush Sodium Chloride () 250 mls @ 15 mls/hr IV .[id number] PRN PRN Reason: Additional IVPB Infusion Insulin Human Lispro (Humalog Kwikpen (Bkc)) 0 unit SC ACHS GI; Protocol Last Admin: 09/02/19 11:27 Dose: 6 u Documented by: Methylprednisolone (Solu-Medrol) 40 mg IV Q8 GI Last Admin: 09/02/19 06:35 Dose: 40 mg Documented by: Nystatin (Mycostatin Powder) 1 applic TOPICAL BID [facility]; Protocol Last Admin: 09/02/19 09:54 Dose: 1 applicatio Documented by: Ondansetron HCl (Zofran) 4 mg IV Q8H PRN PRN PRN Reason: NAUSEA/VOMITING Senna/Docusate Sodium (Senokot-S, Vonda-Colace) 2 tablet PO BID PRN PRN PRN Reason: Constipation Sodium Chloride () 10 - 40 ml IV UD PRN PRN Reason: SALINE FLUSH Last Admin: 09/01/19 21:20 Dose: 10 ml Documented by: Medical Necessity - Tobacco Use Smoking Status: Current every day smoker Tobacco Use: Cigarettes Assessment/Plan All Active Problems (Last Updated 04/06/19 @ 21:[address] Jory Raines, DO) COPD exacerbation (Acute) Metabolic encephalopathy (Acute) Acute and chronic respiratory failure with hypercapnia (Acute) 1. Acute on chronic combined hypercapnic and hypoxic respiratory failure secondary to COPD exacerbation, complicated by noncompliance with oxygen and BiPAP-continue supplemental oxygen to maintain O2 sat above 90%. Continue BiPAP as tolerated. Chest x-ray without acute findings. Patient continues to remain intermittently drowsy. Albuterol and DuoNeb aerosols. IV Solu-Medrol. Oral azithromycin. Patient is to be on 3 L nasal cannula chronically however had not been wearing her supplement oxygen prior to admission. Walking pulse ox prior to discharge. 2. Acute metabolic encephalopathy-secondary to #1. Improving. Treatment per above. 3. Type 2 diabetes [id number] with sliding scale insulin. 4. Anxiety/depression/bipolar-continue home medication regimen. Hold sedating regimen. 5. ISABELL-continue BiPAP as tolerated and nightly. 6. GERD-continue PPI. DVT prophylaxis-Lovenox subcu This patient was seen by SHEREEN Madrigal under the supervision of Dr. Montez. <Prudence Montez - Last Filed: 09/02/19 13:35> - Physical Exam Vitals/I&O's: Vital Signs Temp Pulse Resp BP Pulse Ox 97.8 F 80 20 H 149/82 H 99 09/02/19 09:15 09/02/19 11:34 09/02/19 11:34 09/02/19 09:15 09/02/19 09:50 Oxygen Flow Rate (L/min) 3 Oxygen Delivery Method Nasal Cannula Weight: 105.324 kg Body Mass Index (BMI) 42.5 Intake and Output for Last 24 Hours 08/31/19 09/01/19 09/02/19 23:59 23:59 23:59 Intake Total 495 / 495 960 / 960 Output Total 700 / 700 1050 / 1050 600 / 600 Balance -205 / -205 -90 / -90 -600 / -600 Microbiology Past 72 Hours 08/31/19 14:30 Blood Culture (Wb) - Anticubital Right Blood Culture - Preliminary No growth in 48 hours. 08/31/19 14:30 Blood Culture (Wb) - Anticubital Left Blood Culture - Preliminary No growth in 48 hours. Laboratory Results 09/01/19 17:24: POC Glucose 266 H 09/02/19 00:19: POC Glucose 275 H 09/02/19 04:42: Sodium Cancelled, Potassium Cancelled, Chloride Cancelled, Carbon Dioxide Cancelled, Anion Gap Cancelled, BUN Cancelled, Creatinine Cancelled, Estim Creat Clear Calc Cancelled, Est GFR (MDRD) Af Amer Cancelled, Est GFR (MDRD) Non-Af Cancelled, BUN/Creatinine Ratio Cancelled, Glucose Cancelled, Calcium Cancelled 09/02/19 06:15: Sodium 134 L, Potassium 4.4, Chloride 96 L, Carbon Dioxide 34.0 H, Anion Gap 4 L, BUN 15, Creatinine 0.70, Estim Creat Clear Calc 69.29, Est GFR (MDRD) Af Amer 111, Est GFR (MDRD) Non-Af 92, BUN/Creatinine Ratio 21.5 H, Glucose 254 H, Calcium 9.4 09/02/19 06:32: POC Glucose 253 H 09/02/19 11:15: POC Glucose 267 H Current Medications Acetaminophen (Tylenol) 650 mg PO Q6H PRN PRN PRN Reason: Pain Score 1-10/Temp > 100.7 F Albuterol Sulfate (Ventolin Aerosols) 2.5 mg INHALATION Q2H PRN PRN PRN Reason: SHORTNESS OF BREATH Albuterol/Ipratropium (Duoneb) 3 ml INHALATION Q4H.RT [facility] Last Admin: 09/02/19 11:34 Dose: 3 ml Documented by: Azithromycin (Zithromax) 500 mg PO DAILY [facility] Last Admin: 09/02/19 12:52 Dose: 500 mg Documented by: Colestipol HCl (Colestid Tablet) 1 gm PO BID [facility] Dextrose (D50w Syringe) 0 gm IV X1 PRN; Protocol PRN Reason: Hypoglycemia Divalproex Sodium (Depakote) 500 mg PO BID [facility] Enoxaparin Sodium (Lovenox) 40 mg SC DAILY [facility] Last Admin: 09/02/19 09:54 Dose: 40 mg Documented by: Glucagon () 1 mg IM .X1 PRN PRN Reason: Hypoglycemia Sodium Chloride () 250 mls @ 15 mls/hr IV .[id number] PRN PRN Reason: Saline Flush Sodium Chloride () 250 mls @ 15 mls/hr IV .[id number] PRN PRN Reason: Additional IVPB Infusion Insulin Glargine (Lantus (Bkc)) 10 units SC QHS [facility] Insulin Human Lispro (Humalog Kwikpen (Bkc)) 0 unit SC ACHS [facility]; Protocol Last Admin: 09/02/19 11:27 Dose: 6 u Documented by: Nystatin (Mycostatin Powder) 1 applic TOPICAL BID [facility]; Protocol Last Admin: 09/02/19 09:54 Dose: 1 applicatio Documented by: Ondansetron HCl (Zofran) 4 mg IV Q8H PRN PRN PRN Reason: NAUSEA/VOMITING Pantoprazole Sodium (Protonix) 40 mg PO DAILY [facility] Prednisone () 40 mg PO DAILY@0800 [facility] Risperidone (Risperdal) 1 mg PO BID [facility] Senna/Docusate Sodium (Senokot-S, Vonda-Colace) 2 tablet PO BID PRN PRN PRN Reason: Constipation Sodium Chloride () 10 - 40 ml IV UD PRN PRN Reason: SALINE FLUSH Last Admin: 09/01/19 21:20 Dose: 10 ml Documented by: Venlafaxine HCl (Effexor Xr) 75 mg PO DAILY [facility] Assessment/Plan This patient was seen in conjunction with Christine Noman MECHANIC HELPER. I have independently interviewed and examined the patient and reviewed pertinent historical, laboratory, and other data. Please refer to her note for patient's presentation, findings, and recommendations. Patient was seen and examined. Still lethargic but answers questions appropriately. No acute events overnight. Home med list updated. On multiple medications Vitals were reviewed -stable Physical Exam: Gen: Comfortable, morbid obesity, not pale, not jaundiced, alert oriented x3, lethargic CVS:HS I +II, regular, no murmurs RESP: Diminished at lung bases GI: BS present and normal, nontender, no palpable organs EXT:No edema Labs and Meds reviewed ASSESSMENT: 1. Acute on chronic combined respiratory failure 2. Acute COPD exacerbation 3. Acute metabolic encephalopathy 4. Polypharmacy 5. Type 2 DM 6. Anxiety/depression 7. ISABELL 8. GERD Plan: Encourage to use BiPAP, continue on oxygen Switched to prednisone, continue breathing treatments Home sedatives discontinued. Possible DC in am Inpatient E&M: [id number] Subs Hosp L2
[2019-09-02] MEDS: Azithromycin 250 MG Tablet 500 MG PO (12:52)
[2019-09-02 17:15] LABS: Bedside Glucose 274 mg/dL (70-110)
[2019-09-02] MEDS: Acetaminophen 325 MG Tablet 650 MG PO (20:20)
[2019-09-02] MEDS: Divalproex Sodium 250 MG Tablet 500 MG PO (20:21)
[2019-09-02] MEDS: RisperiDONE 1 MG Tablet PO (20:22)
[2019-09-02] MEDS: 0.9% Saline Lock 10 ML Syringe IV (20:33)
[2019-09-02 21:21] LABS: Bedside Glucose 228 mg/dL (70-110)
--- NOTE | 2019-09-02 21:52 | NURSING ---
All HS medications given early per patient request
[2019-09-03] VITALS (22 sets, daily range): BP systolic 107–144; BP diastolic 60–91; PULSE 65–91; RESP 12–20; TEMP 36.6–36.9; O2SAT 93–100
[2019-09-03] MEDS: Ipratropium/Albuterol Sulfate 3 ML AMPUL.NEB INHALATION ×5 (03:08→23:10)
[2019-09-03 06:41] LABS: Bedside Glucose 126 mg/dL (70-110)
[2019-09-03 06:45] LABS: Anion Gap 6 (5-15); BUN 21 mg/dL (7-18); BUN/Creat Ratio 31.4 RATIO (10-20); Chloride 99 mmol/L (98-107); Creatinine, Serum 0.67 mg/dL (0.55-1.02); EST Glomerular Filtration Rate 96 mL/min (>60); Est Glom Filt Rate - Afr Amer 116 mL/min (>60); Estimated Creatinine Clearance 72.39 ml/min; Glucose 126 mg/dL (74-106); Potassium 3.9 mmol/L (3.5-5.1); Sodium Level 138 mmol/L (136-145)
[2019-09-03] MEDS: Acetaminophen 325 MG Tablet 650 MG PO ×3 (08:52→20:59)
[2019-09-03] MEDS: predniSONE 20 MG Tablet 40 MG PO (08:52)
[2019-09-03] MEDS: Azithromycin 250 MG Tablet 500 MG PO (08:59)
[2019-09-03] MEDS: Enoxaparin 40 MG/0.4 ML Syringe SC (08:59)
[2019-09-03] MEDS: Venlafaxine XR 75 MG Capsule PO (08:59)
[2019-09-03] MEDS: Nystatin Powder 15gm Bottle 1 APPLIC TOPICAL ×2 (09:00→21:05)
[2019-09-03] MEDS: Pantoprazole Sodium 40 MG Tablet PO (09:03)
[2019-09-03] MEDS: Divalproex Sodium 250 MG Tablet 500 MG PO ×2 (09:04→20:59)
--- NOTE | 2019-09-03 09:17 | NURSING ---
cont pulse ox check with 3l as pt uses at home and was at 97%
--- NOTE | 2019-09-03 10:04 | CASEMGMT ---
Per Jaylin ALANIZ, pt's brother called in and states that pt cannot go back to where she was living with Kristina and would like to talk to CM at this time. This RN CM to room to advised pt of brothers call and she seems to be aware of what brother was stating and advised her that pt's brother states that he needs to go to a SNF. Pt gestures to a [employer] folder on the window sill for this RN CM at this time. In the folder is a note from her brother that states to call [facility] regarding pt and if any further questions then to call the brother, Hesham, back at [phone]. Pt states that she is agreeable to SNF at this time. Alysia SW updated on all at this time, voices understanding. Jose ALANIZ CM
--- NOTE | 2019-09-03 10:56 | PCM.PN.HOSP ---
<Chicho Tao - Last Filed: 09/03/19 10:56> Patient Problems: Active and Suspected Problems (Last Updated 04/06/19 @ 21:[address] oJry Raines DO) COPD exacerbation (Acute) Metabolic encephalopathy (Acute) Acute and chronic respiratory failure with hypercapnia (Acute) Reason for Visit: SOB Subjective: No SOB. mild cough. no fever/chills. No CP. Vitals/I&O's: Vital Signs Temp Pulse Resp BP Pulse Ox 98.2 F 87 20 H 133/85 H 97 09/03/19 08:53 09/03/19 08:53 09/03/19 08:53 09/03/19 08:53 09/03/19 09:22 Oxygen Flow Rate (L/min) [ 3 AMBULATION with Oxygen] Oxygen Flow Rate (L/min) 3 Oxygen Delivery Method Nasal Cannula Weight: 232 lb 3.195 oz Body Mass Index (BMI) 42.5 Intake and Output for Last 24 Hours 09/01/19 09/02/19 09/03/19 23:59 23:59 23:59 Intake Total 960 / 960 540 / 540 Output Total 1050 / 1050 600 / 600 Balance -90 / -90 -60 / -60 General: Alert, Oriented x3, Cooperative HEENT: Atraumatic, PERRLA, EOMI, Normocephalic Neck: Supple, No JVD, Negative Carotid Bruits Lungs: Clear to auscultation, Normal air movement Cardiovascular: Regular rate, No murmurs Abdomen: Bowel Sounds Present, Soft, Non Tender Extremities: No edema, Capillary Refill Less than 3 Seconds Skin: No rashes, No breakdown Musculoskeletal: No Tenderness to Palpation of Joints or Extremities Neurological: Cranial nerves II-XII grossly intact Psych/Mental Status: Normal Affect, Appropriate, Alert and oriented to time, place, person, mood and affect Microbiology Past 72 Hours 08/31/19 14:30 Blood Culture (Wb) - Anticubital Right Blood Culture - Preliminary No growth in 48 hours. 08/31/19 14:30 Blood Culture (Wb) - Anticubital Left Blood Culture - Preliminary No growth in 48 hours. Laboratory Results 09/02/19 11:15: POC Glucose 267 H 09/02/19 17:08: POC Glucose 274 H 09/02/19 20:55: POC Glucose 228 H 09/03/19 06:00: Sodium 138, Potassium 3.9, Chloride 99, Carbon Dioxide 33.0 H, Anion Gap 6, BUN 21 H, Creatinine 0.67, Estim Creat Clear Calc 72.39, Est GFR (MDRD) Af Amer 116, Est GFR (MDRD) Non-Af 96, BUN/Creatinine Ratio 31.4 H, Glucose 126 H, Calcium 9.0 09/03/19 06:34: POC Glucose 126 H Current Medications Acetaminophen (Tylenol) 650 mg PO Q6H PRN PRN PRN Reason: Pain Score 1-10/Temp > 100.7 F Last Admin: 09/03/19 08:52 Dose: 650 mg Documented by: Albuterol Sulfate (Ventolin Aerosols) 2.5 mg INHALATION Q2H PRN PRN PRN Reason: SHORTNESS OF BREATH Albuterol/Ipratropium (Duoneb) 3 ml INHALATION Q4H.RT [facility] Last Admin: 09/03/19 07:03 Dose: 3 ml Documented by: Azithromycin (Zithromax) 500 mg PO DAILY [facility] Last Admin: 09/03/19 08:59 Dose: 500 mg Documented by: Colestipol HCl (Colestid Tablet) 1 gm PO BID [facility] Last Admin: 09/03/19 08:58 Dose: 1 gm Documented by: Dextrose (D50w Syringe) 0 gm IV X1 PRN; Protocol PRN Reason: Hypoglycemia Divalproex Sodium (Depakote) 500 mg PO BID [facility] Last Admin: 09/03/19 09:04 Dose: 500 mg Documented by: Enoxaparin Sodium (Lovenox) 40 mg SC DAILY [facility] Last Admin: 09/03/19 08:59 Dose: 40 mg Documented by: Glucagon () 1 mg IM .X1 PRN PRN Reason: Hypoglycemia Sodium Chloride () 250 mls @ 15 mls/hr IV .[id number] PRN PRN Reason: Saline Flush Sodium Chloride () 250 mls @ 15 mls/hr IV .[id number] PRN PRN Reason: Additional IVPB Infusion Insulin Glargine (Lantus (Bkc)) 10 units SC QHS [facility] Last Admin: 09/02/19 20:57 Dose: 10 units Documented by: Insulin Human Lispro (Humalog Kwikpen (Bk)) 0 unit SC ACHS [facility]; Protocol Last Admin: 09/03/19 06:38 Dose: Not Given Documented by: Nystatin (Mycostatin Powder) 1 applic TOPICAL BID [facility]; Protocol Last Admin: 09/03/19 09:00 Dose: 1 applicatio Documented by: Ondansetron HCl (Zofran) 4 mg IV Q8H PRN PRN PRN Reason: NAUSEA/VOMITING Pantoprazole Sodium (Protonix) 40 mg PO DAILY [facility] Last Admin: 09/03/19 09:03 Dose: 40 mg Documented by: Prednisone () 40 mg PO DAILY@0800 [facility] Last Admin: 09/03/19 08:52 Dose: 40 mg Documented by: Risperidone (Risperdal) 1 mg PO BID [facility] Last Admin: 09/02/19 20:22 Dose: 1 mg Documented by: Senna/Docusate Sodium (Senokot-S, Vonda-Colace) 2 tablet PO BID PRN PRN PRN Reason: Constipation Sodium Chloride () 10 - 40 ml IV UD PRN PRN Reason: SALINE FLUSH Last Admin: 09/02/19 20:33 Dose: 10 ml Documented by: Venlafaxine HCl (Effexor Xr) 75 mg PO DAILY [facility] Last Admin: 09/03/19 08:59 Dose: 75 mg Documented by: STROKE Vital Signs/Narrative: Vital Signs Temp Pulse Resp BP Pulse Ox Pulse Ox 09/03/19 09:22 97 09/03/19 09:21 97 09/03/19 09:16 97 09/03/19 08:53 98.2 F 87 20 H 133/85 H 100 09/03/19 08:08 69 09/03/19 07:03 78 20 H 99 Medical Necessity - Tobacco Use Smoking Status: Current every day smoker Tobacco Use: Cigarettes Assessment/Plan All Active Problems (Last Updated 04/06/19 @ 21:[address] Jory Raines, DO) COPD exacerbation (Acute) Metabolic encephalopathy (Acute) Acute and chronic respiratory failure with hypercapnia (Acute) 1. Acute on chronic combined respiratory failure 2/2 COPD exacerbation - improved. continue prednisone taper + aerosols. 2. Acute metabolic encephalopathy 2/2 above - resolved 3. T2DM - SSI 4. Anx/depression/bipolar - continue home meds 5. ISABELL- bipap qhs 6. GERD - ppi 7. Nicotine abuse - 1/2 ppd smoker. needs complete cessation DVT ppx: lovenox DC Planning: homeless, going to SNF. SW following This patient was seen by Chicho Tao PA-C under the supervision of Dr. Montez <Prudence Montez - Last Filed: 09/03/19 11:55> Vitals/I&O's: Vital Signs Temp Pulse Resp BP Pulse Ox 98.2 F 87 20 H 133/85 H 97 09/03/19 08:53 09/03/19 08:53 09/03/19 08:53 09/03/19 08:53 09/03/19 09:22 Oxygen Flow Rate (L/min) [ 3 AMBULATION with Oxygen] Oxygen Flow Rate (L/min) 3 Oxygen Delivery Method Nasal Cannula Weight: 105.324 kg Body Mass Index (BMI) 42.5 Intake and Output for Last 24 Hours 09/01/19 09/02/19 09/03/19 23:59 23:59 23:59 Intake Total 960 / 960 540 / 540 Output Total 1050 / 1050 600 / 600 Balance -90 / -90 -60 / -60 Microbiology Past 72 Hours 08/31/19 14:30 Blood Culture (Wb) - Anticubital Right Blood Culture - Preliminary No growth in 48 hours. 08/31/19 14:30 Blood Culture (Wb) - Anticubital Left Blood Culture - Preliminary No growth in 48 hours. Laboratory Results 09/02/19 17:08: POC Glucose 274 H 09/02/19 20:55: POC Glucose 228 H 09/03/19 06:00: Sodium 138, Potassium 3.9, Chloride 99, Carbon Dioxide 33.0 H, Anion Gap 6, BUN 21 H, Creatinine 0.67, Estim Creat Clear Calc 72.39, Est GFR (MDRD) Af Amer 116, Est GFR (MDRD) Non-Af 96, BUN/Creatinine Ratio 31.4 H, Glucose 126 H, Calcium 9.0 09/03/19 06:34: POC Glucose 126 H Current Medications Acetaminophen (Tylenol) 650 mg PO Q6H PRN PRN PRN Reason: Pain Score 1-10/Temp > 100.7 F Last Admin: 09/03/19 08:52 Dose: 650 mg Documented by: Albuterol Sulfate (Ventolin Aerosols) 2.5 mg INHALATION Q2H PRN PRN PRN Reason: SHORTNESS OF BREATH Albuterol/Ipratropium (Duoneb) 3 ml INHALATION Q4H.RT [facility] Last Admin: 09/03/19 11:00 Dose: Not Given Documented by: Azithromycin (Zithromax) 500 mg PO DAILY [facility] Last Admin: 09/03/19 08:59 Dose: 500 mg Documented by: Colestipol HCl (Colestid Tablet) 1 gm PO BID [facility] Last Admin: 09/03/19 08:58 Dose: 1 gm Documented by: Dextrose (D50w Syringe) 0 gm IV X1 PRN; Protocol PRN Reason: Hypoglycemia Divalproex Sodium (Depakote) 500 mg PO BID [facility] Last Admin: 09/03/19 09:04 Dose: 500 mg Documented by: Enoxaparin Sodium (Lovenox) 40 mg SC DAILY [facility] Last Admin: 09/03/19 08:59 Dose: 40 mg Documented by: Glucagon () 1 mg IM .X1 PRN PRN Reason: Hypoglycemia Sodium Chloride () 250 mls @ 15 mls/hr IV .[id number] PRN PRN Reason: Saline Flush Sodium Chloride () 250 mls @ 15 mls/hr IV .[id number] PRN PRN Reason: Additional IVPB Infusion Insulin Glargine (Lantus (Bkc)) 10 units SC QHS [facility] Last Admin: 09/02/19 20:57 Dose: 10 units Documented by: Insulin Human Lispro (Humalog Kwikpen (Bkc)) 0 unit SC ACHS [facility]; Protocol Last Admin: 09/03/19 06:38 Dose: Not Given Documented by: Nystatin (Mycostatin Powder) 1 applic TOPICAL BID [facility]; Protocol Last Admin: 09/03/19 09:00 Dose: 1 applicatio Documented by: Ondansetron HCl (Zofran) 4 mg IV Q8H PRN PRN PRN Reason: NAUSEA/VOMITING Pantoprazole Sodium (Protonix) 40 mg PO DAILY [facility] Last Admin: 09/03/19 09:03 Dose: 40 mg Documented by: Prednisone () 40 mg PO DAILY@0800 [facility] Last Admin: 09/03/19 08:52 Dose: 40 mg Documented by: Risperidone (Risperdal) 1 mg PO BID [facility] Last Admin: 09/03/19 11:24 Dose: 1 mg Documented by: Senna/Docusate Sodium (Senokot-S, Vonda-Colace) 2 tablet PO BID PRN PRN PRN Reason: Constipation Sodium Chloride () 10 - 40 ml IV UD PRN PRN Reason: SALINE FLUSH Last Admin: 09/02/19 20:33 Dose: 10 ml Documented by: Venlafaxine HCl (Effexor Xr) 75 mg PO DAILY [facility] Last Admin: 09/03/19 08:59 Dose: 75 mg Documented by: STROKE Vital Signs/Narrative: Vital Signs Temp Pulse Resp BP Pulse Ox Pulse Ox 09/03/19 09:22 97 09/03/19 09:21 97 09/03/19 09:16 97 09/03/19 08:53 98.2 F 87 20 H 133/85 H 100 09/03/19 08:08 69 Assessment/Plan This patient was seen in conjunction with Christine Tineo SHOT EXAMINER. I have independently interviewed and examined the patient and reviewed pertinent historical, laboratory, and other data. Please refer to her note for patient's presentation, findings, and recommendations. Patient was seen and examined. She appears much improved. Denies any new complains. Waiting on discharge planning to SNF as patient has no where to go now. Physical Exam: Gen: Comfortable, morbid obesity, not pale, not jaundiced, alert oriented x3, CVS:HS I +II, regular, no murmurs RESP: Diminished at lung bases GI: BS present and normal, nontender, no palpable organs EXT:No edema Labs and Meds reviewed ASSESSMENT: 1. Acute on chronic combined respiratory failure 2. Acute COPD exacerbation 3. Acute metabolic encephalopathy, resolved 4. Polypharmacy 5. Type 2 DM 6. Anxiety/depression 7. ISABELL 8. GERD Plan: Continue to use BiPAP and oxygen On prednisone, continue breathing treatments Home sedatives discontinued. Discharge planning ongoing Inpatient E&M: [id number] [facility] L2
[2019-09-03] MEDS: RisperiDONE 1 MG Tablet PO ×2 (11:24→20:59)
[2019-09-03 12:00] LABS: Bedside Glucose 202 mg/dL (70-110)
[2019-09-03] MEDS: Insulin Lispro 100 UNIT/ML INSULN.PEN SC ×3 (12:27→21:00)
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
[2019-09-03 16:11] LABS: Bedside Glucose 338 mg/dL (70-110)
[2019-09-03 21:16] LABS: Bedside Glucose 280 mg/dL (70-110)
[2019-09-04] VITALS (8 sets, daily range): BP systolic 125–129; BP diastolic 54–70; PULSE 66–86; RESP 16–18; TEMP 36.4–36.6; O2SAT 98–100
[2019-09-04] MEDS: Ipratropium/Albuterol Sulfate 3 ML AMPUL.NEB INHALATION (02:40)
[2019-09-04] MEDS: Acetaminophen 325 MG Tablet 650 MG PO ×2 (03:00→09:00)
--- NOTE | 2019-09-04 03:02 | CPS ---
Pt. is off BiPaP, and she wishes to stay off of device for remainder of her sleep-time. Pt. isn't exhibiting any signs of respiratory insufficiency/distress. SpO2 is 98% on 3L N/C.
[2019-09-04 06:30] LABS: Bedside Glucose 141 mg/dL (70-110)
[2019-09-04] MEDS: predniSONE 20 MG Tablet 40 MG PO (08:59)
[2019-09-04] MEDS: Nystatin Powder 15gm Bottle 1 APPLIC TOPICAL (08:59)
[2019-09-04] MEDS: Enoxaparin 40 MG/0.4 ML Syringe SC (08:59)
[2019-09-04] MEDS: RisperiDONE 1 MG Tablet PO (09:00)
[2019-09-04] MEDS: Azithromycin 250 MG Tablet 500 MG PO (09:00)
[2019-09-04] MEDS: Pantoprazole Sodium 40 MG Tablet PO (09:00)
[2019-09-04] MEDS: Divalproex Sodium 250 MG Tablet 500 MG PO (09:49)
[2019-09-04] MEDS: Venlafaxine XR 75 MG Capsule PO (09:49)
--- NOTE | 2019-09-04 10:39 | PCM.EXTCARCO ---
- Diet 09/02/19 12:31 Diet: Cardiac: Carb-Controlled Is pt able to select menu?: Yes - Routine Orders/Code Status Suppository Type: Dulcolax 10mg Suppository Frequency: Daily PRN O2 Frequency: Continuous Keep PO Greater than or Equal to (%): 89 Routine Lab Work: CBC - 5 days, BMP - 5 days Code Status: Full Code - Therapies Physical Therapy: Eval and Treat Occupational Therapy: Eval and Treat - Problem/Diagnosis (1) COPD exacerbation Status: Acute Current Visit: Yes (2) Metabolic encephalopathy Status: Acute Current Visit: Yes (3) Acute and chronic respiratory failure with hypercapnia Status: Acute Current Visit: Yes (4) Bipolar disorder Status: Chronic Current Visit: Yes (5) Anxiety and depression Status: Chronic Current Visit: Yes (6) GERD (gastroesophageal reflux disease) Status: Chronic Current Visit: Yes (7) Chronic respiratory failure Status: Chronic Current Visit: Yes (8) Obstructive sleep apnea Status: Chronic Current Visit: Yes (9) COPD (chronic obstructive pulmonary disease) Status: Chronic Current Visit: Yes (10) Type 2 diabetes mellitus Status: Chronic Current Visit: Yes - Allergies/Procedures Done in Hospital Allergies/Adverse Reactions: Allergies cephalexin [From Keflex] Allergy (Verified 08/31/19 14:12) Angioedema ciprofloxacin [From Cipro] Allergy (Verified 08/31/19 14:12) Angioedema doxycycline Allergy (Verified 08/31/19 14:12) Unknown sulfamethoxazole [From Bactrim] Allergy (Verified 08/31/19 14:12) Angioedema trimethoprim [From Bactrim] Allergy (Verified 08/31/19 14:12) Angioedema bees Adverse Reaction (Uncoded 08/31/19 14:12) Hives seafood Adverse Reaction (Uncoded 08/31/19 14:12) Hives Procedures: None - Type of Care/Length of Stay Estimated LOS: Convalescent Care Less Than 30 days Type of Care Needed: Skilled Rehab Potential: Fair Prognosis: Fair - Additional Orders/Day of Discharge Additional Orders: Bipap: 14/6 Day of Discharge: 09/04/19 - Dietary and Speech Recommendations Dietitian Recommendations/Changes: Recommend 1800 calorie controlled diet when appropriate for PO intake. - Follow Up Care Primary Care Physician: DOMINIQUE GEORGE [Other] Please Follow Up With: Layo Quijano, When: 4 weeks
--- NOTE | 2019-09-04 11:01 | CASEMGMT ---
Addendum entered by Debra Del Rosario 09/04/19 11:41: Faxed orders to [facility]. [facility] will be able to pick her up at 1p. SARABJIT notified patient, RN, and floral merchandiser Plan: D/c to [facility] at [place] under skilled level of care on a convalescent stay. Debra NERI Original Note: SARABJIT received call from Martine at [facility] and she received approval for patient. SARABJIT called [facility] and their wheelchair vans are done for the day. SARABJIT called Martine at [facility] and they may be able to pick her up around 1p. She will call SARABJIT back. SARABJIT notified physician, RN, patient, and patient's brother, Hesham. SARABJIT completed convalescent on HENS. Await orders. Debra MIRANDA MSW
[2019-09-04 11:16] LABS: Bedside Glucose 189 mg/dL (70-110)
[2019-09-04] MEDS: Insulin Lispro 100 UNIT/ML INSULN.PEN SC (11:19)
--- NOTE | 2019-09-04 12:34 | NURSING ---
offered to call pt daughter about pt being dicahged at 1300 to [facility] skilled nursing. pt declined, and stated that her daughter already knows.
--- NOTE | 2019-09-04 14:01 | DS.PCM_ITS ---
<Chicho Tao - Last Filed: 09/04/19 14:39> Discharge Date and Diagnosis Date of Admission: 08/31/19 Date of Discharge: 09/04/19 - Primary Discharge Diagnosis Cute on chronic combined respiratory failure secondary to COPD exacerbation Acute metabolic encephalopathy secondary to above Type 2 diabetes Anxiety, depression, bipolar disorder Obstructive sleep apnea GERD Nicotine abuse - Secondary Discharge Diagnosis Chronic Problems (Last Updated 04/06/19 @ 21:[address] Jory Raines, DO) Bipolar disorder (Chronic) Anxiety and depression (Chronic) GERD (gastroesophageal reflux disease) (Chronic) Chronic respiratory failure (Chronic) Obstructive sleep apnea (Chronic) COPD (chronic obstructive pulmonary disease) (Chronic) Type 2 diabetes mellitus (Chronic) Hospital Course and Treatment Imaging Results: RAD/Chest 1 View (Portable) IMPRESSION: Borderline cardiomegaly. The lungs are clear. CT/Brain/Head without Contrast IMPRESSION: Chronic involutional changes of the brain. Operations: None Procedures: None Summary of Care Provided: Hospital course: The patient is a 59 year old F with past medical history as above who presented to the emergency room with increased shortness of breath, and with significant lethargy. She was not using o2 as prescribed (3lpm) at home or bipap regularly. She was wheezy and with negative CXR. She was felt to have COPD exacerbation. Her lethargy was felt to be 2/2 CO2 retention, and complicated by multiple sedating home medications. Her trazodone, lyrica, ativan, and seroquel were held. Her other medications were continued. She was admitted to the hospital and started on aerosols, solumedrol, azithromycin, and Bipap. She did well with this regimen quickly returning to baseline and becoming stable on her normal home o2 without any further SOB or wheezing. She completed a course of azithromycin while here. She remained weak and had no home to return to as there was some social issues at home with family. She was accepted [facility]. She was discharged to SNF in stable condition. She will need to continue prednisone taper. Her trazodone was restarted as she could not sleep the last night she was here. Her other sedating medications listed above were not restarted. She will need follow up with her PCP in 1-2 weeks and with pulmonology in 4 weeks. This patient was seen by Chicho Tao PA-C under the supervision of Dr. Montez. [] - Physical Exam Vitals/I&O's: Vital Signs Temp Pulse Resp BP Pulse Ox 97.8 F 81 16 127/70 H 100 09/04/19 11:25 09/04/19 11:27 09/04/19 11:25 09/04/19 11:25 09/04/19 11:25 Oxygen Flow Rate (L/min) [ 3 AMBULATION with Oxygen] Oxygen Flow Rate (L/min) 3 Oxygen Delivery Method Nasal Cannula Weight: 232 lb 3.195 oz Body Mass Index (BMI) 42.5 Intake and Output for Last 24 Hours 09/02/19 09/03/19 09/04/19 23:59 23:59 23:59 Intake Total 540 / 540 2330 / 2330 280 / 280 Output Total 600 / 600 500 / 500 450 / 450 Balance -60 / -60 1830 / 1830 -170 / -170 General: Alert, Oriented x3, Cooperative HEENT: Atraumatic, PERRLA, EOMI, Normocephalic Neck: Supple, No JVD, Negative Carotid Bruits Lungs: Clear to auscultation, Diminished Cardiovascular: Regular rate, No murmurs Abdomen: Bowel Sounds Present, Soft, Non Tender Extremities: No edema, Capillary Refill Less than 3 Seconds Skin: No rashes, No breakdown Musculoskeletal: No Tenderness to Palpation of Joints or Extremities Neurological: Cranial nerves II-XII grossly intact Psych/Mental Status: Flat Affect, Alert and oriented to time, place, person, mood and affect Microbiology Past 72 Hours 08/31/19 14:30 Blood Culture (Wb) - Anticubital Right Blood Culture - Preliminary No growth in 48 hours. 08/31/19 14:30 Blood Culture (Wb) - Anticubital Left Blood Culture - Preliminary No growth in 48 hours. Laboratory Results 09/03/19 16:03: POC Glucose 338 H 09/03/19 20:54: POC Glucose 280 H 09/04/19 06:25: POC Glucose 141 H 09/04/19 11:09: POC Glucose 189 H Discharge Diet: Low fat/ Low Cholesterol, 1800 Calorie Control Diet, 2000 mg Sodium Diet Discharge Activity: Return to Normal Activity Home Medications: Medications to take at Discharge Colestipol HCl 1 gm PO BID 04/06/19 Divalproex Ec 500 mg PO BID 04/06/19 Insulin Glargine,Hum.rec.anlog [Basaglar Kwikpen U-100] 10 unit SQ QHS 04/06/19 Metformin HCl 1,000 mg PO BID 04/06/19 Pantoprazole Sodium [Protonix] 40 mg PO DAILY 04/06/19 Potassium Chloride [K-Dur] 30 meq PO BID 04/06/19 Venlafaxine HCl [Venlafaxine HCl ER] 75 mg PO DAILY 04/06/19 traZODone [Desyrel] 200 mg PO QHS 04/06/19 Furosemide 40 mg PO BID 04/25/19 Loperamide [Imodium] 2 mg PO Q2H PRN PRN 04/25/19 Umeclidinium Brm/Vilanterol Tr [Anoro Ellipta 62.5-25 Mcg INH] 1 puff IH DAILY #1 blst.w.dev 04/28/19 Risperidone 1 mg PO BID 09/01/19 Acetaminophen [Tylenol Tablet] 650 mg PO Q6H PRN PRN tab 09/04/19 Albuterol Aerosols [Ventolin Aerosols] 2.5 mg INHALATION Q2H PRN PRN vial.neb. 09/04/19 Insulin Lispro [Humalog KwikPen] See Protocol SUBCUT ACHS insuln.pen 09/04/19 Ipratropium/Albuterol Sulfate [Duoneb] 3 ml INHALATION Q4H.RT ampul.neb 09/04/19 Prednisone 10 mg PO UD #22 tab 09/04/19 Following Prescrptions Were Given to Patient: Prednisone 10 mg PO UD #22 tab Primary Care Physician: DOMINIQUE GEORGE [Other] Please follow up with your Primary Care Physician in: 1-2 weeks Please Follow Up With: Layo Quijano DO When: 4 weeks Disposition: Custodial facility Minutes spent on discharge:: 35 Medical Necessity - Tobacco Use Smoking Status: Current every day smoker Tobacco Use: Cigarettes Meaningful Use Info Meaningful Use Diagnoses (Choose all that apply): None applicable <[place],[place] - Last Filed: 09/04/19 15:23> Discharge Date and Diagnosis - Secondary Discharge Diagnosis Chronic Problems (Last Updated 04/06/19 @ 21:[address] Jory Olu, DO) Bipolar disorder (Chronic) Anxiety and depression (Chronic) GERD (gastroesophageal reflux disease) (Chronic) Chronic respiratory failure (Chronic) Obstructive sleep apnea (Chronic) COPD (chronic obstructive pulmonary disease) (Chronic) Type 2 diabetes mellitus (Chronic) Hospital Course and Treatment Summary of Care Provided: This patient was seen in conjunction with LEIGH Riley. I have independently interviewed and examined the patient and reviewed pertinent historical, laboratory, and other data. Please refer to LEIGH Riley note for his patient's presentation, findings, and recommendations. I have reviewed and his note and concur with his documentation 59-year-old with past medical history of Bipolar disorder, morbid obesity, type II DM, COPD with chronic respiratory failure, ISABELL on BiPAP who was brought in with lethargy. Patient has been noncompliant with her BiPAP. She was also found to be hypoxic with pulse ox in the 70s when the paramedics were called to her house. Patient had a history of negative COVID-19 testing recently. She was found to be in acute on chronic combined respiratory failure to acute COPD exacerbation. She was started on BiPAP, IV Solu-Medrol, breathing treatment. Patient's home medications including multiple sedatives were also adjusted. Patient gradually continued to improve. She had a social problem in which she did not have anywhere to live as she was previously living with her niece. She was seen by PT and OT and skilled for discharge to a residential facility. Physical Exam: Gen: Comfortable, morbid obesity, not pale, not jaundiced, alert oriented x3, CVS:HS I +II, regular, no murmurs RESP: Diminished at lung bases GI: BS present and normal, nontender, no palpable organs EXT:No edema - Physical Exam Vitals/I&O's: Vital Signs Temp Pulse Resp BP Pulse Ox 97.8 F 81 16 127/70 H 100 09/04/19 11:25 09/04/19 11:27 09/04/19 11:25 09/04/19 11:25 09/04/19 11:25 Oxygen Flow Rate (L/min) [ 3 AMBULATION with Oxygen] Oxygen Flow Rate (L/min) 3 Oxygen Delivery Method Nasal Cannula Weight: 105.324 kg Body Mass Index (BMI) 42.5 Intake and Output for Last 24 Hours 0409/03/19 09/04/19 23:59 23:59 23:59 Intake Total 540 / 540 2330 / 2330 280 / 280 Output Total 600 / 600 500 / 500 450 / 450 Balance -60 / -60 1830 / 1830 -170 / -170 Microbiology Past 72 Hours 08/31/19 14:30 Blood Culture (Wb) - Anticubital Right Blood Culture - Preliminary No growth in 48 hours. 08/31/19 14:30 Blood Culture (Wb) - Anticubital Left Blood Culture - Preliminary No growth in 48 hours. Laboratory Results 09/03/19 16:03: POC Glucose 338 H 09/03/19 20:54: POC Glucose 280 H 09/04/19 06:25: POC Glucose 141 H 09/04/19 11:09: POC Glucose 189 H Inpatient E&M: 15882 Disch Hosp
== END 2019-09-04 12:47 | disposition skilled nursing facility (03) | DRG 189 ==
LOC: ED 16:09 → PCU 16:15
PROVIDERS: Nurse Practitioner Family; Admitting Provider Hospitalist; Emergency Provider Emergency Medicine; Visit Provider Internal Medicine
DX: J96.22 Acute and chronic respiratory failure with hypercapnia (principal); G93.41 Metabolic encephalopathy; J44.1 Chronic obstructive pulmonary disease with (acute) exacerbation; Z68.41 Body mass index [BMI] 40.0-44.9, adult; J96.21 Acute and chronic respiratory failure with hypoxia; E11.9 Type 2 diabetes mellitus without complications; G47.33 Obstructive sleep apnea (adult) (pediatric); K21.9 Gastro-esophageal reflux disease without esophagitis; F41.9 Anxiety disorder, unspecified; F31.9 Bipolar disorder, unspecified; F17.210 Nicotine dependence, cigarettes, uncomplicated; E66.01 Morbid (severe) obesity due to excess calories; Z79.4 Long term (current) use of insulin; Z91.19 Patient's noncompliance with other medical treatment and regimen; Z99.81 Dependence on supplemental oxygen; R29.6 Repeated falls; Z59.0 Homelessness
CPT/HCPCS: 36415; 36600; 70450; 71045; 80048; 81001; 82803; 82962; 83605; 84484; 85025; 87040; 92610; 93005; 94002; 94003; 94640; 94667; 94668; 96374; 97110; 97116; 97162; 97166; 97530; 97535; 97802; 99285; 99406; A4216